=== PATIENT | female | born 1970 | race Caucasian/White ===

== ENCOUNTER → 2024-02-22 09:49 | Outpatient (BNVA) | payer BC, SELFPAY | PROVIDERS: PCP Physician Assistant Medical; Visit Provider Physician Assistant Surgical ==

== ENCOUNTER 2024-03-17 08:11 | Outpatient (AMB) | payer BC, SELFPAY ==
--- NOTE | 2024-03-17 11:57 | A.OFFVIS_ITS ---
VS Expanded 03/17/24 12:12 Height 5 ft 5 in Weight 273 lb BMI 45.4 Body Fat % 48.3 Body Fat Mass 131.8 Fat Free Mass 141 Visceral Fat Rating 16 Body Water % 36.8 Body Water Mass 100.4 Basal Metabolic Rate/Score 2,005 Intake Visit Reasons: [facility] [employer] BMI 45.4 Allergies acetaminophen [From Percocet] Allergy (Mild, Verified 03/17/24 11:58) Hives lisinopril Allergy (Mild, Verified 03/17/24 11:58) Cough oxycodone [From Percocet] Allergy (Mild, Verified 03/17/24 11:58) Hives Medication List - Last Reconciled 03/17/24 by Freeman Huffman MD amlodipine 10 mg PO DAILY atorvastatin 40 mg PO DAILY bupropion HCl XL 150 mg PO QAM losartan 100 mg PO DAILY sertraline 100 mg PO DAILY tirzepatide (Mounjaro) 12.5 mg subcut QWEEK HPI HPI [facility] BMI 45.4: Details: Start time: 11.55am, End time: 12.47pm ?I spent 47 minutes speaking with the patient on the phone plus an additional 5 minutes reviewing and updating records for a total of 52 minutes HPI Comments Details: Previous weight loss efforts: Mounjaro for 1yr: 3lbs, hypnosis, exercise Wakes up: 4am, Sleeps: 10pm Breakfast: 5.30am (apple sauce, bread, ramon) Lunch: 12pm (Arabic yogurt, cottage cheese, turkey with cheese Dinner: 5.30pm (chicken, lean cousine) Snacks: 8pm (fruits, or popcorn) Exercise: Has a treadmill Fluids: Coffee (1 cup/day with creamer), tea: none, soda: none, juice: none, ETOH: none PFSH Medical History (Updated 03/17/24 @ 12:04 by Freeman Huffman MD) Anxiety Depression Hyperlipidemia Hypertension Obstructive sleep apnea on CPAP Non-insulin dependent type 2 diabetes mellitus Morbid obesity Surgical History (Updated 02/22/24 @ 10:49 by Ramona Cartagena CMA) Hx of cholecystectomy Hx of appendectomy Hx of hysterectomy Social History (Updated 02/22/24 @ 10:49 by Ramona Cartagena CMA) Alcohol intake: current Alcohol intake frequency: holidays/special occasions only Alcohol type: wine and other Patient Tobacco Use Status: Never used Tobacco Telehealth Telehealth Telehealth Platform: Telephone Location of provider rendering services: practice address Location of patient: address on file Patient Identification confirmed using: Name, : Yes Telehealth method: voice only Patient verbally consented to treatment: Yes Patient verbally consented to billing insurance company: Yes Patient informed of any privacy concerns related to visit: Yes Minutes spent on Phone/Video with Pt.: 52 Assessment & Plan Assessment & Plan (1) Morbid obesity: Code(s): E66.01 - Morbid (severe) obesity due to excess calories Category: Medical Plan: 1.? Plan for lap sleeve gastrectomy. If diaphragmatic or ventral hernias are present at time of surgery, these will be repaired laparoscopically as well. 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 I emphasized the importance of close follow-up, adherence to instructions and good communication. 2. You will receive a link of our software danielle to generate an individualized nutritional and exercise plan specific for you. Please send me a screenshot of t he plans you will generate Meal to include lean meat (beef, fish, pork, turkey, chicken), or portuguese yogurt, or egg whites, or beans with a salad with olive oil and fruits (berries, pears, apples, kiwi). Avoid salt, breads, potatoes, rice, pasta, desserts. ?3. If you choose shakes, each shake would be drunk slowly, like coffee in a period of 2 hours. ?4. If you choose bars, cut each bar in 4 pieces and eat each piece in 30min ?to make each bar last 2 hours. ?5. I emphasized the importance of measuring accurately the food portion and measure it when serving the food in plate ?6. The meal portions include a specific number of forks of meat and salad. You always eat the meat portion but you can replace up to half of salad/vegetables portion with rice, potatoes or pasta, or a fruit ?if you like. The less you do it the better weight loss will be. ?7. One full-size fork is what it can be scooped on the fork without falling aside and not what can be bit with the fork. Use regular forks like those you find in a typical restaurant. ?8.? Please send me weight measurements as soon as possible and then once a week. Always include your diet and exercise plan. 9. The best choice would be to purchase a stationary bike, elliptical or treadmill at home that can track calories. Let me know if you do so I can give you an exercise plan. ?10.?It is important of avoiding and for at least 18 months postoperatively and has been discussed at the infosession. ?11. Goal is to lose at least 1.5-2lbs per week ?12. Goal to lose 10% of your weight before surgery, which is about 27lbs. Ultimate weight goal: 246lbs before surgery 13. Please follow the diet plan exactly without any change. If you don't like something about the plan or you feel hungry you need to communicate with me so I can help you revise the plan. You should not change the plan yourself. 14. Check your blood sugar daily. Let me know immediately if it is below 100 15. Check your blood pressure daily and let me know if your blood pressure is below 120/70 Orders: Orders Lipid Panel Today E11.9 - Type 2 diabetes mellitus without complications, E66.01 - Morbid (severe) obesity due to excess calories, E78.5 - Hyperlipidemia, unspecified, G47.33 - Obstructive sleep apnea (adult) (pediatric), I10 - Essential (primary) hypertension IRON PROFILE Today E11.9 - Type 2 diabetes mellitus without complications, E66.01 - Morbid (severe) obesity due to excess calories, E78.5 - Hyperlipidemia, unspecified, G47.33 - Obstructive sleep apnea (adult) (pediatric), I10 - Essential (primary) hypertension Comprehensive Met. Panel Today E11.9 - Type 2 diabetes mellitus without complications, E66.01 - Morbid (severe) obesity due to excess calories, E78.5 - Hyperlipidemia, unspecified, G47.33 - Obstructive sleep apnea (adult) (pediatric), I10 - Essential (primary) hypertension Vitamin B12 and Folate Today E11.9 - Type 2 diabetes mellitus without complications, E66.01 - Morbid (severe) obesity due to excess calories, E78.5 - Hyperlipidemia, unspecified, G47.33 - Obstructive sleep apnea (adult) (pediatric), I10 - Essential (primary) hypertension C Reactive Protein Today E11.9 - Type 2 diabetes mellitus without complications, E66.01 - Morbid (severe) obesity due to excess calories, E78.5 - Hyperlipidemia, unspecified, G47.33 - Obstructive sleep apnea (adult) (pediatric), I10 - Essential (primary) hypertension Vitamin A Today E11.9 - Type 2 diabetes mellitus without complications, E66.01 - Morbid (severe) obesity due to excess calories, E78.5 - Hyperlipidemia, unspecified, G47.33 - Obstructive sleep apnea (adult) (pediatric), I10 - Essential (primary) hypertension Vitamin D 25-OH Total Today E11.9 - Type 2 diabetes mellitus without complications, E66.01 - Morbid (severe) obesity due to excess calories, E78.5 - Hyperlipidemia, unspecified, G47.33 - Obstructive sleep apnea (adult) (pediatric), I10 - Essential (primary) hypertension XR chest 2V Today E11.9 - Type 2 diabetes mellitus without complications, E66.01 - Morbid (severe) obesity due to excess calories, E78.5 - Hyperlipidemia, unspecified, G47.33 - Obstructive sleep apnea (adult) (pediatric), I10 - Essential (primary) hypertension Insulin Today E11.9 - Type 2 diabetes mellitus without complications, E66.01 - Morbid (severe) obesity due to excess calories, E78.5 - Hyperlipidemia, unspecified, G47.33 - Obstructive sleep apnea (adult) (pediatric), I10 - Essential (primary) hypertension Hemoglobin A1c Today E11.9 - Type 2 diabetes mellitus without complications, E66.01 - Morbid (severe) obesity due to excess calories, E78.5 - Hyperlipidemia, unspecified, G47.33 - Obstructive sleep apnea (adult) (pediatric), I10 - Essential (primary) hypertension H Pylori Breath Test Today E11.9 - Type 2 diabetes mellitus without complications, E66.01 - Morbid (severe) obesity due to excess calories, E78.5 - Hyperlipidemia, unspecified, G47.33 - Obstructive sleep apnea (adult) (pediatric), I10 - Essential (primary) hypertension Complete Blood Count Auto Diff Today E11.9 - Type 2 diabetes mellitus without complications, E66.01 - Morbid (severe) obesity due to excess calories, E78.5 - Hyperlipidemia, unspecified, G47.33 - Obstructive sleep apnea (adult) (pediatric), I10 - Essential (primary) hypertension Zinc Today E11.9 - Type 2 diabetes mellitus without complications, E66.01 - Morbid (severe) obesity due to excess calories, E78.5 - Hyperlipidemia, unspecified, G47.33 - Obstructive sleep apnea (adult) (pediatric), I10 - Essential (primary) hypertension Vitamin B1 Today E11.9 - Type 2 diabetes mellitus without complications, E66.01 - Morbid (severe) obesity due to excess calories, E78.5 - Hyperlipidemia, unspecified, G47.33 - Obstructive sleep apnea (adult) (pediatric), I10 - Essential (primary) hypertension TSH reflex Free T4 Today E11.9 - Type 2 diabetes mellitus without complications, E66.01 - Morbid (severe) obesity due to excess calories, E78.5 - Hyperlipidemia, unspecified, G47.33 - Obstructive sleep apnea (adult) (pediatric), I10 - Essential (primary) hypertension Ferritin Today E11.9 - Type 2 diabetes mellitus without complications, E66.01 - Morbid (severe) obesity due to excess calories, E78.5 - Hyperlipidemia, unspecified, G47.33 - Obstructive sleep apnea (adult) (pediatric), I10 - E ssential (primary) hypertension US abdomen comp w elastography Today E11.9 - Type 2 diabetes mellitus without complications, E66.01 - Morbid (severe) obesity due to excess calories, E78.5 - Hyperlipidemia, unspecified, G47.33 - Obstructive sleep apnea (adult) (pediatric), I10 - Essential (primary) hypertension ECG 12 lead EKG Today E11.9 - Type 2 diabetes mellitus without complications, E66.01 - Morbid (severe) obesity due to excess calories, E78.5 - Hyperlipidemia, unspecified, G47.33 - Obstructive sleep apnea (adult) (pediatric), I10 - Es sential (primary) hypertension FL upper GI w air Today E11.9 - Type 2 diabetes mellitus without complications, E66.01 - Morbid (severe) obesity due to excess calories, E78.5 - Hyperlipidemia, unspecified, G47.33 - Obstructive sleep apnea (adult) (pediatric), I10 - Essential (primary) hypertension Referrals Behavioral Health Referral E11.9 - Type 2 diabetes mellitus without complications, E66.01 - Morbid (severe) obesity due to excess calories, E78.5 - Hyperlipidemia, unspecified, G47.33 - Obstructive sleep apnea (adult) (pediatric), I10 - Essential (primary) hypertension
[2024-03-17 12:12] VITALS: BMI 45.4
== END 2024-03-17 12:49 | disposition home or self-care (01) ==
LOC: HO.HBS 08:12
PROVIDERS: PCP Physician Assistant Medical; Visit Provider Surgery
DX: E66.01 Morbid (severe) obesity due to excess calories (principal); Z68.42 Body mass index [BMI] 45.0-49.9, adult
CPT/HCPCS: 99443

== ENCOUNTER → 2024-03-17 08:11 | Outpatient (BNVA) | payer BC, SELFPAY | PROVIDERS: PCP Physician Assistant Medical; Visit Provider Surgery ==

== ENCOUNTER 2024-03-28 16:11 | Outpatient (AMB) | payer BC, SELFPAY ==
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
== END 2024-03-28 16:34 | disposition home or self-care (01) ==
LOC: HO.HBST 16:11
PROVIDERS: PCP Physician Assistant Medical; Visit Provider Counselor Mental Health
DX: F32.A Depression, unspecified (principal); E66.01 Morbid (severe) obesity due to excess calories
CPT/HCPCS: 90791

== ENCOUNTER → 2024-03-28 16:11 | Outpatient (BNVA) | payer BC, SELFPAY | PROVIDERS: PCP Physician Assistant Medical; Visit Provider Counselor Mental Health ==

== ENCOUNTER 2024-03-31 07:37 | Outpatient (REF) | payer BC, SELFPAY ==
--- NOTE | ~2024-03-31 | US_ITS ---
EXAMINATION: US COMPLETE ABDOMEN WITH LIVER ELASTOGRAPHY CLINICAL INFORMATION: Morbid obesity. COMPARISON: None available. TECHNIQUE: Real-time imaging of the abdominal viscera. Noninvasive ultrasound liver fibrosis assessment is performed using Mikhail ElastPQ point quantification shear wave elastography (2D-SWE) with a C5-2 MHz transducer. Multiple elastography samples are obtained. FINDINGS: PANCREAS: The visualized pancreatic head and body are normal in appearance. The remainder of the pancreas is obscured from visualization by the overlying bowel gas. ABDOMINAL AORTA: The proximal, middle, and distal aortic segments are normal in caliber. INFERIOR VENA CAVA: Visualized portions are normal. LIVER: The liver is enlarged with increased echogenicity consistent with hepatic steatosis. No focal lesion or intrahepatic biliary duct dilatation. The right lobe measures 20.2 cm in length. The left lobe measures 13.3 cm in length. Portal flow is hepatopedal. Shear wave liver elastography median stiffness is 1.21 m/s (reference: normal median stiffness is 1.3 m/s or less). IQR/median stiffness to assess sampling precision is 0.12 (reference: good quality data set is IQR/median stiffness of 0.15 or less). GALLBLADDER: Normal. The gallbladder is physiologically distended without evidence of stones, sludge, polyps, wall thickening or pericholecystic fluid. COMMON BILE DUCT: Normal in caliber measuring 0.8 cm in diameter. RIGHT KIDNEY: Normal. No hydronephrosis. No renal calculi or focal parenchymal lesions. The kidney measures 13.6 cm in maximum dimension. LEFT KIDNEY: A benign 4.5 cm upper pole Bosniak class I renal cyst is noted which requires no additional imaging or follow up. There is a brightly echogenic 1.1 cm round cortical mass present in the mid kidney with ultrasound appearances consistent with an angiomyolipoma. No hydronephrosis. No renal calculi. The kidney measures 12.4 cm in maximum dimension. SPLEEN: Normal. The spleen measures 11.7 cm in maximum dimension. FREE FLUID: None. US/US abdomen comp w elastography IMPRESSION: 1. Enlarged fatty liver. 2. Liver Elastography: In the absence of other known clinical signs, measurements rule out compensated advanced chronic liver disease. If there are known clinical signs, further testing may be needed for confirmation. 3. Incidentally noted solid 1.1 cm left renal mass with appearances consistent with a benign angiomyolipoma. This could be confirmed with noncontrast CT scan. REFERENCE: Society of Radiologists in Ultrasound Liver Stiffness Thresholds (2020): LIVER STIFFNESS THRESHOLDS: *Liver Stiffness equal or less than 1.3 m/s: High probability of being normal. *Liver Stiffness less than 1.7 m/s: In the absence of other known clinical signs, rules out compensated advanced chronic liver disease. *Liver Stiffness 1.7-2.1 m/s: Suggestive of compensated advanced chronic liver disease but need further test for confirmation. *Liver Stiffness over 2.1 m/s: Rules in compensated advanced chronic liver disease. *Liver Stiffness over 2.4 m/s: Suggestive of clinically significant portal hypertension. QUALITY OF DATA SET: *IQR/Median value equal or less than 0.15 implies a quality data set. *IQR/Median value over 0.15 implies a poor quality data set. SIGNIFICANT CHANGE FROM PRIOR EXAM: Significant change if liver stiffness measurement is 10% or greater from prior exam. OTHER CONSIDERATIONS: The stage of liver fibrosis may be overestimated in the setting of acute hepatitis, liver inflammation, elevated liver function tests, hepatic vascular congestion, obstructive cholestasis, non-fasting state, and infiltrative diseases such as amyloidosis and lymphoma. In some patients with NAFLD, the liver stiffness thresholds for compensated advanced chronic liver disease may be lower. In causes other than viral hepatitis and NAFLD, liver stiffness thresholds are not well established.
--- NOTE | ~2024-03-31 | XR_ITS ---
EXAMINATION: XR CHEST CLINICAL INFORMATION: Morbid, severe obesity due to excess calories. COMPARISON: None available. TECHNIQUE: 2 views of the chest were obtained. FINDINGS: There is no gross pneumothorax. Lung volumes are low. Heart size is normal. No focal consolidation to suggest pneumonia. Mild blunting of the left costophrenic angle may represent trace pleural effusion or pleural thickening. XR/XR chest 2V IMPRESSION: Mild blunting of the left costophrenic angle may represent trace pleural effusion or pleural thickening. This study was presented today April 10, 2024 for interpretation. STAT results provided at this time as requested by referring provider.
[2024-03-31 07:54] LABS: MANUAL DIFF FLAG NO
--- NOTE | 2024-03-31 07:56 | ECG_ITS ---
Test Reason : preop, obesity Blood Pressure : / mmHG Vent. Rate : 075 BPM Atrial Rate : 075 BPM P-R Int : 148 ms QRS Dur : 098 ms QT Int : 412 ms P-R-T Axes : 038 -06 029 degrees QTc Int : 460 ms Normal sinus rhythm Minimal voltage criteria for LVH, may be normal variant ( R in aVL ) Nonspecific ST abnormality Abnormal ECG No previous ECGs available Referred By: Freeman Huffman Electronically Signed By:Jaycob Casiano
[2024-03-31 08:43] LABS: Basophils Percent Auto 0.6 % (0-2); Eosinophils Absolute Auto 0.2 X10*3/uL (0.0-0.4); Eosinophils Percent Auto 3.5 % (0-4); Hematocrit 40.7 % (37.0-47.0); Hemoglobin 13.4 g/dl (12.0-16.0); Imm Gran Abs Auto 0.03 X10*3/uL (0.00-0.03); Imm Gran Pct Auto 0.4 % (0.0-0.4); Lymphocytes Absolute Auto 1.6 X10*3/uL (1.2-4.9); Lymphocytes Percent Auto 22.8 % (20-40); Mean Corpuscular HGB Conc 32.9 g/dl (31.0-35.0); Mean Corpuscular Hemoglobin 31.9 pg (27.0-33.0); Mean Corpuscular Volume 96.9 fL (80.0-98.0); Mean Platelet Volume 9.3 fL (9.4-12.3); Monocytes Absolute Auto 0.4 X10*3/uL (0.1-1.2); Monocytes Percent Auto 5.3 % (2-11); Neutrophils Absolute Auto 4.7 x10*3/uL (2.0-8.3); Neutrophils Percent Auto 67.4 % (45-73); Platelet Count 351 X10*3/uL (160-400); White Blood Count 6.9 X10*3/uL (4.8-10.8)
[2024-03-31 09:20] LABS: Alanine Aminotransferase 53 U/L (0-31); Albumin Level 4.4 g/dL (3.5-5.0); Alkaline Phosphatase 94 U/L (39-117); Anion Gap 12 (12-20); Aspartate Amino Transferase 28 U/L (5-31); Bilirubin Total 0.8 mg/dL (0.0-1.0); Blood Urea Nitrogen 15 mg/dL (9-16); C Reactive Protein 0.79 mg/dL (< or = 0.50); Calcium 9.4 mg/dL (8.4-10.2); Carbon Dioxide 27 mmol/L (22-29); Chloride 107 mmol/L (96-108); Cholesterol 134 mg/dL (<200); Estimated Glomerular Filt Rate > 60; Glucose Random 115 mg/dL (60-115); HDL Cholesterol 36 mg/dL (>40); Iron 82 mcg/dL (30-160); LDL Cholesterol Calculated 78 mg/dL (<100); Percent Iron Saturation 27 % (15-50); Potassium 4.1 mmol/L (3.3-5.1); Sodium 142 mmol/L (135-145); Total Iron Binding Capacity 304 mcg/dL (228-428); Total Protein 7.4 g/dL (6.5-8.0); Triglycerides 101 mg/dL (<150); Unsaturated Iron Binding 222 ug/dL
[2024-03-31 09:25] LABS: Estimated Average Glucose 117 mg/dL; Hemoglobin A1c % 5.7 % (<6.0)
[2024-03-31 09:40] LABS: Ferritin 200 ng/mL (10-250); TSH reflex Free T4 1.93 uIU/mL (0.32-4.0); Vitamin D 25-OH Total 10.2 ng/mL (>30)
[2024-03-31 09:58] LABS: Insulin 27 uU/mL (2-29)
[2024-03-31 11:12] LABS: Vitamin B12 1484 pg/mL (200-900)
[2024-04-05 02:14] LABS: Zinc 75 mcg/dL (60-130)
[2024-04-05 16:34] LABS: Vitamin B1 <6 nmol/L (8-30)
[2024-04-05 23:38] LABS: Vitamin A 45 mcg/dL (38-98)
== END 2024-03-31 07:38 | disposition home or self-care (01) ==
LOC: HO.US 07:37
PROVIDERS: PCP Physician Assistant Medical; Visit Provider Surgery
DX: E66.01 Morbid (severe) obesity due to excess calories (principal); E11.9 Type 2 diabetes mellitus without complications; I10 Essential (primary) hypertension; E78.5 Hyperlipidemia, unspecified; G47.33 Obstructive sleep apnea (adult) (pediatric)
CPT/HCPCS: 36415; 71046; 76700; 76981; 80053; 80061; 82306; 82607; 82728; 82746; 83036; 83525; 83540; 84425; 84443; 84590; 84630; 85025; 86140; 93005

== ENCOUNTER → 2024-03-31 07:56 | Outpatient (BNV) | payer BC, SELFPAY | PROVIDERS: PCP Physician Assistant Medical; Visit Provider Internal Medicine Cardiovascular Disease | DX: R94.31 Abnormal electrocardiogram [ECG] [EKG] (principal) | CPT/HCPCS: 93010 ==

== ENCOUNTER 2024-04-10 15:53 | Outpatient (AMB) | payer BC, SELFPAY ==
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
== END 2024-04-10 16:51 | disposition home or self-care (01) ==
PROVIDERS: PCP Physician Assistant Medical; Visit Provider Counselor Mental Health
DX: F33.1 Major depressive disorder, recurrent, moderate (principal); E66.01 Morbid (severe) obesity due to excess calories; Z68.45 Body mass index [BMI] 70 or greater, adult
CPT/HCPCS: 90834

== ENCOUNTER → 2024-04-10 15:53 | Outpatient (BNVA) | payer BC, SELFPAY | PROVIDERS: PCP Physician Assistant Medical; Visit Provider Counselor Mental Health ==

== ENCOUNTER 2024-04-26 08:41 | Day surgery (SDC) | payer BC, SELFPAY ==
[2024-04-21 14:30] VITALS: BMI 45.4
--- NOTE | 2024-04-24 12:19 | HO.ANESPROP2 ---
Documented by User: Parul Rutherford NP 04/24/24 12:21 HPI - Anesthesia Eval Consult details Narrative: 53yo F for Upper Endoscopy Anesthesia Pre-Procedure Meds Is the patient on any of the following meds?: GLP1/DPP4 PMFSH Active Problems Active Problems: All Active Problems Abnormal EKG (Acute) Vitamin D deficiency (Acute) Anxiety (Acute) Depression (Acute) Hyperlipidemia (Acute) Hypertension (Acute) Obstructive sleep apnea on CPAP (Acute) Non-insulin dependent type 2 diabetes mellitus (Acute) Morbid obesity (Acute) Past Medical History Medical History Anxiety Depression Hyperlipidemia Hypertension Obstructive sleep apnea on CPAP Non-insulin dependent type 2 diabetes mellitus Morbid obesity Surgical History Surgical History Hx of cholecystectomy Hx of appendectomy Hx of hysterectomy Social History Social History Alcohol intake: current Alcohol intake frequency: holidays/special occasions only Alcohol type: wine and other Patient Tobacco Use Status: Never used Tobacco Are you DNR?: No Advance Directives: No Advance Directives Information Provided: Yes Advance Directives on File: No Nutrition Risks: No Nutritional Risk Patient : No Meds Allergies Allergy/AdvReac Type Severity Reaction Status Date / Time lisinopril Allergy Mild Cough Verified 03/17/24 11:58 oxycodone [From Percocet] Allergy Mild Hives Verified 03/17/24 11:58 Home Medications ?Medication ?Instructions ?Recorded ?Confirmed ?Last Taken ?Type amlodipine 10 mg tablet 10 mg PO DAILY 02/22/24 04/21/24 Unknown History atorvastatin 40 mg tablet 40 mg PO DAILY 02/22/24 04/21/24 Unknown History losartan 100 mg tablet 100 mg PO DAILY 02/22/24 04/21/24 Unknown History sertraline 100 mg tablet 100 mg PO DAILY 02/22/24 04/21/24 Unknown History bupropion HCl 150 mg 24 hr tablet, 150 mg PO QAM 03/17/24 04/21/24 Unknown History extended release tirzepatide 12.5 mg/0.5 mL 12.5 mg subcut QWEEK 03/17/24 04/21/24 Unknown History subcutaneous pen injector (Liv) Exam Height,Weight and Vital Signs: Height 5 ft 5 in Weight 123.831 kg Narrative Narrative: EKG 03/2024 Vent. Rate : 075 BPM Atrial Rate : 075 BPM P-R Int : 148 ms QRS Dur : 098 ms QT Int : 412 ms P-R-T Axes : 038 -06 029 degrees QTc Int : 460 ms Normal sinus rhythm Minimal voltage criteria for LVH, may be normal variant ( R in aVL ) Nonspecific ST abnormality Abnormal ECG No previous ECGs available Assessment and Plan Assessment Anesthesia Assessment: Chart Reviewed Documented by User: Stacy Jeffries MD 04/26/24 10:43 PMFSH Past Medical History Medical History Anxiety Depression Hyperlipidemia Hypertension Obstructive sleep apnea on CPAP Non-insulin dependent type 2 diabetes mellitus Morbid obesity Family History Family history of problems with anesthesia: No Surgical History Surgical History Hx of cholecystectomy Hx of appendectomy Hx of hysterectomy History of Problems with Anesthesia: No Social History Social History Alcohol intake: current Alcohol intake frequency: holidays/special occasions only Alcohol type: wine and other Patient Tobacco Use Status: Never used Tobacco Are you DNR?: No Advance Directives: No Advance Directives Information Provided: Yes Advance Directives on File: No Nutrition Risks: No Nutritional Risk Patient : No Meds Allergies Allergy/AdvReac Type Severity Reaction Status Date / Time lisinopril Allergy Mild Cough Verified 03/17/24 11:58 oxycodone [From Percocet] Allergy Mild Hives Verified 03/17/24 11:58 Home Medications ?Medication ?Instructions ?Recorded ?Confirmed ?Last Taken ?Type amlodipine 10 mg tablet 10 mg PO DAILY 02/22/24 04/21/24 Unknown History atorvastatin 40 mg tablet 40 mg PO DAILY 02/22/24 04/21/24 Unknown History losartan 100 mg tablet 100 mg PO DAILY 02/22/24 04/21/24 Unknown History sertraline 100 mg tablet 100 mg PO DAILY 02/22/24 04/21/24 Unknown History bupropion HCl 150 mg 24 hr tablet, 150 mg PO QAM 03/17/24 04/21/24 Unknown History extended release tirzepatide 12.5 mg/0.5 mL 12.5 mg subcut QWEEK 03/17/24 04/21/24 Unknown History subcutaneous pen injector (Mounjaro) Exam Height,Weight and Vital Signs: Height 5 ft 5 in Weight 123.831 kg Vital Signs Temp Pulse Resp BP Pulse Ox O2 Del Method 04/26/24 09:24 97.4 F 63 16 130/70 98 Room Air Pertinent Lab Results Pertinent Lab Results: Lab Results 04/26/24 Range/Units 08:52 POC Glucose 100 (60-115) mg/dL Airway Mallampati Class: III TM Dist: >3cm Neck ROM: Full Loose/Missing/Broken Teeth: No (Denies broken, loose, missing teeth) Heart: RRR Lungs: CTAB Assessment and Plan Assessment Anesthesia Assessment: Anesthesia Plan Discussed and Chart Reviewed Final Anesthetic Review Family History of Problems with Anesthesia: No History of Problems with Anesthesia: No NPO: Yes ASA Class: III Final Preanesthetic Review: No Changes in Pt Med Stat, Meds/Allgs Chart Reviewed, Consent Obtained/Reviewed and Anes Risks/Benef Reviewed Patient Risk: Intermediate Procedure Risk: Low Assessment/Block/Sedation in SS: Assess/Block/Sedation-SS Anesthetic Plan Anesthetic Plan: GA and TIVA Disposition: Standard PACU
[2024-04-26 09:11] LABS: Glucose, Whole Blood 100 mg/dL (60-115)
[2024-04-26 09:24] VITALS: BP 130/70; PULSE 63; RESP 16; TEMP 36.3; O2SAT 98
[2024-04-26] MEDS: Lactated Ringers 1,000 ML 100 ML IVCONT (09:32)
--- NOTE | 2024-04-26 10:32 | P.HPSUR_ITS ---
Pre-Procedural Eval Section A - 24 Hr Update-Section A only Date of Service: 04/26/24 The patient is an INPATIENT: No The patient has been examined within 24 hours of the surgical procedure. The History & Physical has been completed within 30 days and I have reviewed it.: Yes Section B - Complete if H&P > 30 days Chief Complaint: Morbid (severe) obesity due to excess calories Details of Present Illness: GERD Relevant Family History (Specify if Yes): No Relevant Social History: None Present Medications: None Medical History: No relevant PMH History of Previous Operations: No relevant previous surgery Allergies: Allergies Allergy/AdvReac Type Severity Reaction Status Date / Time lisinopril Allergy Mild Cough Verified 03/17/24 11:58 oxycodone [From Percocet] Allergy Mild Hives Verified 03/17/24 11:58 Review of Systems Sugical H&P ROS: Negative: Constitution, Cardiovascular, Respiratory, Neurological, Psychiatric, Hem-Onc, Allergic/Immunologic, Gastrointestinal, Genitourinary, Musculoskeletal, Integumentary, Endocrine and Eyes/Ears/Nose/Throat Exam Surgical H&P Exam: Normal: HEENT, Normal: Heart, Normal: Lungs, Normal: Extre mities, Normal: Abdomen, Normal: Skin and Normal: Neurological Plan Diagnosis/Plan: Unchanged (EGD to assess etiology of GERD. Risks of bleeding and perforation were discussed with the patient and he is in agreement with the plan.) I have reviewed the history and physical and performed a pertinent physical examination on my patient. No changes have occurred unless specified. Time Spent With Patient Time: Total time managing care of this patient today ____ minutes.
--- NOTE | 2024-04-26 10:38 | P.BOP_ITS ---
Brief Operative Note Date of Service: 04/26/24 Pre-op diagnosis: GERD Post-op diagnosis: same Procedure: PROCEDURE DATE: 04/26/2024 PREOPERATIVE DIAGNOSIS: GERD POSTOPERATIVE DIAGNOSIS: ?Same as above. 1) small hiatal hernia, 2) distal gastritis PROCEDURE: Yexlwwtn-[id number]-qodgbzoyghnt with biopsies Surgeon: Matthew Huffman M.D.. Ph.D. Director Of Early Childhood: None ? Anesthesia: IV sedation Estimated blood loss: ?Minimal FINDINGS AND PROCEDURE: ? OPERATIVE INDICATIONS: ?The patient is a 53 year old female known to me who is interested in bariatric surgery. The patient has GERD. Based on this information I recommended an upper endoscopy to evaluate the patient's symptoms. Risks and complications of the surgery were discussed with the patient in advance particularly the possibility of perforation or bleeding that may require surgical intervention. The patient understood the risks and was in agreement with the plan. ? PROCEDURE: After informed consent was obtained by the patient, the patient was ?transferred to the Operating Room and was placed in the supine position.? After successful induction of IV sedation, a mouth block was inserted and the patient was placed in the left lateral decubitus position. An upper endoscopy was performed next, the oropharynx and esophagus appeared within the normal limits. There was a small hiatal hernia. The z-line was smooth. Two biopsies were obtained from the distal esophagus 2-3 cm proximal to the GE junction and two additional biopsies from the GE junction. The stomach was entered and it appeared to be of normal size. There was mild gastritis at distal antrum. There was no stricture or ulcer. A biopsy was obtained from the gastric fundus and the antrum. No significant bleeding was noted from any of the biopsy sites. The scope was then advanced into the duodenum which appeared to be normal as well. At that point the duodenum ?and the stomach were decompressed and the scope was withdrawn from the patient's mouth. The patient extubated and was transferred in stable condition to the Recovery Room for further care. I was present and performed all steps of the procedure. There were no residents to assist with this case. Jasvir Huffman M.D., Ph.D. Surgeon: Freeman Huffman MD Anesthesia: MAC Was an Director Of Early Childhood used for this Procedure?: No Estimated blood loss (mL): 0 IV fluids (mL): 400 Urine output (mL): 0 (No Blackmon to record output) Pathology: other (1) antrum x1, 2) fundus x1, 3) GE junction x2, 4) distal esophagus x2) Condition: stable Disposition: PACU
[2024-04-26 11:18] VITALS: BP 137/63; PULSE 86; RESP 18; TEMP 36.6; O2SAT 98
[2024-04-26 11:33] VITALS: BP 129/65; PULSE 69; RESP 16; TEMP 36.4; O2SAT 98
== END 2024-04-26 12:00 | disposition home or self-care (01) ==
PROVIDERS: PCP Physician Assistant Medical; Visit Provider Surgery
PROC: 0DJ08ZZ Inspection of Upper Intestinal Tract, Via Natural or Artificial Opening Endoscopic (ICD-10-PCS; CPT 43235; principal; 2024-04-26 10:20)
DX: K21.9 Gastro-esophageal reflux disease without esophagitis (principal); K44.9 Diaphragmatic hernia without obstruction or gangrene; K29.60 Other gastritis without bleeding; E66.01 Morbid (severe) obesity due to excess calories; Z68.42 Body mass index [BMI] 45.0-49.9, adult; I10 Essential (primary) hypertension; E78.5 Hyperlipidemia, unspecified; E11.9 Type 2 diabetes mellitus without complications; G47.33 Obstructive sleep apnea (adult) (pediatric); F32.A Depression, unspecified; F41.9 Anxiety disorder, unspecified; Z79.84 Long term (current) use of oral hypoglycemic drugs; Z79.899 Other long term (current) drug therapy; Z99.89 Dependence on other enabling machines and devices; Z88.5 Allergy status to narcotic agent; Z88.8 Allergy status to other drugs, medicaments and biological substances; Z90.49 Acquired absence of other specified parts of digestive tract
CPT/HCPCS: 43239; 82947; 88305; 88313; 88342; J2704

== ENCOUNTER → 2024-04-26 08:41 | Outpatient (BNV) | payer BC, SELFPAY | PROVIDERS: PCP Physician Assistant Medical; Visit Provider Surgery | DX: K44.0 Diaphragmatic hernia with obstruction, without gangrene (principal) | CPT/HCPCS: 43239 ==

== ENCOUNTER 2024-05-01 14:00 | Outpatient (AMB) | payer BC, SELFPAY ==
--- NOTE | 2024-05-01 08:29 | MHC.OFFVISWM ---
VS Expanded 05/01/24 08:30 Height 5 ft 5 in Weight 260 lb BMI 43.3 Body Fat % 58.6 Body Fat Mass 152.3 Fat Free Mass 107.6 Visceral Fat Rating 24 Body Water % 28.4 Body Water Mass 73.8 Muscle Mass/Score 101.2 Basal Metabolic Rate/Score 1,425 Intake Visit Reasons: (TV) F/U SWL () Fan Blade Aligner Required: No Allergies lisinopril Allergy (Mild, Verified 03/17/24 11:58) Cough oxycodone [From Percocet] Allergy (Mild, Verified 03/17/24 11:58) Hives Medication List - Last Reconciled 05/01/24 by AKILA Mayen amlodipine 10 mg PO DAILY atorvastatin 40 mg PO DAILY bupropion HCl XL 150 mg PO QAM cholecalciferol (vitamin D3) 125 mcg PO DAILY losartan 100 mg PO DAILY sertraline 100 mg PO DAILY tirzepatide (Mounjaro) 12.5 mg subcut QWEEK HPI Comments Details: Patient is a pleasant 53-year-old female who returns to the office today in follow-up for preop counseling in our Surgical weight loss program. She was initially seen on 03/17/2024 with a weight of 273 lb and a BMI of 45.4. Weight today is 260 lb with a BMI of 43.3. This corresponds to a 13 lb weight loss or 4.7% total body weight loss. Using Right BMI danielle, States she likes the danielle. she recognizes that she needs to increase her exercise and water intake. She has been following the meal plan as directed through the danielle. She has been checking her BP and 120's/70s with her medications and she denies any lightheadedness Meal plan: premier protein rtd 1/2 and then other 1/2 mid morning built bar meal 9 forks protein and 9 forks veg built bar drinking 8 oz exercise plan: treadmill at home 2 x per week speed 2.8, no incline PFSH Medical History Anxiety Depression Hyperlipidemia Hypertension Obstructive sleep apnea on CPAP Non-insulin dependent type 2 diabetes mellitus Morbid obesity Surgical History Hx of cholecystectomy Hx of appendectomy Hx of hysterectomy Social History Alcohol intake: current Alcohol intake frequency: holidays/special occasions only Alcohol type: wine and other Patient Tobacco Use Status: Never used Tobacco Physical Exam Vital Signs: BMI result Body Mass Index 43.3 Telehealth Telehealth Telehealth Platform: Telephone Location of provider rendering services: practice address Location of patient: address on file Patient Identification confirmed using: Name, : Yes Telehealth method: voice only Patient verbally consented to treatment: Yes Patient verbally consented to billing insurance company: Yes Patient informed of any privacy concerns related to visit: Yes Minutes spent on Phone/Video with Pt.: 15 Assessment & Plan Assessment & Plan (1) Morbid obesity: Code(s): E66.01 - Morbid (severe) obesity due to excess calories Category: Medical Plan: Patient is following the meal plan as directed through the right BMI danielle. she was encouraged to increase her water intake and it was explained to her the impact of fluids on her kidneys, daily activities, preop and postop course. Encouraged to drink approximately 64 oz of fluids daily. Additionally, we discussed her exercise. Encouraged her to exercise on her treadmill at home daily. She states that she is uncomfortable going to the gym. She was educated that she does not need to go to the gym and that she certainly can use her treadmill at home. She is going to continue using it with a goal of increasing her speed to an ultimate goal of 3. She will additionally then begin incline as directed by Dr. Huffman. We will have her follow-up with him in several weeks. She was encouraged to continue to send in her weight measurements weekly and text with any questions or concerns.
[2024-05-01 08:30] VITALS: BMI 43.3
== END 2024-05-01 14:27 | disposition home or self-care (01) ==
LOC: HO.HBS 14:00
PROVIDERS: PCP Physician Assistant Medical; Visit Provider Physician Assistant Surgical
DX: E66.01 Morbid (severe) obesity due to excess calories (principal); Z68.41 Body mass index [BMI] 40.0-44.9, adult
CPT/HCPCS: 99442

== ENCOUNTER → 2024-05-01 14:00 | Outpatient (BNVA) | payer BC, SELFPAY | PROVIDERS: PCP Physician Assistant Medical; Visit Provider Physician Assistant Surgical | DX: E66.01 Morbid (severe) obesity due to excess calories (principal) ==

== ENCOUNTER → 2024-05-04 08:02 | Outpatient (REF) | payer BC, SELFPAY ==
--- NOTE | 2024-05-04 11:34 | CA_ITS ---
Acquisition Time: 2024-05-04 08:44:07 Total Exercise Time: 00:04:21 Test Indications: Abnormal ECG Medications: AMLODIPINE ATORVASTATIN BUPROPION LOSARTAN SERTRALINE ADRIA Protocol: VAUGHN Max HR: 142 BPM 85% of Pred: 166 BPM Max BP: 180/050 mmHG Max Work Load: 6.2 METS Exercise stress test exerc ise 4 min 21 sec of Vaughn protocol achieving 84% MPHR and 6.2 METs , with moderate SOB, without arrhythmias, with normototensive response to exercise, with suboptimal EKGs. Breathing returned to normal with rest. Test reviewed with Dr. Vicki Whiting for nuclear stress test due to barely acheving target rate, decreased in exercise capacity, moderate SOB, suboptimal exericise time Referred By: Freeman Huffman Overread By: Leda Aguirre
== END ==
LOC: HO.CARD 08:02
PROVIDERS: PCP Physician Assistant Medical; Visit Provider Surgery
DX: R94.31 Abnormal electrocardiogram [ECG] [EKG] (principal)
CPT/HCPCS: 93017; 93306

== ENCOUNTER → 2024-05-04 11:34 | Outpatient (BNV) | payer BC, SELFPAY | PROVIDERS: PCP Physician Assistant Medical; Visit Provider Nurse Practitioner | DX: R06.02 Shortness of breath (principal) | CPT/HCPCS: 93016; 93018 ==

== ENCOUNTER 2024-05-19 08:05 | Outpatient (AMB) | payer BC, SELFPAY ==
--- NOTE | 2024-05-19 10:01 | MHC.OFFVISWM ---
VS Expanded 05/19/24 10:18 Height 5 ft 5 in Weight 254 lb 6 oz BMI 42.3 Body Fat % 57.2 Body Fat Mass 145.6 Fat Free Mass 109.2 Visceral Fat Rating 23 Body Water % 29.4 Body Water Mass 74.8 Basal Metabolic Rate/Score 1,438 Intake Visit Reasons: TV Follow Up SWL Allergies lisinopril Allergy (Mild, Verified 03/17/24 11:58) Cough oxycodone [From Percocet] Allergy (Mild, Verified 03/17/24 11:58) Hives HPI HPI TV Follow Up SWL: Details: Start time: 9.51am, End time: 10.21am ?I spent 25 minutes speaking with the patient on the phone plus an additional 5 minutes reviewing and updating records for a total of 30 minutes HPI Comments Details: Overall weight loss: 25lbs, or 8.9%TBWL Nutritional plan: two 1/2 bottle premade Premier shakes, 2 Built protein bars and one meal (6 forks of protein and 6 forks of salad or vegetables)) Exercise: walking outside x3/wk PFSH Medical History Anxiety Depression Hyperlipidemia Hypertension Obstructive sleep apnea on CPAP Non-insulin dependent type 2 diabetes mellitus Morbid obesity Surgical History Hx of cholecystectomy Hx of appendectomy Hx of hysterectomy Social History Alcohol intake: current Alcohol intake frequency: holidays/special occasions only Alcohol type: wine and other Patient Tobacco Use Status: Never used Tobacco Telehealth Telehealth Telehealth Platform: Telephone Location of provider rendering services: practice address Location of patient: address on file Patient Identification confirmed using: Name, : Yes Telehealth method: voice only Patient verbally consented to treatment: Yes Patient verbally consented to billing insurance company: Yes Patient informed of any privacy concerns related to visit: Yes Minutes spent on Phone/Video with Pt.: 30 Assessment & Plan Assessment & Plan (1) Morbid obesity: Code(s): E66.01 - Morbid (severe) obesity due to excess calories Category: Medical Plan: 1. Plan for lap sleeve gastrectomy including upper GI endoscopy. All tests has been completed and reviewed and the patient is cleared for the surgery. ?If diaphragmatic or ventral hernias are present at time of surgery, these will be repaired laparoscopically as well. Risks and complications were discussed in detail including possible conversion to an open procedure, anastomotic leak, bleeding requiring transfusion, small bowel obstruction, , DVT and pulmonary embolism, cardiac, or pulmonary complications, as senior care complications such as anastomotic ulcer, insufficient weight loss and vitamin deficiencies. I emphasized the importance of close follow-up, adherence to instructions and good communication. So far she has proven to be an excellent communicator and very compliant with all our directions accomplishing a great weight loss. I believe that she is an excellent candidate and she is ready. 2. The patient participated in a structured preoperative lifestyle intervention program supervised by a physician the 2 months preceding the surgical procedure. The lifestyle intervention included a structured nutritional plan with a specific daily protein intake goal, an exercise plan with a 2000 calorie burn weekly goal, weekly behavior modification guidance and completion of eight 1-hour online nutritional classes and passing successfully the corresponding quizzes. Adherence to preoperative care plan was demonstrated by completing an extensive preoperative work-up. Program participation was demonstrated by completing 3 visits with our medical team and by sharing weekly weight measurements weekly for 2 consecutive months via an approved body composition scale. Compliance to the lifestyle intervention was demonstrated by achieving a 21lbs weight-loss or 8.9% total body weight loss (TBWL). No medications were used to achieve this weight loss. In our published experience an over 7% preoperative TBWL, achieved by meeting the diet and exercise goals of our program improves surgical outcomes, reduces the potential for surgical complications, and predicts a statistically significant higher weight loss up to 6 years postoperatively. 3 .Continue same nutritional plan 4. Purchase a stationary bike at home. In the meantime track the calories you burn when you walk outside 5. Continue to send me weight measurements weekly on Fridays Medications: New thiamine HCl (vitamin B1) 100 mg PO DAILY 90 tabs 0RF E51.9 - Thiamine deficiency, unspecified
[2024-05-19 10:18] VITALS: BMI 42.3
== END 2024-05-19 10:22 | disposition home or self-care (01) ==
LOC: HO.HBS 08:05
PROVIDERS: PCP Physician Assistant Medical; Visit Provider Surgery
DX: E66.01 Morbid (severe) obesity due to excess calories (principal); Z68.41 Body mass index [BMI] 40.0-44.9, adult
CPT/HCPCS: 99443

== ENCOUNTER → 2024-05-19 08:05 | Outpatient (BNVA) | payer BC, SELFPAY | PROVIDERS: PCP Physician Assistant Medical; Visit Provider Surgery ==

== ENCOUNTER 2024-05-22 08:56 | Outpatient (REF) | payer BC, SELFPAY ==
--- NOTE | ~2024-05-22 | FL_ITS ---
EXAMINATION: XR FLUOROSCOPY UPPER GI WITH AIR CLINICAL INFORMATION: Preop evaluation prior to bariatric surgery COMPARISON: None TECHNIQUE: Fluoroscopic air contrast upper GI examination was performed utilizing standard techniques with thin and thick barium and effervescent granules. Numerous spot images were obtained. FINDINGS: Dual and single contrast images of the esophagus demonstrate normal caliber, contour, and mucosal pattern. No evidence of stricture, mass, or ulcerations identified. Esophageal peristalsis was normal. A small type I hiatal hernia is present. Mild gastroesophageal reflux is seen in the distal esophagus. Dual contrast and single contrast images of the stomach demonstrated normal contour. Evaluation of the gastric mucosa is limited due to poor coating of the barium. Contrast freely passed into the gastric antrum and duodenal bulb without delay. Single and air-contrast images of the duodenal bulb demonstrate no abnormality. The duodenal sweep has a normal appearance, course, and mucosal fold appearance. The imaged proximal jejunum has a normal fold pattern and caliber. FLUOROSCOPY TIME: 3 minutes 4 seconds Number of Spot Images: 9 Number of Cine: 13 DOSE AREA PRODUCT: [id number] uGy-m2 (microgray-meter squared) FL/FL upper GI w air IMPRESSION: 1. Small type I hiatal hernia 2. Mild gastroesophageal reflux 3. Limited evaluation of the gastric mucosa due to poor coating of the barium. This procedure was performed by David Talbert PA-C, and supervised by Dr. Aguirre
== END 2024-05-22 08:57 | disposition home or self-care (01) ==
LOC: HO.XRAY 08:56
PROVIDERS: Visit Provider Surgery
DX: E66.01 Morbid (severe) obesity due to excess calories (principal); E11.9 Type 2 diabetes mellitus without complications; E78.5 Hyperlipidemia, unspecified
CPT/HCPCS: 74246

== ENCOUNTER → 2024-05-22 09:30 | Outpatient (BNV) | payer BC, SELFPAY | PROVIDERS: Visit Provider Physician Assistant Surgical | DX: E66.01 Morbid (severe) obesity due to excess calories (principal); Z01.818 Encounter for other preprocedural examination | CPT/HCPCS: 74246 ==

== ENCOUNTER → 2024-06-16 07:46 | Outpatient (REF) | payer BC, SELFPAY ==
--- NOTE | ~2024-06-16 | NM_ITS ---
Lexiscan Myocardial perfusion study Indication: Preoperative cardiovascular evaluation Technique: The patient was brought in for a Lexiscan perfusion study on 06/16/2024 and was injected 0.4 mg of Lexiscan intravenously. Within a minute of this injection 40 mCi of sestamibi was given intravenously. Images were obtained using the SPECT gamma camera interlaced with the gating device. Images were obtained in supine position. Resting perfusion study was performed on 06/19/2024. Patient was administered 40 mCi of sestamibi intravenously at rest. Images were then obtained in supine position. Images were processed with the software and compared side to side in short axis, horizontal long axis and vertical long axis views. Total DLP 168mGy-cm. Findings: Raw acquisition reviewed. The stress perfusion study showed diminished tracer uptake in the distal part of inferolateral wall. With CT attenuation correction, there is diminished uptake in the distal part of the inferior wall near the apex and the adjacent apex. The gated study shows normal LV systolic function with calculated LVEF of 60%. LV cavity is normal in size. The gated study shows normal wall thickening and contraction of segments. Resting study shows diminished tracer uptake in the distal part of lateral wall. With CT attenuation correction, there is diminished uptake in the distal part of inferior wall, adjacent apex. Gating at rest reveals normal wall motion with ejection fraction at 65%. The findings are consistent with fixed perfusion defect in the distal part of inferolateral wall, possibly artifactual as there is normal contractility on gating. No clear reversible defects. NM/NM christiane perf SPECT rest & str Impression: 1. Myocardial perfusion imaging study shows no evidence of ischemia. Fixed defect in the distal inferolateral wall- possibly artifactual based on normal wall thickening; less likely small infarct. 2. Gated LVEF is 60% during stress and 65% during rest. 3. Transient ischemic dilatation not present. EKG component of the test reported separately.
--- NOTE | 2024-06-16 07:50 | CA_ITS ---
Acquisition Time: 2024-06-16 07:59:07 Total Exercise Time: 00:02:00 Test Indications: PREOP Medications: SEE H Protocol: LEXISCAN Max HR: 126 BPM 75% of Pred: 166 BPM Max BP: 162/078 mmHG Max Work Load: 1.6 METS Pharmacological stress test with Lexiscan injection while walking slowly on treadmill, without anginal symptoms, without arrhythmais, with normtoesnive response to injection, with nondiagnoisitic EKGs. Nuclear images pending. Test reviewed with Dr. Cohen Referred By: Freeman Huffman Overread By: Leda Aguirre
== END ==
LOC: HO.CARD 07:46
PROVIDERS: Visit Provider Surgery
DX: R94.31 Abnormal electrocardiogram [ECG] [EKG] (principal)
CPT/HCPCS: 78452; 93017; A9500; J0280; J2785

== ENCOUNTER → 2024-06-16 07:50 | Outpatient (BNV) | payer BC, SELFPAY | PROVIDERS: Visit Provider Nurse Practitioner | DX: Z01.810 Encounter for preprocedural cardiovascular examination (principal) | CPT/HCPCS: 78452; 93016; 93018 ==

== ENCOUNTER 2024-06-19 13:41 | Outpatient (AMB) | payer BC, SELFPAY ==
--- NOTE | 2024-06-19 12:58 | A.OFFVIS_ITS ---
VS Expanded 06/19/24 13:07 Height 5 ft 5 in Weight 250 lb 2 oz BMI 41.6 Intake Visit Reasons: TV Pre Op LSG 06/29/24 [employer] Required: No Allergies lisinopril Allergy (Mild, Verified 03/17/24 11:58) Cough oxycodone [From Percocet] Allergy (Mild, Verified 03/17/24 11:58) Hives Medication List - Last Reconciled 06/19/24 by AKILA Mayen amlodipine 10 mg PO DAILY atorvastatin 40 mg PO DAILY bupropion HCl XL 150 mg PO QAM cholecalciferol (vitamin D3) 125 mcg PO DAILY losartan 100 mg PO DAILY sertraline 100 mg PO DAILY thiamine HCl (vitamin B1) 100 mg PO DAILY HPI Comments Details: Patient is a pleasant 53-year-old female presenting for a preop appointment for scheduled sleeve gastrectomy to performed on 06/29/2024. She initially presented to the surgical weight loss program on 03/17/2024 with a weight of 273 lb and a BMI of 45.4. Weight today is 250.2 lb with a BMI of 41.6. She has lost 22.8 lb or 8.3% total body weight loss. She has not been checking her BP wakes at 5am, bed at 9 pm meal plan: premier protein RTD Exercise plan: treadmill at home [facility] Medical History Anxiety Depression Hyperlipidemia Hypertension Obstructive sleep apnea on CPAP Non-insulin dependent type 2 diabetes mellitus Morbid obesity Surgical History Hx of cholecystectomy Hx of appendectomy Hx of hysterectomy Social History Alcohol intake: current Alcohol intake frequency: holidays/special occasions only Alcohol type: wine and other Patient Tobacco Use Status: Never used Tobacco Telehealth Telehealth Telehealth Platform: Telephone Location of provider rendering services: practice address Location of patient: address on file Patient Identification confirmed using: Name, : Yes Telehealth method: voice only Patient verbally consented to treatment: Yes Patient verbally consented to billing insurance company: Yes Patient informed of any privacy concerns related to visit: Yes Minutes spent on Phone/Video with Pt.: 25 Assessment & Plan Assessment & Plan (1) Morbid obesity: Code(s): E66.01 - Morbid (severe) obesity due to excess calories Category: Medical Plan: The patient participated in a structured preoperative lifestyle intervention program supervised by a physician the 3.5 months preceding the surgical p rocedure. The lifestyle intervention included a structured nutritional plan with a specific daily protein intake goal, an exercise plan with a 2000 calorie burn weekly goal, weekly behavior modification guidance and completion of eight 1- hour online nutritional classes and passing successfully the corresponding quizzes. Adherence to preoperative care plan was demonstrated by completing an extensive preoperative work-up. Program participation was demonstrated by completing 6 visits with our medical team and by sharing weekly weight measurements weekly for 3.5 consecutive months via an approved body composition scale. Compliance to the lifestyle intervention was demonstrated by achieving a 22.8 lbs weight-loss or 8.3% total body weight loss (TBWL). No medications were used to achieve this weight loss. In our published experience an over 7% preoperative TBWL, achieved by meeting the diet and exercise goals of our program improves surgical outcomes, reduces the potential for surgical compl ications, and predicts a statistically significant higher weight loss up to 6 years postoperatively. 1. Plan for lap sleeve gastrectomy including upper GI endoscopy . If joe phragmatic or ventral hernias are present at time of surgery, these will be repaired laparoscopically as well. Risks and complications were discussed in detail including possible conversion to an open procedure, anastomotic leak, bleeding requiring transfusion, small bowel obstruction, , DVT and pulmonary embolism, cardiac, or pulmonary complications, as fdc complications such as anastomotic ulcer, insufficient weight loss and vitamin deficiencies. I emphasized the importance of close follow-up, adherence to instructions and good communication. So far she has proven to be an excellent communicator and very compliant with all our directions accomplishing a great weight loss. I believe that she is an excellent candidate and she is ready. 2. Preop prescriptions were provided and explained the purpose of each one. Need to be purchased preop. Start Pantoprazole now as you get it from the pharmacy, 1 pill per day. Sucralfate and Zofran are for after surgery. 3. Bowel prep: please do 7 packets ?of Miralax mixing each one with an 8oz glass of water on 06/27/24 and the same amount on 06/28/24 4. Needs to purchase 1oz medicine cups . 5. Needs to purchase Children's liquid Tylenol for postop pain control. 6. Stop all the vitamins on 06/22/24. Avoid aspirin, motrin, Advil, Aleve, Ibuprofen, Naproxyn. Tylenol is OK. 7. Purchase the Celebrate 4:1 protein shakes from the hospital's gift shop. 8. Will do basic preop blood work-up on 06/21/24 fasting for 12 hours and is scheduled to see the Anesthesiologist prior to the day of surgery. 9. You must do the labs before surgery 10. Importance of adherence to postop follow-up and recommendations was underscored and she understands that. 11. Stop food and bars as of 06/20/24 and continue with 5 premier protein ready to drink shakes (8 oz of the shake) at 6am-8am, 10am-12pm, 1pm-3pm, 4pm-6pm and one more shake with 4 oz of the shake mixed with 4 oz of water or unsweetened almond milk at 7pm-9pm 12. No soups, broths or V8 12a. Use your CPAP daily and bring it to the hospital with your mask 13. Please take at the day of surgery the following medications:?amlodipine and losartan, as per BP guidelines. Blood pressure guidelines: Check your BP in the morning, if below 120/70 do not take anything. 121/71 to 130/80 take only 1/2 of the amlodipine. 131/81 to 140/85 take amlodipine and 1/2 the losartan. Over 141/86 take both amplodipine and losartan. 14. Be sure to continue to send your weight measurements to Dr Huffman weekly, and the most important weight measurement to send him is the day of surgery. 15. Stop any control pills and don't use them for one month after surgery 16. Absolutely no smoking or vaping, or marijuana until the surgery and for at least the first 4 weeks. Only nicotine patches are allowed. 17. The patient's?medical?history has been reviewed and they are considered low risk for post op DVT and therefore DVT prophylaxis is not considered necessary. Travel after surgery was reviewed. The patient has not disclosed any travel plans during the first 30 days after surgery and they have been advised that within the first 30 days after surgery any bus, plane, train or car travel over 2 hours in duration is contraindicated due to the possibility of developing blood clots from immobility. Any travel, needs to include periods of ambulation of 10 minutes in duration every 2 hours.? Patient was instructed to discuss any plans for travel during this period with their bariatric surgeon.? Orders: Orders Prothrombin Time INR Today E66.01 - Morbid (severe) obesity due to excess calories, E78.5 - Hyperlipidemia, unspecified, I10 - Essential (primary) hype rtension, Z01.818 - Encounter for other preprocedural examination Vitamin B1 Today E66.01 - Morbid (severe) obesity due to excess calories, E78.5 - Hyperlipidemia, unspecified, I10 - Essential (primary) hypertension, Z01.818 - Encounter for other preprocedural examination Type and Screen Today E66.01 - Morbid (severe) obesity due to excess calories, E78.5 - Hyperlipidemia, unspecified, I10 - Essential (primary) hypertension, Z01.818 - Encounter for other preprocedural examination Vitamin B12 Today E66.01 - Morbid (severe) obesity due to excess calories, E78.5 - Hyperlipidemia, unspecified, I10 - Essential (primary) hypertension, Z01.818 - Encounter for other preprocedural examination C Reactive Protein Today E66.01 - Morbid (severe) obesity due to excess calories, E78.5 - Hyperlipidemia, unspecified, I10 - Essential (primary) hypertension, Z01.818 - Encounter for other preprocedural examination Partial Thromboplastin Time Today E66.01 - Morbid (severe) obesity due to excess calories, E78.5 - Hyperlipidemia, unspecified, I10 - Essential (primary) hypertension, Z01.818 - Encounter for other preprocedural examination Vitamin D 25-OH Total Today E66.01 - Morbid (severe) obesity due to excess calories, E78.5 - Hyperlipidemia, unspecified, I10 - Essential (primary) hypertension, Z01.818 - Encounter for other preprocedural examination Ferritin Today E66.01 - Morbid (severe) obesity due to excess calories, E78.5 - Hyperlipidemia, unspecified, I10 - Essential (primary) hypertension, Z01.818 - Encounter for other preprocedural examination Zinc Today E66.01 - Morbid (severe) obesity due to excess calories, E78.5 - Hyperlipidemia, unspecified, I10 - Essential (primary) hypertension, Z01.818 - Encounter for other preprocedural examination IRON PROFILE Today E66.01 - Morbid (severe) obesity due to excess calories, E78.5 - Hyperlipidemia, unspecified, I10 - Essential (primary) hypertension, Z01.818 - Encounter for other preprocedural examination Comprehensive Met. Panel Today E66.01 - Morbid (severe) obesity due to excess calories, E78.5 - Hyperlipidemia, unspecified, I10 - Essential (primary) hypertension, Z01.818 - Encounter for other preprocedural examination TSH reflex Free T4 Today E66.01 - Morbid (severe) obesity due to excess calories, E78.5 - Hyperlipidemia, unspecified, I10 - Essential (primary) hypertension, Z01.818 - Encounter for other preprocedural examination Vitamin A Today E66.01 - Morbid (severe) obesity due to excess calories, E78.5 - Hyperlipidemia, unspecified, I10 - Essential (primary) hypertension, Z01.818 - Encounter for other preprocedural examination Hemoglobin A1c Today E66.01 - Morbid (severe) obesity due to excess calories, E78.5 - Hyperlipidemia, unspecified, I10 - Essential (primary) hypertension, Z01.818 - Encounter for other preprocedural examination Lipid Panel Today E66.01 - Morbid (severe) obesity due to excess calories, E78.5 - Hyperlipidemia, unspecified, I10 - Essential (primary) hypertension, Z01.818 - Encounter for other preprocedural examination Complete Blood Count Auto Diff Today E66.01 - Morbid (severe) obesity due to excess calories, E78.5 - Hyperlipidemia, unspecified, I10 - Essential (primary) hypertension, Z01.818 - Encounter for other preprocedural examination Medications: New sucralfate 10 mL PO BID 420 mL 4RF polyethylene glycol 3350 (Miralax) dissolve 1 packet in 8 oz of water, do 7 packets on 06/27/24 and repeat on 06/28/24 17 grams PO DAILY 14 ea 0RF pantoprazole 40 mg PO DAILY 90 tabs 0RF ondansetron HCl 4 mg PO Q6H PRN 14 tabs 0RF nausea and vomiting
[2024-06-19 13:07] VITALS: BMI 41.6
== END 2024-06-19 14:07 | disposition home or self-care (01) ==
LOC: HO.HBS 13:41
PROVIDERS: Visit Provider Physician Assistant Surgical
DX: E66.01 Morbid (severe) obesity due to excess calories (principal)
CPT/HCPCS: 99213

== ENCOUNTER → 2024-06-19 13:41 | Outpatient (BNVA) | payer BC, SELFPAY | PROVIDERS: Visit Provider Physician Assistant Surgical ==

== ENCOUNTER → 2024-06-21 08:58 | Outpatient (BNVA) | payer BC, SELFPAY | PROVIDERS: PCP Family Medicine; Visit Provider Surgery ==

== ENCOUNTER 2024-06-29 08:23 | Inpatient (IN) | payer BC, SELFPAY ==
[2024-06-21 09:57] LABS: MANUAL DIFF FLAG NO
[2024-06-21 10:47] LABS: Basophils Absolute Auto 0.1 X10*3/uL (0.0-0.2); Basophils Percent Auto 0.7 % (0-2); Eosinophils Absolute Auto 0.4 X10*3/uL (0.0-0.4); Eosinophils Percent Auto 5.2 % (0-4); Hematocrit 38.9 % (37.0-47.0); Hemoglobin 12.9 g/dl (12.0-16.0); Imm Gran Abs Auto 0.01 X10*3/uL (0.00-0.03); Imm Gran Pct Auto 0.1 % (0.0-0.4); Lymphocytes Absolute Auto 1.5 X10*3/uL (1.2-4.9); Lymphocytes Percent Auto 22.4 % (20-40); Mean Corpuscular HGB Conc 33.2 g/dl (31.0-35.0); Mean Corpuscular Hemoglobin 31.9 pg (27.0-33.0); Mean Platelet Volume 9.3 fL (9.4-12.3); Monocytes Absolute Auto 0.4 X10*3/uL (0.1-1.2); Monocytes Percent Auto 5.2 % (2-11); Neutrophils Absolute Auto 4.5 x10*3/uL (2.0-8.3); Neutrophils Percent Auto 66.4 % (45-73); Platelet Count 338 X10*3/uL (160-400); Red Blood Count 4.05 X10*6/uL (4.20-5.50); Red Cell Distribution Width 14.2 % (11.0-16.0); White Blood Count 6.9 X10*3/uL (4.8-10.8)
[2024-06-21 10:52] LABS: Prothrombin Time 12.5 SEC (11.1-13.3)
[2024-06-21 10:55] LABS: Partial Thromboplastin Time 32.4 SEC (26.0-36.8)
[2024-06-21 11:02] LABS: Estimated Average Glucose 94 mg/dL; Hemoglobin A1c % 4.9 % (<6.0)
[2024-06-21 11:27] LABS: Alanine Aminotransferase 51 U/L (0-31); Albumin Level 4.2 g/dL (3.5-5.0); Alkaline Phosphatase 86 U/L (39-117); Anion Gap 10 (12-20); Aspartate Amino Transferase 25 U/L (5-31); Bilirubin Total 0.8 mg/dL (0.0-1.0); Blood Urea Nitrogen 15 mg/dL (9-16); C Reactive Protein 0.71 mg/dL (< or = 0.50); Calcium 9.2 mg/dL (8.4-10.2); Carbon Dioxide 27 mmol/L (22-29); Chloride 109 mmol/L (96-108); Cholesterol 108 mg/dL (<200); Estimated Glomerular Filt Rate > 60; Glucose Random 117 mg/dL (60-115); HDL Cholesterol 31 mg/dL (>40); Iron 62 mcg/dL (30-160); LDL Cholesterol Calculated 58 mg/dL (<100); Percent Iron Saturation 24 % (15-50); Potassium 3.9 mmol/L (3.3-5.1); Sodium 142 mmol/L (135-145); Total Iron Binding Capacity 261 mcg/dL (228-428); Total Protein 7.1 g/dL (6.5-8.0); Triglycerides 95 mg/dL (<150); Unsaturated Iron Binding 199 ug/dL
[2024-06-21 11:42] LABS: Vitamin B12 1129 pg/mL (200-900)
[2024-06-21 11:46] LABS: Ferritin 159 ng/mL (10-250); TSH reflex Free T4 0.97 uIU/mL (0.32-4.0); Vitamin D 25-OH Total 45.2 ng/mL (>30)
[2024-06-21 14:04] VITALS: BMI 41.1
[2024-06-24 11:53] LABS: Zinc 69 mcg/dL (60-130)
[2024-06-27 16:23] LABS: Vitamin B1 21 nmol/L (8-30)
[2024-06-28 18:28] LABS: Vitamin A 42 mcg/dL (38-98)
[2024-06-29] VITALS (14 sets, daily range): BP systolic 137–177; BP diastolic 54–92; PULSE 66–84; RESP 12–20; TEMP 36.1–36.8; O2SAT 91–100
--- NOTE | 2024-06-29 08:27 | PHA.MEDREC ---
Pharmacy Consult ? Medication Reconciliation Pharmacy has completed the medication reconciliation. Reviewed med rec done by nursing
[2024-06-29] MEDS: Lactated Ringers 1,000 ML 999 ML IV (09:08)
[2024-06-29] MEDS: Lactated Ringers 1,000 ML 100 ML IVCONT ×2 (09:08→16:04)
[2024-06-29] MEDS: Aprepitant 32 MG/4.4 ML VIAL IVPUSH (09:09)
[2024-06-29 09:56] LABS: Glucose, Whole Blood 95 mg/dL (60-115)
--- NOTE | 2024-06-29 10:34 | MHC.SHP ---
Pre-Procedural Eval Section A - 24 Hr Update-Section A only Date of Service: 06/29/24 The patient is an INPATIENT: Yes The patient has been examined within 24 hours of the surgical procedure. The History & Physical has been completed within 30 days and I have reviewed it.: Yes Section B - Complete if H&P > 30 days Chief Complaint: morbid obesity Relevant Family History (Specify if Yes): No Relevant Social History: None Present Medications: None Medical History: No relevant PMH History of Previous Operations: No relevant previous surgery Allergies: Allergies Allergy/AdvReac Type Severity Reaction Status Date / Time oxycodone [From Percocet] Allergy Mild Hives Verified 06/29/24 08:28 lisinopril AdvReac Mild Cough Verified 06/29/24 08:28 Review of Systems Sugical H&P ROS: Negative: Constitution, Cardiovascular, Respiratory, Neurological, Psychiatric, Hem-Onc, Allergic/Immunologic, Gastrointestinal, Genitourinary, Musculoskeletal, Integumentary, Endocrine and Eyes/Ears/Nose/Throat Exam Surgical H&P Exam: Normal: HEENT, Normal: Heart, Normal: Lungs, Normal: Extremities, Normal: Abdomen, Normal: Skin and Normal: Neurological Plan Diagnosis/Plan: Unchanged I have reviewed the history and physical and performed a pertinent physical examination on my patient. No changes have occurred unless specified. Time Spent With Patient Time: Total time managing care of this patient today ____ minutes.
--- NOTE | 2024-06-29 10:56 | P.BOP_ITS ---
Brief Operative Note Date of Service: 06/29/24 Pre-op diagnosis: Morbid obesity with comorbidities (see below) Post-op diagnosis: same (& abdominal adhesions) Procedure: INITIAL PATIENT BMI ON PRESENTATION AT OUR OFFICE: 45.4 kg/m2 LAST BMI BEFORE SURGERY: 41.7 kg/m2 COMORBIDITIES: sleep apnea on CPAP, non-insulin dependent diabetes, hypertension, hyperlipidemia, depression, anxiety, GERD, LVH ?The patient presented to the Weight Management Program with significant obesity that was negatively impacting the patient's comorbidities as listed above.? The program is a phased program with a special focus on preoperative medical weight management to promote substantial weight loss and prepare the patients for the second phase of the program: bariatric surgery. The patient participated in an intensive weekly lifestyle ?intervention and exercise program during which the patient ?has lost between the initial office visit and the last preoperative visit 37.4 lbs, or 13.7% of initial actual body weight. It was deemed appropriate for the patient to now have bariatric surgery. In light of the current Covid-19 pandemic and the well documented strong association of obesity and increased risk of worse outcomes if infected with Covid-19 (REFERENCES: https://pubmed.ncbi.nlm.nih.gov/34577249/ ,? https://pubmed.ncbi.nlm.nih.gov/71011779/ ), any delay in undergoing bariatric surgery may lead to the patient's worsening health condition and increased?risk of more severe Covid-19 disease if infected. In addition a recent?study from [facility] published in [facility] on 11/03/2021 (file:/ //[email or web address]:/[id number].pdf) found that, among patients with obesity, substantial weight loss achieved with surgery was associated with improved outcomes of COVID-19 infection. The findings suggest that obesity can be a modifiable risk factor for the severity of COVID-19 infection. In addition, the patient met the BMI-criteria for bariatric surgery based on the BMI on initial presentation. The patient should not be penalized for achieving such weight loss because ?it is not sustainable long-term without surgical intervention and it was achieved in preparation for bariatric surgery ?under my direction and based on my published research ([email or web address]).[email or web address] and? https://www.soard.org/article/[email or web address](21)42335-X/pdf ) ?that a 10% preoperative weight loss improves long-term weight loss after surgery and reduces perioperative complications.? Insurance carriers such as [facility] have endorsed my recommendations ?and have included in their policies criteria to include a 10% preoperative weight loss requirement. PROCEDURE: Esophago-gastroscopy, laparoscopic lysis of adhesions, laparoscopic sleeve gastrectomy and laparoscopic gastropexy INDICATIONS: This is a 53 year-old female who was electively scheduled for laparoscopic, possibly open sleeve gastrectomy. The risks and complications of the procedure were discussed with the patient in advance, particularly the possibility of ; pulmonary embolism; staple line leak; bleeding; GERD; cardiac, pulmonary, or renal complications; as well as long-term problems such as insufficient weight loss, vitamin deficiency, strictures, or ulcers. The patient understood all the risks, and was in agreement to proceed with surgery. DESCRIPTION OF PROCEDURE: After informed consent was obtained from the patient, the patient was given preoperative antibiotics, and was transferred to the operating room. After successful induction of general anesthesia, pneumatic compression devices were placed on both lower extremities. An upper endoscopy was performed next. The oropharynx and esophagus appeared to be within normal limits. There was no diaphragmatic hernia present. The stomach was entered. Then after all fluid and air were suctioned and the stomach was fully decompressed, the scope was withdrawn and secured in the mid esophagus. The patient was then prepped and draped in the usual sterile manner, and abdominal access was established at the right upper quadrant with the Chely technique. A 12 mm blunt port was inserted, and the abdomen was insufflated with CO2 to a pressure of 15 mmHg. Under direct visualization, additional ports were placed, specifically two 5 mm Versi-step ports to the left upper quadrant, and a 5 mm Versi-Step port to the right upper quadrant. 1% lidocaine plain was used to infiltrate all port sites as well as all fascia defects. Following that, the patient was placed in a steep reverse Trendelenburg position. An additional 5 mm port was placed to the right flank for the Mediflex retractor that was used to retract the left lobe of the liver. The gastro-esophageal fat pad was opened with the ultrasonic device (Thunderbeat, Olympus) and the anterior esophagus and hiatus were exposed. The angle of His was opened with the ultrasonic device the fundus of the stomach from any diaphragmatic and splenic attachments. I then opened the gastrocolic ligament between the transverse colon and the greater curvature of the stomach with the ultrasonic device to enter the lesser sac and facilitate the ligation of the short gastric vessels. I started at a mid-point along the greater curvature and using the Thunderbeat, all short gastric vessels were divided all the way to the angle of His until the left dmitry was completely dissected at its entirety. I then divided the gastro-colic ligament distally to a distance of about 3-4 cm proximal to the pylorus. There were extensive congenital adhesions between the pancreas and posterior gastric wall. Those were lysed completely with the ultrasonic device. Adhesiolysis took approximately 45 min to complete. The stomach was then divided transversely with two Endo INEZ-45 purple and four INEZ-60 articulating purple loads using the [employer] stapler and loads. Every effort was made that the gastric sleeve had a tubular shape and an even caliber throughout. Once the sleeve resection was completed, the staple line of the gastric sleeve was reinforced with Hemoclips. The resected stomach was retrieved without difficulty from the Chely port. A gastropexy was then performed in order to prevent postoperative GERD and partial gastric volvulus. Several interrupted 2.0 Surgidac sutures were placed between the sleeve's staple line and the previously divided greater omentum and gastro-colic ligament using the Endo-Stitch device. ?An upper endoscopy was performed. There was no narrowing at the GE junction. The scope was easily advanced all the way to the pylorus which was clearly visualized. There was no narrowing anywhere and the sleeve's caliber was even throughout. The sleeve's staple line was inspected and there was no evidence of ischemia, bleeding or dehiscence. At that point the gastroscope was withdrawn from the patient?s mouth while we were decompressing the bowel and the stomach from any remaining air. I looked into the lesser sac to see how the sleeve was situating and it was situating well. There was no bleeding from the staple line, spleen, or short gastric vessels. The Mediflex retractor was removed, and the undersurface of the liver was inspected and there was no bleeding. The patient was placed in supine position. I closed the fascial defect of the 12 mm port site with a figure of eight #1 P olysorb suture. Then 30cc Ropivacaine plain with 10 mg of Dexamethasone were used to infiltrate the fascial closure as well as all skin incisions. At this point, the abdomen was deflated, all ports were removed under direct vision, and no bleeding was noted from any of the port sites. The skin incisions were irrigated with saline and were closed with 4-0 absorbable monofilament sutures. Steri-Strips and OpSites were used to cover all incisions. The patient was extubated and was transferred in stable condition to the recovery room for further care. I was present and performed all maldonado parts of the procedure. Mr Hubbard was the first sampler. There were no residents to assist with this case. Jasvir Huffman MD, PhD, FACS Surgeon: Freeman Huffman MD Anesthesia: GETA, local and other (TAP block) Was an Cyber Policy And Strategy Planner used for this Procedure?: No Cyber Policy And Strategy Planner: Soy Hubbard Estimated blood loss (mL): 10 IV fluids (mL): 2,500 Urine output (mL): 0 (No Blackmon to record output) Pathology: other (Stomach) Condition: stable Disposition: PACU
--- NOTE | 2024-06-29 10:59 | P.PNGS_ITS ---
Subjective Subjective Date of Service: 06/30/24 Interval history: Feels well. Mild incisional pain. She is tolerating phase 1 bariatric diet Physical Exam 2 Vital Signs: Vital Signs: Last Vital Signs Temp 97.0 F 06/29/24 09:40 Pulse 66 06/29/24 09:40 Resp 16 06/29/24 09:40 BP 137/69 06/29/24 09:40 Pulse Ox 96 06/29/24 09:40 O2 Del Method Room Air 06/29/24 09:40 BMI result Body Mass Index 41.1 GI: Inspection: Yes normal to inspection, Yes incision (clean, dry and intact) and Yes obesity Palpation (GI): Soft to palpation Extrem: Right lower extremity: normal to inspection (no calf tenderness) L eft lower extremity: normal to inspection (no calf tenderness) Objective Data Active Medications Lactated Ringer's (Lr) 1,000 mls @ 100 mls/hr IVCONT .Q10H NOAH Last Admin: 06/29/24 09:08 Dose: 100 mls/hr Documented By: DELLA Labs 06/30/24 06:44 06/30/24 06:44 Labs: Laboratory Results - last 24 hr 06/21/24 06/29/24 09:55 09:39 POC Glucose 95 Vitamin A 42 Procedures Date of Service Date of Service: 06/30/24 Progress Note: A&P Assessment and plan (1) Morbid obesity: Status: Acute Assessment and Plan: s/p laparoscopic sleeve gastrectomy, lysis of adhesions and gastropexy Doing well Will check am labs and if OK the patient will be discharged home (2) Non-insulin dependent type 2 diabetes mellitus: Status: Acute (3) Obstructive sleep apnea on CPAP: Status: Acute (4) Hypertension: Status: Acute (5) Hyperlipidemia: Status: Acute (6) Depression: Status: Acute (7) Anxiety: Status: Acute (8) GERD (gastroesophageal reflux disease): Status: Acute (9) LVH (left ventricular hypertrophy): Status: Acute (10) S/P laparoscopic sleeve gastrectomy: Status: Acute (11) Congenital intra-abdominal adhesions: Status: Acute Time Spent With Patient Time: Total time managing care of this patient today ____ minutes. Quality Stroke Does the patient have a stroke diagnosis?: No VTE Prior VTE?: No VTE Risk Level:: Surgical - moderate VTE Device Contraindication: Treatment Not Indicated VTE Drug Contraindication: N/A - Med Ordered
--- NOTE | 2024-06-29 11:12 | P.CONAN_ITS ---
HPI - Anesthesia Eval Consult details Narrative: 53 yo F presenting for sleeve gastrectomy with EGD PMFSH Active Problems Active Problems: All Active Problems LVH (left ventricular hypertrophy) (Acute) GERD (gastroesophageal reflux disease) (Acute) Pre-op evaluation (Acute) Vitamin B1 deficiency (Acute) Abnormal EKG (Acute) Vitamin D deficiency (Acute) Anxiety (Acute) Depression (Acute) Hyperlipidemia (Acute) Hypertension (Acute) Obstructive sleep apnea on CPAP (Acute) Non-insulin dependent type 2 diabetes mellitus (Acute) Morbid obesity (Acute) Past Medical History Medical History (Updated 06/29/24 @ 11:00 by Freeman Huffman MD) Hiatal hernia Anxiety Depression Hyperlipidemia Hypertension Obstructive sleep apnea on CPAP Non-insulin dependent type 2 diabetes mellitus Morbid obesity Family History Family history of problems with anesthesia: No Surgical History Surgical History History of esophagogastroduodenoscopy (EGD) H/O colonoscopy Hx of myomectomy Hx of cholecystectomy Hx of appendectomy Hx of hysterectomy History of Problems with Anesthesia: No Social History Social History Housing Other:: in two family house Are you a primary caretaker grounds to a significant other at home: No Do you presently have visiting nurse or other home services: No Alcohol intake: current Alcohol intake frequency: does not drink Alcohol type: wine and other Patient Tobacco Use Status: Never used Tobacco Use of substances other than those prescribed or required for medical reasons: No Have you been hit, kicked, punched, or otherwise hurt by someone within the past year? If so, by whom?: No Are you DNR?: No Advance Directives: No (brother is primary contact) Advance Directives Information Provided: Yes (as above noted) Advance Directives on File: No Recently lost weight without trying: No Eating poorly because of decreased appetite: No Nutrition Risks: No Nutritional Risk Poor oral hygiene: No Meds Allergies Allergy/AdvReac Type Severity Reaction Status Date / Time oxycodone [From Percocet] Allergy Mild Hives Verified 06/29/24 08:28 lisinopril AdvReac Mild Cough Verified 06/29/24 08:28 Active Medications: Current Medications Lactated Ringer's (Lr) 1,000 mls @ 100 mls/hr IVCONT .Q10H NOAH Last Admin: 06/29/24 09:08 Dose: 100 mls/hr Home Medications ?Medication ?Instructions ?Recorded ?Confirmed ?Last Taken ?Type amlodipine 10 mg tablet 10 mg PO QAM 02/22/24 06/29/24 06/29/24 History atorvastatin 40 mg tablet 40 mg PO QAM 02/22/24 06/29/24 06/28/24 History losartan 100 mg tablet 100 mg PO DAILY 02/22/24 06/29/24 06/27/24 History sertraline 100 mg tablet 100 mg PO QAM 02/22/24 06/29/24 06/28/24 History bupropion HCl 150 mg 24 hr tablet, 150 mg PO QAM 03/17/24 06/29/24 06/28/24 History extended release cholecalciferol (vitamin D3) 125 125 mcg PO QAM 06/21/24 06/29/24 06/21/24 History mcg (5,000 unit) capsule pantoprazole 40 mg tablet,delayed 40 mg PO QAM 06/21/24 06/29/24 06/28/24 History release thiamine HCl (vitamin B1) 100 mg 100 mg PO QAM 06/21/24 06/29/24 06/21/24 History tablet Exam Exam Date and Time: June 29, 2024 1000 Height,Weight and Vital Signs: Height 5 ft 5 in Weight 112.037 kg Last Vital Signs Temp 97.0 F 06/29/24 09:40 Pulse 66 06/29/24 09:40 Resp 16 06/29/24 09:40 BP 137/69 06/29/24 09:40 Pulse Ox 96 06/29/24 09:40 O2 Del Method Room Air 06/29/24 09:40 Pertinent Lab Results Pertinent Lab Results: Laboratory Tests 06/21/24 06/21/24 06/29/24 09:39 09:55 09:39 WBC 6.9 RBC 4.05 L Hgb 12.9 Hct 38.9 MCV 96.0 MCH 31.9 MCHC 33.2 RDW 14.2 Plt Count 338 MPV 9.3 L Immature Gran % (Auto) 0.1 Neut % (Auto) 66.4 Lymph % (Auto) 22.4 [place] % (Auto) 5.2 Eos % (Auto) 5.2 H Baso % (Auto) 0.7 Lymph # (Auto) 1.5 [place] # (Auto) 0.4 Eos # (Auto) 0.4 Baso # (Auto) 0.1 Abs Immat Gran (auto) 0.01 Absolute Neuts (auto) 4.5 Absolute Nucleated RBC 0.000 Nucleated RBC % (auto) 0.0 PT 12.5 INR 1.0 APTT 32.4 Sodium 142 Potassium 3.9 Chloride 109 H Carbon Dioxide 27 Anion Gap 10 L BUN 15 Creatinine 0.67 Estim Creat Clear Calc TNP Estimated GFR > 60 POC Glucose 95 Random Glucose 117 H Estimat Average Glucose 94 Hemoglobin A1c % 4.9 Calcium 9.2 Iron 62 TIBC 261 % Saturation 24 Unsat Iron Binding 199 Ferritin 159 Total Bilirubin 0.8 AST 25 ALT 51 H Alkaline Phosphatase 86 C-Reactive Protein 0.71 H Total Protein 7.1 Albumin 4.2 Triglycerides 95 Cholesterol 108 LDL Cholesterol, Calc 58 HDL Cholesterol 31 L Vitamin A 42 Vitamin B1 21 Vitamin B12 1129 H 25-OH Vitamin D Total 45.2 TSH 0.97 Zinc 69 Blood Type B Positive Antibody Screen NEGATIVE Airway Mallampati Class: II TM Dist: >3cm Neck ROM: Full Loose/Missing/Broken Teeth: No (patient denies any loose or broken teeth) Heart: S1S2 Lungs: CTAB Assessment and Plan Assessment Anesthesia Assessment: Anesthesia Plan Discussed and Chart Reviewed Final Anesthetic Review Family History of Problems with Anesthesia: No History of Problems with Anesthesia: No NPO: Yes ASA Class: III Final Preanesthetic Review: No Changes in Pt Med Stat, Meds/Allgs Chart Reviewed, Consent Obtained/Reviewed and Anes Risks/Benef Reviewed Patient Risk: Intermediate Procedure Risk: Intermediate Anesthetic Plan Anesthetic Plan: GA and Agree w/ Assess. and Plan Disposition: Standard PACU
--- NOTE | 2024-06-29 13:40 | PM.DS ---
DS: Providers Provider Date of Service: 06/30/24 Date of admission: 06/29/24 08:23 Primary care physician: Unknown Physician DS: Diagnosis Discharge Diagnosis (1) Morbid obesity: Status: Acute (2) Non-insulin dependent type 2 diabetes mellitus: Status: Acute (3) Obstructive sleep apnea on CPAP: Status: Acute (4) Hypertension: Status: Acute (5) Hyperlipidemia: Status: Acute (6) Depression: Status: Acute (7) Anxiety: Status: Acute (8) GERD (gastroesophageal reflux disease): Status: Acute (9) LVH (left ventricular hypertrophy): Status: Acute DS: Summary Hospital Course Hospital Course: ADMITTING DIAGNOSIS: morbid obesity, htn, hld, melia, anxiety, depression ? DISCHARGE DIAGNOSIS: same, s/p laparoscopic sleeve gastrectomy ? PAST SURGICAL HISTORY: cholecystectomy, appendectomy, hysterectomy, myomectomy ? PROCEDURE: upper endoscopy, laparoscopic sleeve gastrectomy ? DISCHARGE SUMMARY: ? History of Present Illness: ? The patient is a?53 year-old woman with a BMI of?45.4 kg/m2 and associated co-morbidities as described above. The patient had extensive work-up,lost?22.8 lbs preoperatively and was electively scheduled for laparoscopic, possible open sleeve gastrectomy and gastropexy. Risks and complications of the surgery were discussed with the patient in advance, particularly the possibility of , pulmonary embolism, anastomotic leak, bleeding, bowel injury, GERD, cardiac, renal or pulmonary complications. The patient understood all the risks and was in agreement with the surgical plan. ? Hospital Course: ? The patient underwent an uneventful laparoscopic sleeve gastrectomy with gastropexy on the day of admission. Postoperatively, the patient was transferred to the surgical floor. The patient received IV Acetaminophen and IV dilaudid for pain control. Patient was started on bariatric phase 1 diet POD #0. On postoperative day one, the patient was feeling well without nausea, vomiting, fevers, or tachycardia. The patient had some mild incisional pain and the abdomen was soft. ? On the morning of postoperative day one, the patient was continued on 1 ounce of water or ice every half hour. During the day, the patient did fairly well, having some incisional pain, but able to ambulate adequately and to tolerate liquids well. ? Since the patient is doing well, we decided that the patient was ready to be discharged. The patient was given instructions to follow-up with me next week and to call my office for any fever over 101, persistent abdominal pain, nausea, vomiting, GERD, symptoms of DVT such as calf tenderness, or leg swelling, or pulmonary embolism such as chest pain or shortness of breath. The patient was also instructed to drink 40-60 ounces of liquids per day using the 1-ounce cups. The patient had been given prescriptions for Tylenol for pain, Zofran prn for nausea, and pantoprazole and carafate previously. The patient was encouraged to ambulate and use the incentive spirometer. The patient was allowed to shower, but no baths, and encouraged to stay active at home. All of these instructions were given to the patient personally. All questions were answered and the patient understood all instructions, the instructions were also given to the patient in print. Time Attestation Total time managing care of this patient today: 25 mintues. Discharge Coordination Time (in mins): 25 Quality: Safe Use of Opioids Does Pt have an Active Cancer Diagnosis on the Problem List?: No Quality: Stroke Does the patient have a stroke diagnosis?: No Physical Exam Vital Signs: Vital Signs: Last Vital Signs Temp 97.0 F 06/29/24 09:40 Pulse 66 06/29/24 09:40 Resp 16 06/29/24 09:40 BP 137/69 06/29/24 09:40 Pulse Ox 96 06/29/24 09:40 O2 Del Method Room Air 06/29/24 09:40 BMI result Body Mass Index 41.1 DS: Data Data Completed and Pending Pending studies at discharge: Pending at discharge 06/29/24 13:09 Surgical [PTH] Routine Labs on day of discharge: Laboratory Results - last 24 hr 06/21/24 06/29/24 09:55 09:39 POC Glucose 95 Vitamin A 42 Discharge Plan Discharge Anticipated Discharge Date/Time: 06/30/24 10:00 Patient Disposition: Home, Self-Care Discharge Diagnosis: s/p laparoscopic sleeve gastrectomy Referrals: Physician,Unknown J [Physician] - 1 Week Discharge Medications: Continued pantoprazole 40 mg tablet,delayed release (DR/EC) 40 mg PO QAM sertraline 100 mg tablet 100 mg PO QAM atorvastatin 40 mg tablet 40 mg PO QAM bupropion HCl 150 mg tablet extended release 24 hr 150 mg PO QAM Held amlodipine 10 mg tablet 10 mg PO QAM Hold Instructions: Resume on 07/01/24. Check your blood pressure every morning as soon as you wake up and send it to Dr. Huffman. Do no take the blood pressure medication if the blood pressure is below 120/70. Wait every day to hear back from Dr. Huffman before you take the medication. Patient Comments: 11/09 dose = 5mg per Dr Mahoney losartan 100 mg tablet 100 mg PO DAILY Hold Instructions: Resume on 07/01/24. Check your blood pressure every morning as soon as you wake up and send it to Dr. Huffman. Do no take the blood pressure medication if the blood pressure is below 120/70. Wait every day to hear back from Dr. Huffman before you take the medication. Discontinued thiamine HCl (vitamin B1) 100 mg tablet 100 mg PO QAM cholecalciferol (vitamin D3) 125 mcg (5,000 unit) capsule 125 mcg PO QAM Discharge Orders: Discharge Order (Routine); Ordered 06/30/24 Ordered By: Freeman Huffman Activity on Discharge: No heavy lifting Stand Alone Forms: Patient Portal Discharge page Print Language: Lithuanian Care Plan Goals: weight loss Health Concerns: morbid obesity Plan of Treatment: No tub baths, sex or returning to work until discussed at first post op appointment. No exercise, alcohol, tobacco or illegal drug use. Continue to use incentive spirometer hourly while awake. Walk in home for 5- 10 minutes every 2 hours during the first week. Follow all instructions in the bariatric handbook and call with any questions.Discharge Instructions 1. Please call your doctor or come back to the emergency room should any new symptoms arise. 2. You will receive a courtesy call from [facility] 24-48 hours after discharge. 3. Activity: abstain from alcohol, practice limited stair climbing, no bending, no driving, no exercise, no illicit substances, no lifting, no sex, no tub bath, no work. 4. Diet: continue as discussed with Dr. Huffman. 5. Dressing Change/Wound Care: Your incision is covered by clear bandages and guaze underneath. If the area is tender, you may apply an ice pack for short intervals (no more than 20 minutes on, followed by at least 20 minutes off). Do not apply heat. Do not use creams, lotions, or topical antibiotics unless instructed to do so by your surgeon. These can cause infection or allergic reaction. 6. Call your doctor if: - Your temperature exceeds 101.5 F - You experience excessive pain or swelling - You have an unexpected reaction to medication - You have excessive bleeding - You experience continued vomiting/nausea - Your incision begins to separate - Your incision shows signs of infection such as increased redness, swelling, excessive pain, heat, or drainage (light blood or clear fluid is normal) 7. General instructions: No lifting greater than 5 lbs for 1 week and not more than 20lbs the next 3?weeks. No driving until seen at the office in 5-7 days after surgery. If you do not move your bowels in the next 2 days, please tell?Dr. Huffman. Please walk around your home every hour or two to prevent blood clots from forming in your legs. You do not need to wake from sleeping to walk. Please sleep in a bed or couch to prevent kinking at the hips and knees. Please take your incentive spirometer (your lung research chemist) home with you and use it for the next few days to prevent pneumonia. You may shower, no hot tubs, baths or swimming pools.?Please follow the post op diet instructions you are?given by Dr Huffman? and text me daily at 5-6pm for an update.?If you have any issues or concerns or questions please communicate this to him via text.? The Celebrate shakes have all of the bariatric vitamins you need if you consume these shakes. If you are drinking other protein shakes, you will need to purchase the Celebrate multivitamins and calcium that are available in the hospital gift shop on the first floor of the [facility].??Do not take anything without first discussing with Dr Huffman. Please make sure you are consuming at least 40 ounces of fluids per day starting the?day AFTER your discharge from the hospital. Always drink 1-2 ml per minute using the 5ml?syringe. If you drink faster you may experience?bloating,?gas pain, burping, nausea or heartburn. In that case please slow down your pace and use the syringe to?understand better the?proper?pace and volume of drinking. Do not hesitate to contact the office with any questions at . The patient's medical history has been reviewed and they are considered low risk for post op DVT and therefore DVT prophylaxis is not considered necessary. Travel after surgery was reviewed. The patient has not disclosed any travel plans during the first 30 days after surgery and they have been advised that within the first 30 days after surgery any bus, plane, train or car travel over 2 hours in duration is contraindicated due to the possibility of developing blood clots from immobility. Any travel, needs to include periods of ambulation of 10 minutes in duration every 2 hours.? The patient was instructed to discuss any plans for travel during this period with their bariatric surgeon. Assessment: stable s/p laparoscopic sleeve gastrectomy Patient Instructions: Laparoscopic Sleeve Gastrectomy (DC) Discharge Date/Time: 06/30/24 10:48
[2024-06-29] MEDS: Haloperidol Lactate 5 MG/ML VIAL 1 MG IVPUSH (13:43)
[2024-06-29] MEDS: HYDROmorphone HCl 0.5 MG/0.5 ML SYRINGE IVPUSH ×2 (13:51→14:11)
[2024-06-29 14:38] LABS: Hematocrit 38.7 % (37.0-47.0)
[2024-06-29] MEDS: ceFAZolin Sodium/Dextrose,Iso 2 GM/50 ML PIGGYBACK IV (16:42)
[2024-06-29] MEDS: Acetaminophen 1,000 MG/100 ML PIGGYBACK 16.7 MG IV ×2 (17:23→22:13)
[2024-06-29 18:45] LABS: Anion Gap 16 (12-20); Blood Urea Nitrogen 10 mg/dL (9-16); Calcium 9.3 mg/dL (8.4-10.2); Carbon Dioxide 21 mmol/L (22-29); Chloride 106 mmol/L (96-108); Creatinine Clr Calc Pharmacy 108.4; Estimated Glomerular Filt Rate > 60; Glucose Random 161 mg/dL (60-115); Potassium 4.2 mmol/L (3.3-5.1); Sodium 139 mmol/L (135-145)
[2024-06-29] MEDS: Famotidine/PF 20 MG/2 ML VIAL IVPUSH (21:00)
[2024-06-30] MEDS: Lactated Ringers 1,000 ML 100 ML IVCONT (01:56)
[2024-06-30 03:15] VITALS: BP 140/70; PULSE 67; RESP 18; TEMP 36.1; O2SAT 96
[2024-06-30] MEDS: Acetaminophen 1,000 MG/100 ML PIGGYBACK 16.7 MG IV (04:17)
[2024-06-30 06:48] LABS: MANUAL DIFF FLAG NO
[2024-06-30 06:50] LABS: Basophils Percent Auto 0.2 % (0-2); Hematocrit 37.8 % (37.0-47.0); Hemoglobin 13.1 g/dl (12.0-16.0); Imm Gran Abs Auto 0.06 X10*3/uL (0.00-0.03); Imm Gran Pct Auto 0.5 % (0.0-0.4); Lymphocytes Absolute Auto 1.4 X10*3/uL (1.2-4.9); Lymphocytes Percent Auto 10.7 % (20-40); Mean Corpuscular HGB Conc 34.7 g/dl (31.0-35.0); Mean Corpuscular Hemoglobin 32.5 pg (27.0-33.0); Mean Corpuscular Volume 93.8 fL (80.0-98.0); Mean Platelet Volume 9.4 fL (9.4-12.3); Monocytes Absolute Auto 0.8 X10*3/uL (0.1-1.2); Monocytes Percent Auto 5.8 % (2-11); Neutrophils Absolute Auto 10.6 x10*3/uL (2.0-8.3); Neutrophils Percent Auto 82.8 % (45-73); Platelet Count 348 X10*3/uL (160-400); Red Blood Count 4.03 X10*6/uL (4.20-5.50); Red Cell Distribution Width 13.7 % (11.0-16.0); White Blood Count 12.8 X10*3/uL (4.8-10.8)
[2024-06-30 07:04] VITALS: BP 143/80; PULSE 65; RESP 18; TEMP 36.7; O2SAT 98
[2024-06-30 07:05] LABS: Anion Gap 12 (12-20); Blood Urea Nitrogen 10 mg/dL (9-16); Calcium 9.6 mg/dL (8.4-10.2); Carbon Dioxide 24 mmol/L (22-29); Chloride 107 mmol/L (96-108); Creatinine Clr Calc Pharmacy 127.3; Estimated Glomerular Filt Rate > 60; Glucose Random 99 mg/dL (60-115); Potassium 4.3 mmol/L (3.3-5.1); Sodium 139 mmol/L (135-145)
[2024-06-30] MEDS: Famotidine/PF 20 MG/2 ML VIAL IVPUSH (07:05)
[2024-06-30] MEDS: 0.9 % Sodium Chloride Flush 3 ML SYRINGE IVFLUSH (07:06)
[2024-06-30] MEDS: buPROPion HCl XL 150 MG TAB.ER.24H PO (07:09)
[2024-06-30] MEDS: Losartan Potassium 50 MG TABLET 100 MG PO (07:09)
[2024-06-30] MEDS: amLODIPine Besylate 10 MG TABLET PO (07:09)
[2024-06-30 07:14] VITALS: O2SAT 98
--- NOTE | 2024-06-30 08:27 | HO.POSTANES ---
Post Anesthesia Evaluation Post Anesthesia Evaluation Date of Service: 06/30/24 Vital Signs: Vital Signs Temp Pulse Resp BP Pulse Ox O2 Del Method 06/30/24 07:14 98 Room Air 06/30/24 07:04 98.1 F 65 18 143/80 H 98 Room Air 06/30/24 03:15 97 F 67 18 140/70 H 96 Room Air Anesthesia: General LMA Mental Status: Awake Pain Control: Satisfactory Nausea/Vomiting: None Hydration: Adequate Anesthesia-Related Issues: No Anes. Related Issues
--- NOTE | 2024-06-30 09:46 | MHC.CM.PN ---
Patient lives in a duplex, w/ a close friend next door. Functionally independent. Has CPAP, buys supplies online. PCP Kristina WIBLURN Reports she has an HCP w/ brother Kevyn listed as HCA. Copy requested. DP: Medically cleared for dc home self care. Friend to transport. RN aware.
== END 2024-06-30 10:48 | disposition home or self-care (01) | DRG 403 ==
LOC: HO.SSSA 13:45 → HO.S3 15:02
PROVIDERS: Physician Assistant Surgical; Admitting Provider Surgery; PCP Physician Assistant Medical; Visit Provider Surgery
PROC: 0DB64Z3 Excision of Stomach, Percutaneous Endoscopic Approach, Vertical (ICD-10-PCS; CPT 43845; principal; 2024-06-29 10:30)
DX: E66.01 Morbid (severe) obesity due to excess calories (principal); I11.9 Hypertensive heart disease without heart failure; Q43.3 Congenital malformations of intestinal fixation; E78.5 Hyperlipidemia, unspecified; G47.33 Obstructive sleep apnea (adult) (pediatric); F32.A Depression, unspecified; F41.9 Anxiety disorder, unspecified; K21.9 Gastro-esophageal reflux disease without esophagitis; Z68.41 Body mass index [BMI] 40.0-44.9, adult; Z79.899 Other long term (current) drug therapy
CPT/HCPCS: 36415; 80048; 80053; 80061; 82306; 82607; 82728; 82947; 83036; 83540; 84425; 84443; 84590; 84630; 85014; 85018; 85025; 85610; 85730; 86140; 86850; 86900; 86901; 88304; 88305; 88307; 88342; A4649; C9145; J0131; J0690; J1100; J1170; J1630; J2250; J2405; J2704; J2795; J3010; J7120

== ENCOUNTER → 2024-06-29 08:23 | Outpatient (BNV) | payer BC, SELFPAY | PROVIDERS: Admitting Provider Surgery; Visit Provider Surgery | DX: E66.01 Morbid (severe) obesity due to excess calories (principal); Z68.41 Body mass index [BMI] 40.0-44.9, adult; Z90.3 Acquired absence of stomach [part of]; Z98.84 Bariatric surgery status | CPT/HCPCS: 43659; 43775; 99024 ==

== ENCOUNTER 2024-07-06 10:03 | Outpatient (AMB) | payer BC, SELFPAY ==
--- NOTE | 2024-07-06 10:28 | MHC.OFFVISWM ---
VS Expanded 07/06/24 10:36 BP 122/80 Blood Pressure Location Rt brachial Blood Pressure Position Sitting Pulse 74 Pulse Source Pulse Oximeter Temp 96.5 F L Temperature Source Temporal Artery Scan Pulse Oximetry 95 Oxygen Delivery Method Room Air Height 5 ft 5 in Weight 231 lb 3.2 oz BMI 38.5 Body Fat % 44.6 Body Fat Mass 103.0 Fat Free Mass 128.0 Visceral Fat Rating 13.0 Body Water % 39.4 Body Water Mass 91.0 Muscle Mass/Score 121.6 Basal Metabolic Rate/Score 1,788 Intake Visit Reasons: (OV) PO LSG 06/29/24 Allergies oxycodone [From Percocet] Allergy (Mild, Verified 07/06/24 10:40) Hives lisinopril Adverse Reaction (Mild, Verified 07/06/24 10:40) Cough HPI Comments Details: 53-year-old female returns to the office today in follow-up. She is status post laparoscopic sleeve gastrectomy performed on 06/29/2024. She reports tolerating 3 celebrate 4 in 1 shakes with 1 scoop each and approximately 50 oz of fluid daily. She has moved her bowels. Denies any significant pain. [facility] Medical History (Updated 06/29/24 @ 18:38 by Freeman Huffman MD) Hiatal hernia Anxiety Depression Hyperlipidemia Hypertension Obstructive sleep apnea on CPAP Non-insulin dependent type 2 diabetes mellitus Morbid obesity Surgical History (Updated 07/06/24 @ 10:40 by Ramona Cartagena CMA) Hx of laparoscopic partial gastrectomy History of esophagogastroduodenoscopy (EGD) H/O colonoscopy Hx of myomectomy Hx of cholecystectomy Hx of appendectomy Hx of hysterectomy Social History Household Members: None Housing: House Housing Other:: in two family house Are you a primary managed care analyst to a significant other at home: No Do you presently have visiting nurse or other home services: No Alcohol intake: current Alcohol intake frequency: does not drink Alcohol type: wine and other Patient Tobacco Use Status: Never used Tobacco service: No Physical Exam Vital Signs: Last Vital Signs Temp 96.5 F L 07/06/24 10:36 Pulse 74 07/06/24 10:36 BP 122/80 07/06/24 10:36 Pulse Ox 95 07/06/24 10:36 Oxygen Delivery Method Room Air 07/06/24 10:36 BMI result Body Mass Index 38.5 GI Inspection: Yes incision (Clean, dry, intact.) Assessment & Plan Assessment & Plan (1) S/P laparoscopic sleeve gastrectomy: Code(s): Z98.84 - Bariatric surgery status Category: Surgical Plan: POD 7 s/p LSG on 06/29/[address] Huffman Weight loss prior to surgery was 22.8 pounds or 8.3 % TBWL. Original weight on 03/17/2024 was 273 pounds and op weight was 250.2 pounds. Be sure to text Dr Huffman exactly 1 week after surgery your weight from your home scale so he can adjust your meal plan. Continue meal plan until f/u w Doris in 2 weeks May shower, no submersion in bath for another week Continue abdominal binder with activity and exercise for the next 2 weeks. Exercise prior to surgery was treadmill and may resume No abdominal exercises for 6 weeks post operatively Will be emailed link to post op video for review Reminded of the pace of drinking, 2 mL per minute, 1 oz/15 min. Of note, she continues taking full dose Norvasc although no longer taking losartan. Following blood pressure parameters as outlined by Dr. Huffman.
[2024-07-06 10:36] VITALS: BP 122/80; PULSE 74; TEMP 35.8; O2SAT 95; BMI 38.5
== END 2024-07-06 12:08 | disposition home or self-care (01) ==
PROVIDERS: PCP Family Medicine; Visit Provider Physician Assistant Surgical
DX: Z98.84 Bariatric surgery status (principal)
CPT/HCPCS: 99024

== ENCOUNTER → 2024-07-06 10:03 | Outpatient (BNVA) | payer BC, SELFPAY | PROVIDERS: PCP Family Medicine; Visit Provider Physician Assistant Surgical ==

== ENCOUNTER 2024-07-24 11:24 | Outpatient (AMB) | payer BC, SELFPAY ==
--- NOTE | 2024-07-24 11:06 | A.OFFVIS_ITS ---
VS Expanded 07/24/24 11:20 Height 5 ft 5 in Weight 224 lb 2 oz BMI 37.3 Intake Visit Reasons: (TV) PO LSG 06/29/24 Allergies oxycodone [From Percocet] Allergy (Mild, Verified 07/06/24 10:40) Hives lisinopril Adverse Reaction (Mild, Verified 07/06/24 10:40) Cough Medication List - Last Reconciled 07/24/24 by AKILA Griffiths amlodipine 10 mg PO QAM atorvastatin 40 mg PO QAM bupropion HCl XL 150 mg PO QAM losartan 100 mg PO DAILY pantoprazole 40 mg PO QAM sertraline 100 mg PO QAM HPI Comments Details: This?is a?53?yo female who is s/p LSG 06/29/2024. Presents for 4 week post op visit. Weight at last visit on 07/06/2024 was 231.2 pounds with a BMI of 38.5, weight today is 224.2 pounds, representing a 7 pound weight loss with a BMI today of 37.3.? No complaints of nausea, emesis, abdominal pain or reflux, or constipation. Had an episode of pain in R shoulder lasting for a few days, took a muscle relaxant which helped, had done some increased activity prior. No fevers, no pain while eating. Checking BP, dosing based on parameters, has not needed. Present meal plan includes: Celebrate 1 scoop 8-10am, 11am-1pm 4oz Premier in 4oz UAM 2-4pm Built bar 5-8pm not taking MVI Exercise routine includes: walking outside [facility] Medical History (Updated 07/24/24 @ 11:27 by AKILA Griffiths) Pre-op evaluation Hiatal hernia Anxiety Depression Hyperlipidemia Hypertension Obstructive sleep apnea on CPAP Non-insulin dependent type 2 diabetes mellitus Morbid obesity Surgical History (Updated 07/08/24 @ 00:01 by Danis Bhat) Hx of laparoscopic partial gastrectomy History of esophagogastroduodenoscopy (EGD) H/O colonoscopy Hx of myomectomy Hx of cholecystectomy Hx of appendectomy Hx of hysterectomy Social History Household Members: None Housing: House Housing Other:: in two family house Are you a primary child care assistant to a significant other at home: No Do you presently have visiting nurse or other home services: No Alcohol intake: current Alcohol intake frequency: does not drink Alcohol type: wine and other Patient Tobacco Use Status: Never used Tobacco service: No Telehealth Telehealth Telehealth Platform: Telephone Location of provider rendering services: practice address Location of patient: address on file Patient Identification confirmed using: Name, : Yes Telehealth method: voice only Patient verbally consented to treatment: Yes Patient verbally consented to billing insurance company: Yes Patient informed of any privacy concerns related to visit: Yes Minutes spent on Phone/Video with Pt.: 15 Assessment & Plan Assessment & Plan (1) S/P laparoscopic sleeve gastrectomy: Code(s): Z98.84 - Bariatric surgery status Category: Surgical (2) Obesity: Code(s): E66.9 - Obesity, unspecified Category: Medical Plan Continue to text Dr. Wright weekly with measurements. Can try Tylenol for shoulder pain, muscle relaxants ok, avoid NSAIDs. Pt will let us know if pain worsens. Discussed lifting restriction. RTC 1 month. I spent a total of 30 minutes reviewing/updating records, examining the patient and counseling the patient on weight management as detailed above.
[2024-07-24 11:20] VITALS: BMI 37.3
== END 2024-07-24 11:36 | disposition home or self-care (01) ==
LOC: HO.HBS 11:24
PROVIDERS: PCP Family Medicine; Visit Provider Physician Assistant Surgical
DX: E66.9 Obesity, unspecified (principal); Z68.37 Body mass index [BMI] 37.0-37.9, adult; Z90.3 Acquired absence of stomach [part of]; Z98.84 Bariatric surgery status
CPT/HCPCS: 99024

== ENCOUNTER → 2024-07-24 11:24 | Outpatient (BNVA) | payer BC, SELFPAY | PROVIDERS: PCP Family Medicine; Visit Provider Physician Assistant Surgical ==

== ENCOUNTER 2024-08-30 13:16 | Outpatient (AMB) | payer BC, SELFPAY ==
--- NOTE | 2024-08-30 13:02 | MHC.OFFVISWM ---
VS Expanded 08/30/24 13:05 Height 5 ft 5 in Weight 212 lb BMI 35.3 Intake Visit Reasons: TELEPHONE PO LSG 06/29/24 Allergies oxycodone [From Percocet] Allergy (Mild, Verified 07/06/24 10:40) Hives lisinopril Adverse Reaction (Mild, Verified 07/06/24 10:40) Cough Medication List - Last Reconciled 08/30/24 by AKILA Griffiths amlodipine 10 mg PO QAM atorvastatin 40 mg PO QAM bupropion HCl XL 150 mg PO QAM losartan 100 mg PO DAILY pantoprazole 40 mg PO QAM sertraline 100 mg PO QAM HPI Comments Details: This?is a?54?yo female who is s/p LSG 06/29/2024. Presents for 2 month post op visit. Weight at last visit on 07/24/2024 was 224.2 pounds with a BMI of 37.3, weight today is 212 pounds, representing a 12.2 pound weight loss with a BMI today of 35.3.? No complaints of nausea, emesis, abdominal pain or reflux, or constipation. Pt's mother 10 days ago. She reports emotional eating. Saw PCP yesterday, BP was high at that visit- 146/86 at office. At home was well controlled. Restarted BP meds for the next week and will monitor daily. Present meal plan includes: 4oz Premier in 4oz UAM x3 Built bar 3 forkfuls of chicken, 3 forkfuls zachary/cauli started MVI Exercise routine includes: walking outside [facility] Medical History (Updated 07/24/24 @ 11:27 by AKILA Griffiths) Pre-op evaluation Hiatal hernia Anxiety Depression Hyperlipidemia Hypertension Obstructive sleep apnea on CPAP Non-insulin dependent type 2 diabetes mellitus Morbid obesity Surgical History (Updated 07/08/24 @ 00:01 by Danis Bhat) Hx of laparoscopic partial gastrectomy History of esophagogastroduodenoscopy (EGD) H/O colonoscopy Hx of myomectomy Hx of cholecystectomy Hx of appendectomy Hx of hysterectomy Social History Household Members: None Housing: House Housing Other:: in two family house Are you a primary manager home healthcare to a significant other at home: No Do you presently have visiting nurse or other home services: No Alcohol intake: current Alcohol intake frequency: does not drink Alcohol type: wine and other Patient Tobacco Use Status: Never used Tobacco service: No Telehealth Telehealth Telehealth Platform: Telephone Location of provider rendering services: other Location of patient: address on file Patient Identification confirmed using: Name, : Yes Telehealth method: voice only Patient verbally consented to treatment: Yes Patient verbally consented to billing insurance company: Yes Patient informed of any privacy concerns related to visit: Yes Minutes spent on Phone/Video with Pt.: 16 Assessment & Plan Assessment & Plan (1) Obesity: Code(s): E66.9 - Obesity, unspecified Category: Medical (2) S/P laparoscopic sleeve gastrectomy: Code(s): Z98.84 - Bariatric surgery status Category: Surgical Plan Pt to continue to text Dr Wright weekly and follow meal plan. No activity restrictions. Complete 90 day course of PPI. Continue to monitor BP at home and dose meds accordingly. RTC 1 month for telephone visit. I spent a total of 30 minutes reviewing/updating records, examining the patient and counseling the patient on weight management as detailed above.
[2024-08-30 13:05] VITALS: BMI 35.3
== END 2024-08-30 13:26 | disposition home or self-care (01) ==
LOC: HO.HBS 13:16
PROVIDERS: PCP Family Medicine; Visit Provider Physician Assistant Surgical
DX: E66.9 Obesity, unspecified (principal); Z68.35 Body mass index [BMI] 35.0-35.9, adult; Z98.84 Bariatric surgery status
CPT/HCPCS: 99024

== ENCOUNTER → 2024-08-30 13:16 | Outpatient (BNVA) | payer BC, SELFPAY | PROVIDERS: PCP Family Medicine; Visit Provider Physician Assistant Surgical ==

== ENCOUNTER 2024-10-02 12:05 | Outpatient (AMB) | payer BC, SELFPAY ==
[2024-10-02 11:58] VITALS: BMI 34.1
--- NOTE | 2024-10-02 11:58 | A.OFFVIS_ITS ---
VS Expanded 10/02/24 11:58 Height 5 ft 5 in Weight 205 lb BMI 34.1 Intake Visit Reasons: TELEPHONE PO LSG 06/29/24 Allergies oxycodone [From Percocet] Allergy (Mild, Verified 07/06/24 10:40) Hives lisinopril Adverse Reaction (Mild, Verified 07/06/24 10:40) Cough Medication List - Last Reconciled 10/02/24 by AKILA Griffiths amlodipine 10 mg PO QAM atorvastatin 40 mg PO QAM bupropion HCl XL 150 mg PO QAM losartan 100 mg PO DAILY pantoprazole 40 mg PO QAM sertraline 150 mg PO QAM HPI Comments Details: This?is a?54?yo female who is s/p LSG 06/29/2024. Presents for 3 month post op visit. Weight loss of 7lbs.? No complaints of nausea, emesis, abdominal pain or reflux, or constipation. Had another family member pass away this past Wednesday, after her mother passed last month. Her sertraline dose increased. BP has been high; was started on low dose of losartan by PCP. Not taking amlodipine. Present meal plan includes: 4oz Premier in 4oz UAM x3 Built bar 3 forkfuls of chicken, 3 forkfuls zachary/cauli started MVI Exercise routine includes: walking outside [facility] Medical History (Updated 07/24/24 @ 11:27 by AKILA Griffiths) Pre-op evaluation Hiatal hernia Anxiety Depression Hyperlipidemia Hypertension Obstructive sleep apnea on CPAP Non-insulin dependent type 2 diabetes mellitus Morbid obesity Surgical History (Updated 07/08/24 @ 00:01 by Danis Bhat) Hx of laparoscopic partial gastrectomy History of esophagogastroduodenoscopy (EGD) H/O colonoscopy Hx of myomectomy Hx of cholecystectomy Hx of appendectomy Hx of hysterectomy Social History Household Members: None Housing: House Housing Other:: in two family house Are you a primary child care attendant to a significant other at home: No Do you presently have visiting nurse or other home services: No Alcohol intake: current Alcohol intake frequency: does not drink Alcohol type: wine and other Patient Tobacco Use Status: Never used Tobacco service: No Telehealth Telehealth Telehealth Platform: Telephone Location of provider rendering services: practice address Location of patient: other Patient Identification confirmed using: Name, : Yes Telehealth method: voice only Patient verbally consented to treatment: Yes Patient verbally consented to billing insurance company: Yes Patient informed of any privacy concerns related to visit: Yes Minutes spent on Phone/Video with Pt.: 12 Assessment & Plan Assessment & Plan (1) Obesity: Code(s): E66.9 - Obesity, unspecified Category: Medical (2) S/P laparoscopic sleeve gastrectomy: Code(s): Z98.84 - Bariatric surgery status Category: Medical Plan Pt interested in meeting with Josette- howard schedule appt. Continue same meal plan per Dr Wright, do as best as she can with exercise to hit 2000 jaja/week goal, the recent deaths in her family have made it hard for her to get all her exercise in. Due to complete PPI this week, will monitor reflux symptoms. Continue to monitor BP at home. RTC 6 weeks. I spent a total of 30 minutes reviewing/updating records, examining the patient and counseling the patient on weight management as detailed above.
== END 2024-10-02 12:09 | disposition home or self-care (01) ==
LOC: HO.HBS 12:06
PROVIDERS: PCP Family Medicine; Visit Provider Physician Assistant Surgical
DX: E66.9 Obesity, unspecified (principal); E66.811 Obesity, class 1; Z68.34 Body mass index [BMI] 34.0-34.9, adult; Z98.84 Bariatric surgery status
CPT/HCPCS: 98967

== ENCOUNTER → 2024-10-18 11:25 | Outpatient (AMB) | payer BC, SELFPAY ==
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
== END ==
LOC: HO.HBST 11:25
PROVIDERS: PCP Family Medicine; Visit Provider Counselor Mental Health
DX: F43.20 Adjustment disorder, unspecified (principal); F43.21 Adjustment disorder with depressed mood
CPT/HCPCS: 90791

== ENCOUNTER → 2024-10-18 11:25 | Outpatient (BNVA) | payer BC, SELFPAY | PROVIDERS: PCP Family Medicine; Visit Provider Counselor Mental Health ==

== ENCOUNTER 2024-10-31 08:00 | Outpatient (AMB) | payer BC, SELFPAY ==
--- NOTE | 2024-10-31 08:05 | MHC.WMTHER ---
Intake Intake Visit Reasons: TELEPHONE PO LSG 06/29/24 Allergies oxycodone [From Percocet] Allergy (Mild, Verified 07/06/24 10:40) Hives lisinopril Adverse Reaction (Mild, Verified 07/06/24 10:40) Cough PFSH Medical History (Updated 10/18/24 @ 13:03 by Josette Rosales [facility]) Pre-op evaluation Hiatal hernia Anxiety Depression Hyperlipidemia Hypertension Obstructive sleep apnea on CPAP Non-insulin dependent type 2 diabetes mellitus Morbid obesity Surgical History (Updated 07/08/24 @ 00:01 by Dnais Bhat) Hx of laparoscopic partial gastrectomy History of esophagogastroduodenoscopy (EGD) H/O colonoscopy Hx of myomectomy Hx of cholecystectomy Hx of appendectomy Hx of hysterectomy Social History Household Members: None Housing: House Housing Other:: in two family house Are you a primary assisted living care manager to a significant other at home: No Do you presently have visiting nurse or other home services: No Alcohol intake: current Alcohol intake frequency: does not drink Alcohol type: wine and other Patient Tobacco Use Status: Never used Tobacco service: No Behavioral Health Assessment Weight Management Therapy Therapy Notes Details Subjective: The patient presents feeling very sad and tearful. She reports having a rough night, and after leaving a family member's home yesterday, she broke down. She shared that she ate her feelings by consuming chocolate and now feels guilty about it. Objective: The patient presents for a follow-up visit via Telehealth. During the session, I validated and normalized her feelings, emphasizing that it?s okay to experience sadness and grief. We worked on addressing grief symptoms, and I provided tools for emotional regulation and stress management. We explored her responses to emotional triggers and created a more effective coping plan, focusing on healthier alternatives to using food for emotional comfort. Cognitive Behavioral Therapy (CBT) techniques were used to identify and challenge negative thought patterns related to food and guilt. Additionally, we discussed mindfulness strategies to help her stay grounded during emotional moments and improve emotional resilience. Assessment/Response: Mental status: Tearful, sad, sensitive. Alert and oriented to person, place, and time. Mild to moderate functioning issues due to mood. Risk reported/identified: None PT was receptive to the interventions, engaged in the session, and demonstrated a willingness to work on healthier coping strategies. Assessment & Plan Assessment & Plan (1) Adjustment disorder, unspecified: Code(s): F43.20 - Adjustment disorder, unspecified (2) Grief: Code(s): F43.21 - Adjustment disorder with depressed mood Plan Continue working on grief processing, emotional regulation, and developing alternative coping skills. Practice mindfulness and CBT techniques between sessions. F/up in 1 week. Next danielle: 11/06 @12pm -PV Telehealth Telehealth Telehealth Platform: [employer] Location of provider rendering services: other Location of patient: address on file Patient Identification confirmed using: Name, : Yes Telehealth method: voice only Patient verbally consented to treatment: Yes Patient verbally consented to billing insurance company: Yes Patient informed of any privacy concerns related to visit: Yes Minutes spent on Phone/Video with Pt.: 60 Coding Level of Care Code Established Pt Tele Psytx >53 mins (68101) Patient Type Established Diagnoses Adjustment disorder, unspecified F43.20 Grief F43.21 Time Spent (min) 60
== END 2024-10-31 09:00 | disposition home or self-care (01) ==
LOC: HO.HBST 08:21
PROVIDERS: PCP Family Medicine; Visit Provider Counselor Mental Health
DX: F43.20 Adjustment disorder, unspecified (principal); F43.21 Adjustment disorder with depressed mood
CPT/HCPCS: 90837

== ENCOUNTER 2024-11-06 12:13 | Outpatient (AMB) | payer BC, SELFPAY ==
--- NOTE | 2024-11-06 12:12 | A.OFFWM_ITS ---
Intake Intake Visit Reasons: TELEPHONE PO LSG 06/29/24 Allergies oxycodone [From Percocet] Allergy (Mild, Verified 07/06/24 10:40) Hives lisinopril Adverse Reaction (Mild, Verified 07/06/24 10:40) Cough PFSH Medical History (Updated 10/18/24 @ 13:03 by Josette Rosales [facility]) Pre-op evaluation Hiatal hernia Anxiety Depression Hyperlipidemia Hypertension Obstructive sleep apnea on CPAP Non-insulin dependent type 2 diabetes mellitus Morbid obesity Surgical History (Updated 07/08/24 @ 00:01 by Danis Bhat) Hx of laparoscopic partial gastrectomy History of esophagogastroduodenoscopy (EGD) H/O colonoscopy Hx of myomectomy Hx of cholecystectomy Hx of appendectomy Hx of hysterectomy Social History Household Members: None Housing: House Housing Other:: in two family house Are you a primary child care team lead to a significant other at home: No Do you presently have visiting nurse or other home services: No Alcohol intake: current Alcohol intake frequency: does not drink Alcohol type: wine and other Patient Tobacco Use Status: Never used Tobacco service: No Behavioral Health Assessment Weight Management Therapy Therapy Notes Details Subjective: PT reports feeling much better overall, with noticeable progress in managing grief and adjusting to life changes. She states that she feels more empowered to continue her journey toward healing and self-improvement. Additionally, her PCP increased her Bupropion dosage to 300mg once daily. Objective: PT presented for a follow-up visit via Telehealth. During the session, we reviewed her overall functioning and progress. We discussed techniques for managing potential relapses and revisited coping methods she has learned. Her feelings were validated, and we normalized her experiences as part of the adjustment process. Assessment/Response: * Mental status: WNL * Risk reported/identified: None PT was open, active, and engaged during the session, reporting that she feels stable Presenting Concerns Referral Source [facility]-Provider. Dr Wright and Doris Deluca Reason for referral BH support due to grief Precipitating Event Loos of her mother 2 months ago a a close family member after thanksgiving. Assessment & Plan Assessment & Plan (1) Adjustment disorder, unspecified: Code(s): F43.20 - Adjustment disorder, unspecified (2) Grief: Code(s): F43.21 - Adjustment disorder with depressed mood Plan PT reports feeling very well today and believes she is ready to continue her journey without further support from this provider. She is encouraged to reach out if she needs additional visits in the future. Next appointment: None scheduled. Telehealth Telehealth Telehealth Platform: [facility] Location of provider rendering services: other Location of patient: address on file Patient Identification confirmed using: Name, : Yes Telehealth method: voice only Patient verbally consented to treatment: Yes Patient verbally consented to billing insurance company: Yes Patient informed of any privacy concerns related to visit: Yes Minutes spent on Phone/Video with Pt.: 50 Coding Level of Care Code Established Pt Tele Psytx 45 mins (31185) Patient Type Established Diagnoses Adjustment disorder, unspecified F43.20 Grief F43.21 Time Spent (min) 50
== END 2024-11-06 14:10 | disposition home or self-care (01) ==
LOC: HO.HBST 12:13
PROVIDERS: PCP Family Medicine; Visit Provider Counselor Mental Health
DX: F43.20 Adjustment disorder, unspecified (principal); F43.21 Adjustment disorder with depressed mood
CPT/HCPCS: 90834

== ENCOUNTER 2024-11-13 15:33 | Outpatient (AMB) | payer BC, SELFPAY ==
--- NOTE | 2024-11-13 15:29 | A.OFFVIS_ITS ---
VS Expanded 11/13/24 15:33 Height 5 ft 5 in Weight 206 lb 14 oz BMI 34.4 Intake Visit Reasons: TELEPHONE PO LSG 06/29/24 Allergies oxycodone [From Percocet] Allergy (Mild, Verified 07/06/24 10:40) Hives lisinopril Adverse Reaction (Mild, Verified 07/06/24 10:40) Cough Medication List - Last Reconciled 11/13/24 by AKILA Griffiths atorvastatin 40 mg PO QAM bupropion HCl XL 450 mg PO QAM losartan 50 mg PO DAILY sertraline 150 mg PO QAM HPI Comments Details: This?is a?54 yo female who is s/p LSG 06/29/2024. Presents for 4.5 month post op visit. Weight at last visit on 10/02/2024 was 205 pounds with a BMI of 34.1, weight today is 206.8 pounds, representing a 1.8 pound weight gain.? No complaints of nausea, emesis, abdominal pain or reflux, or constipation. Has been meeting with Josette, found it very helpful. [place] much better after the holidays. Reports she ate off plan over the holidays but back on track. Off amlodipine, on losartan 50 mg per PCP (dose decreased). Present meal plan includes: 4oz Premier in 4oz UAM x3 Built bar 3 forkfuls of chicken, 3 forkfuls zachary/cauli started MVI Exercise routine includes: walking on treadmill- 2x this week [facility] Medical History (Updated 10/18/24 @ 13:03 by Josette Rosales [facility]) Pre-op evaluation Hiatal hernia Anxiety Depression Hyperlipidemia Hypertension Obstructive sleep apnea on CPAP Non-insulin dependent type 2 diabetes mellitus Morbid obesity Surgical History (Updated 07/08/24 @ 00:01 by Danis Bhat) Hx of laparoscopic partial gastrectomy History of esophagogastroduodenoscopy (EGD) H/O colonoscopy Hx of myomectomy Hx of cholecystectomy Hx of appendectomy Hx of hysterectomy Social History Household Members: None Housing: House Housing Other:: in two family house Are you a primary home care liaison to a significant other at home: No Do you presently have visiting nurse or other home services: No Alcohol intake: current Alcohol intake frequency: does not drink Alcohol type: wine and other Patient Tobacco Use Status: Never used Tobacco service: No Telehealth Telehealth Telehealth Platform: Telephone Location of provider rendering services: other Location of patient: address on file Patient Identification confirmed using: Name, : Yes Telehealth method: voice only Patient verbally consented to treatment: Yes Patient verbally consented to billing insurance company: Yes Patient informed of any privacy concerns related to visit: Yes Minutes spent on Phone/Video with Pt.: 14 Assessment & Plan Assessment & Plan (1) Obesity: Code(s): E66.9 - Obesity, unspecified Category: Medical (2) S/P laparoscopic sleeve gastrectomy: Code(s): Z98.84 - Bariatric surgery status Category: Surgical Plan Pt feels that she made good progress with Josette and does not need to follow up. Continue above meal plan, back on track, increase exercise. Will order labs at next visit. RTC 6 weeks for 6mo visit. I spent a total of 30 minutes reviewing/updating records, examining the patient and counseling the patient on weight management as detailed above.
[2024-11-13 15:33] VITALS: BMI 34.4
== END 2024-11-13 16:09 | disposition home or self-care (01) ==
LOC: HO.HBS 15:33
PROVIDERS: PCP Family Medicine; Visit Provider Physician Assistant Surgical
DX: E66.9 Obesity, unspecified (principal); Z98.84 Bariatric surgery status
CPT/HCPCS: 98967

== ENCOUNTER → 2024-11-13 15:33 | Outpatient (BNVA) | payer BC, SELFPAY | PROVIDERS: PCP Family Medicine; Visit Provider Physician Assistant Surgical ==

== ENCOUNTER 2025-01-01 11:46 | Outpatient (AMB) | payer BC, SELFPAY ==
--- NOTE | 2025-01-01 11:26 | MHC.OFFVISWM ---
VS Expanded 01/01/25 11:41 Height 5 ft 5 in Weight 205 lb BMI 34.1 Intake Visit Reasons: TELEPHONE PL LSG 06/29/24 Allergies oxycodone [From Percocet] Allergy (Mild, Verified 07/06/24 10:40) Hives lisinopril Adverse Reaction (Mild, Verified 07/06/24 10:40) Cough Medication List - Last Reconciled 01/01/25 by AKILA Griffiths atorvastatin 40 mg PO QAM bupropion HCl XL 450 mg PO QAM losartan 50 mg PO DAILY sertraline 150 mg PO QAM HPI Comments Details: This?is a?54 yo female who is s/p LSG 06/29/2024. Presents for 6 month post op visit. Weight at last visit on 11/13/2024 was 206.8 pounds with a BMI of 34.4, weight today is 205 pounds, representing a 1.8 pound weight loss.? No complaints of nausea, emesis, abdominal pain or reflux, or constipation. Has been meeting with Josette, found it very helpful. [place] much better after the holidays. Reports she ate off plan over the holidays but back on track. Off amlodipine, on losartan 50 mg. I did cheat a few times this weekend and it was not worth it - it was a mistake in what she had ordered and had pain with orzo. She also had some carbonated seltzer which caused discomfort. Present meal plan includes: 4oz Premier in 4oz UAM x3 Built bar 3 forkfuls of chicken, 3 forkfuls zachary/cauli started MVI Exercise routine includes: walking on treadmill- 2x this week started working with a personal injury attorney Pt reports some issues of excess skin of abdomen where she is noticing the skin slaps together with any movement. Has not tried a girdle or binder but willing to try. [facility] Medical History (Updated 10/18/24 @ 13:03 by Josette Rosales [facility]) Pre-op evaluation Hiatal hernia Anxiety Depression Hyperlipidemia Hypertension Obstructive sleep apnea on CPAP Non-insulin dependent type 2 diabetes mellitus Morbid obesity Surgical History (Updated 07/08/24 @ 00:01 by Danis Bhat) Hx of laparoscopic partial gastrectomy History of esophagogastroduodenoscopy (EGD) H/O colonoscopy Hx of myomectomy Hx of cholecystectomy Hx of appendectomy Hx of hysterectomy Social History Household Members: None Housing: House Housing Other:: in two family house Are you a primary campground caretaker to a significant other at home: No Do you presently have visiting nurse or other home services: No Alcohol intake: current Alcohol intake frequency: does not drink Alcohol type: wine and other Patient Tobacco Use Status: Never used Tobacco service: No Telehealth Telehealth Telehealth Platform: Telephone Location of provider rendering services: other Location of patient: address on file Patient Identification confirmed using: Name, : Yes Telehealth method: voice only Patient verbally consented to treatment: Yes Patient verbally consented to billing insurance company: Yes Patient informed of any privacy concerns related to visit: Yes Minutes spent on Phone/Video with Pt.: 17 Assessment & Plan Assessment & Plan (1) Obesity: Code(s): E66.9 - Obesity, unspecified Category: Medical (2) S/P laparoscopic sleeve gastrectomy: Code(s): Z98.84 - Bariatric surgery status Category: Medical Plan Pt will continue meal plan per Dr. Maru Montano healthy foods list. She has increased exercise now working with a link trainer teacher. Labs ordered, she is also due for labs by PCP so will let me know if PCP requests anything additional and I will add to our labs. RTC 3 months. I spent a total of 30 minutes reviewing/updating records, examining the patient and counseling the patient on weight management as detailed above. Orders: Orders Insulin Today Z.84 - Bariatric surgery status Hemoglobin A1c Today Z98.84 - Bariatric surgery status IRON PROFILE Today Z.84 - Bariatric surgery status Vitamin B1 Today Z.84 - Bariatric surgery status TSH reflex Free T4 Today Z98.84 - Bariatric surgery status Vitamin D 25-OH Total Today Z98.84 - Bariatric surgery status Complete Blood Count Auto Diff Today Z98.84 - Bariatric surgery status Lipid Panel Today Z.84 - Bariatric surgery status Comprehensive Met. Panel Today Z.84 - Bariatric surgery status Vitamin B12 and Folate Today Z.84 - Bariatric surgery status Zinc Today Z98.84 - Bariatric surgery status C Reactive Protein Today Z98.84 - Bariatric surgery status Vitamin A Today Z.84 - Bariatric surgery status Ferritin Today Z98.84 - Bariatric surgery status
[2025-01-01 11:41] VITALS: BMI 34.1
== END 2025-01-01 11:59 | disposition home or self-care (01) ==
LOC: HO.HBS 11:46
PROVIDERS: PCP Family Medicine; Visit Provider Physician Assistant Surgical
DX: E66.811 Obesity, class 1 (principal); Z68.34 Body mass index [BMI] 34.0-34.9, adult; Z90.3 Acquired absence of stomach [part of]; Z98.84 Bariatric surgery status
CPT/HCPCS: 98967

== ENCOUNTER → 2025-01-01 11:46 | Outpatient (BNVA) | payer BC, SELFPAY | PROVIDERS: PCP Family Medicine; Visit Provider Physician Assistant Surgical ==

== ENCOUNTER 2025-02-23 06:41 | Outpatient (REF) | payer BC, SELFPAY ==
[2025-02-23 06:57] LABS: MANUAL DIFF FLAG NO
[2025-02-23 07:18] LABS: Basophils Percent Auto 0.6 % (0-2); Eosinophils Absolute Auto 0.2 X10*3/uL (0.0-0.4); Eosinophils Percent Auto 3.6 % (0-4); Hematocrit 38.4 % (37.0-47.0); Hemoglobin 12.6 g/dl (12.0-16.0); Imm Gran Abs Auto 0.02 X10*3/uL (0.00-0.03); Imm Gran Pct Auto 0.3 % (0.0-0.4); Lymphocytes Absolute Auto 1.2 X10*3/uL (1.2-4.9); Lymphocytes Percent Auto 18.2 % (20-40); Mean Corpuscular HGB Conc 32.8 g/dl (31.0-35.0); Mean Corpuscular Hemoglobin 32.1 pg (27.0-33.0); Monocytes Absolute Auto 0.3 X10*3/uL (0.1-1.2); Neutrophils Absolute Auto 4.9 x10*3/uL (2.0-8.3); Neutrophils Percent Auto 72.3 % (45-73); Platelet Count 279 X10*3/uL (160-400); Red Blood Count 3.92 X10*6/uL (4.20-5.50); Red Cell Distribution Width 13.5 % (11.0-16.0); White Blood Count 6.8 X10*3/uL (4.8-10.8)
[2025-02-23 07:24] LABS: Estimated Average Glucose 100 mg/dL; Hemoglobin A1c % 5.1 % (<6.0); Total Hemoglobin (HGBA1C) 3380.4761 umol/L
[2025-02-23 07:53] LABS: Alanine Aminotransferase 47 U/L (0-31); Albumin Level 3.9 g/dL (3.5-5.0); Anion Gap 10 (12-20); Aspartate Amino Transferase 30 U/L (5-31); Bilirubin Total 0.5 mg/dL (0.0-1.0); Blood Urea Nitrogen 16 mg/dL (9-16); C Reactive Protein 0.18 mg/dL (< or = 0.50); Calcium 9.2 mg/dL (8.4-10.2); Carbon Dioxide 30 mmol/L (22-29); Chloride 108 mmol/L (96-108); Cholesterol 119 mg/dL (<200); Estimated Glomerular Filt Rate > 60; Glucose Random 102 mg/dL (60-115); HDL Cholesterol 48 mg/dL (>40); Iron 44 mcg/dL (30-160); LDL Cholesterol Calculated 59 mg/dL (<100); Percent Iron Saturation 16 % (15-50); Potassium 3.6 mmol/L (3.3-5.1); Sodium 144 mmol/L (135-145); Total Iron Binding Capacity 273 mcg/dL (228-428); Total Protein 6.5 g/dL (6.5-8.0); Triglycerides 60 mg/dL (<150); Unsaturated Iron Binding 229 ug/dL
[2025-02-23 08:05] LABS: Alkaline Phosphatase 102 U/L (39-117)
[2025-02-23 08:20] LABS: Ferritin 94 ng/mL (10-250); Insulin 6 uU/mL (2-29); TSH reflex Free T4 1.85 uIU/mL (0.32-4.0)
[2025-02-23 08:29] LABS: Folate 3.4 ng/mL (> or = 4.0); Vitamin B12 704 pg/mL (200-900)
[2025-02-27 00:59] LABS: Zinc 70 mcg/dL (60-130)
[2025-02-28 00:48] LABS: Vitamin A 33 mcg/dL (38-98)
[2025-03-05 16:38] LABS: Vitamin B1 14 nmol/L (8-30)
== END 2025-02-23 06:42 | disposition home or self-care (01) ==
LOC: HO.LAB 06:41
PROVIDERS: PCP Physician Assistant Medical; Visit Provider Physician Assistant Surgical
DX: Z98.84 Bariatric surgery status (principal); Z13.1 Encounter for screening for diabetes mellitus; Z13.6 Encounter for screening for cardiovascular disorders
CPT/HCPCS: 36415; 80053; 80061; 82306; 82607; 82728; 82746; 83036; 83525; 83540; 84425; 84443; 84590; 84630; 85025; 86140

== ENCOUNTER 2025-03-06 12:14 | Outpatient (AMB) | payer BC, SELFPAY ==
--- NOTE | 2025-03-06 12:05 | MHC.OFFVISWM ---
VS Expanded 03/06/25 12:07 Height 5 ft 5 in Weight 205 lb BMI 34.1 Intake Visit Reasons: TV PO LSG 06/29/24 Allergies oxycodone [From Percocet] Allergy (Mild, Verified 07/06/24 10:40) Hives lisinopril Adverse Reaction (Mild, Verified 07/06/24 10:40) Cough Medication List - Last Reconciled 03/06/25 by AKILA Griffiths atorvastatin 40 mg PO QAM bupropion HCl XL 450 mg PO QAM cholecalciferol (vitamin D3) 50 mcg PO DAILY losartan 50 mg PO DAILY sertraline 150 mg PO QAM vitamin A palmitate 10,000 units PO DAILY HPI Comments Details: This?is a?54 yo F who is s/p LSG 06/29/2024. Presents for 8mo post op visit. Weight at last visit on 01/01/2025 was 205 pounds with a BMI of 34.1, weight today is same.? No complaints of nausea, emesis, abdominal pain or reflux, or constipation. Was on vacation, ate off plan. Off amlodipine, on losartan 50 mg. Present meal plan includes: 1/2 scoop in 8oz UAM 1 scoop in 8oz UAM Built bar x3 6 forkfuls of chicken, 6 forkfuls veg started MVI Exercise routine includes: walking on treadmill working with a personal banking advisor Pt reports some issues of excess skin of abdomen where she is noticing the skin slaps together with any movement. Has not tried a girdle or binder but willing to try. [facility] Medical History (Updated 10/18/24 @ 13:03 by Josette Rosales [facility]) Pre-op evaluation Hiatal hernia Anxiety Depression Hyperlipidemia Hypertension Obstructive sleep apnea on CPAP Non-insulin dependent type 2 diabetes mellitus Morbid obesity Surgical History (Updated 07/08/24 @ 00:01 by Danis Bhat) Hx of laparoscopic partial gastrectomy History of esophagogastroduodenoscopy (EGD) H/O colonoscopy Hx of myomectomy Hx of cholecystectomy Hx of appendectomy Hx of hysterectomy Social History Household Members: None Housing: House Housing Other:: in two family house Are you a primary caregivers homecare to a significant other at home: No Do you presently have visiting nurse or other home services: No Alcohol intake: current Alcohol intake frequency: does not drink Alcohol type: wine and other Patient Tobacco Use Status: Never used Tobacco service: No Telehealth Telehealth Telehealth Platform: Telephone Location of provider rendering services: practice address Location of patient: address on file Patient Identification confirmed using: Name, : Yes Telehealth method: voice only Patient verbally consented to treatment: Yes Patient verbally consented to billing insurance company: Yes Patient informed of any privacy concerns related to visit: Yes Minutes spent on Phone/Video with Pt.: 16 Assessment & Plan Assessment & Plan (1) Obesity: Code(s): E66.9 - Obesity, unspecified Category: Medical (2) S/P laparoscopic sleeve gastrectomy: Code(s): Z98.84 - Bariatric surgery status Category: Surgical Plan Pt to continue same meal plan per Dr Mahoney She plans to get back on track after vacation. Continue exercise regimen. Labs reviewed, vit A and D supplemented. RTC 3 months. Medications: New cholecalciferol (vitamin D3) 50 mcg PO DAILY 90 caps 3RF vitamin A palmitate 10,000 units PO DAILY 90 caps 3RF
[2025-03-06 12:07] VITALS: BMI 34.1
== END 2025-03-06 12:27 | disposition home or self-care (01) ==
LOC: HO.HBS 12:14
PROVIDERS: PCP Physician Assistant Medical; Visit Provider Physician Assistant Surgical
DX: E66.9 Obesity, unspecified (principal); Z68.34 Body mass index [BMI] 34.0-34.9, adult; Z90.3 Acquired absence of stomach [part of]; Z98.84 Bariatric surgery status
CPT/HCPCS: 98967

== ENCOUNTER → 2025-03-06 12:14 | Outpatient (BNVA) | payer BC, SELFPAY | PROVIDERS: PCP Physician Assistant Medical; Visit Provider Physician Assistant Surgical | DX: E66.9 Obesity, unspecified (principal); Z68.34 Body mass index [BMI] 34.0-34.9, adult; Z98.84 Bariatric surgery status | CPT/HCPCS: 98967 ==

== ENCOUNTER 2025-04-10 12:30 | Outpatient (AMB) | payer BC, SELFPAY ==
--- NOTE | 2025-04-10 12:33 | MHC.OFFVISWM ---
VS Expanded 04/10/25 12:41 Height 5 ft 5 in Weight 202 lb BMI 33.6 Intake Visit Reasons: TELEPHONE PO LSG 06/29/24 Allergies oxycodone [From Percocet] Allergy (Mild, Verified 07/06/24 10:40) Hives lisinopril Adverse Reaction (Mild, Verified 07/06/24 10:40) Cough Medication List - Last Reconciled 04/10/25 by AKILA Griffiths atorvastatin 40 mg PO QAM bupropion HCl XL 450 mg PO QAM cholecalciferol (vitamin D3) 50 mcg PO DAILY losartan 50 mg PO DAILY sertraline 150 mg PO QAM vitamin A palmitate 10,000 units PO DAILY HPI Comments Details: This?is a?54?yo F who is s/p LSG 06/29/2024. Presents for 9mo post op visit. Weight at last visit on 03/06/2025 was 205 pounds with a BMI of 34.1, weight today is 202 pounds, representing a 3 pound weight loss with a BMI today of 33.6.? No complaints of nausea, emesis, abdominal pain or reflux, or constipation. I feel so manic still struggling after the passing of her mother. Has led to some emotional/mindless eating. On the weekends she has a harder time due to lacking structure of a workday. Did sign up to work in May. Present meal plan includes: 1/2 scoop in 8oz UAM 1 scoop in 8oz UAM Built bar x3 6 forkfuls of chicken, 6 forkfuls veg started MVI Exercise routine includes: walking on treadmill working with a personal security specialist- 3x/week Pt reports some issues of excess skin of abdomen where she is noticing the skin slaps together with any movement. [facility] Medical History (Updated 10/18/24 @ 13:03 by Josette Rosales [facility]) Pre-op evaluation Hiatal hernia Anxiety Depression Hyperlipidemia Hypertension Obstructive sleep apnea on CPAP Non-insulin dependent type 2 diabetes mellitus Morbid obesity Surgical History (Updated 07/08/24 @ 00:01 by Danis Bhat) Hx of laparoscopic partial gastrectomy History of esophagogastroduodenoscopy (EGD) H/O colonoscopy Hx of myomectomy Hx of cholecystectomy Hx of appendectomy Hx of hysterectomy Social History Household Members: None Housing: House Housing Other:: in two family house Are you a primary health care manager to a significant other at home: No Do you presently have visiting nurse or other home services: No Alcohol intake: current Alcohol intake frequency: does not drink Alcohol type: wine and other Patient Tobacco Use Status: Never used Tobacco service: No Telehealth Telehealth Telehealth Platform: Telephone Location of provider rendering services: practice address Location of patient: address on file Patient Identification confirmed using: Name, : Yes Telehealth method: voice only Patient verbally consented to treatment: Yes Patient verbally consented to billing insurance company: Yes Patient informed of any privacy concerns related to visit: Yes Minutes spent on Phone/Video with Pt.: 16 Assessment & Plan Assessment & Plan (1) Obesity: Code(s): E66.9 - Obesity, unspecified Category: Medical (2) S/P laparoscopic sleeve gastrectomy: Code(s): Z98.84 - Bariatric surgery status Category: Medical Plan Discussed finding a support person in her life that she can consistently spend time with or include in her schedule. She is trying to fill her days with activities over the summer to give herself structure (work in AM, work out with friends in PM). I offered info on [facility] in addition to Josette's support, if she would like to see someone regularly for grief counseling. Texted link to pt. Scheduled to have a visit with Josette in 2w. RTC in 6w at previously scheduled appt.
[2025-04-10 12:41] VITALS: BMI 33.6
== END 2025-04-10 13:05 | disposition home or self-care (01) ==
LOC: HO.HBS 12:46
PROVIDERS: PCP Physician Assistant Medical; Visit Provider Physician Assistant Surgical
DX: E66.9 Obesity, unspecified (principal); Z68.33 Body mass index [BMI] 33.0-33.9, adult; Z90.3 Acquired absence of stomach [part of]; Z98.84 Bariatric surgery status
CPT/HCPCS: 98967

== ENCOUNTER → 2025-04-10 12:30 | Outpatient (BNVA) | payer BC, SELFPAY | PROVIDERS: PCP Physician Assistant Medical; Visit Provider Physician Assistant Surgical | DX: E66.01 Morbid (severe) obesity due to excess calories (principal); L98.9 Disorder of the skin and subcutaneous tissue, unspecified; Z68.33 Body mass index [BMI] 33.0-33.9, adult; Z90.49 Acquired absence of other specified parts of digestive tract; Z90.3 Acquired absence of stomach [part of] | CPT/HCPCS: 98967 ==

== ENCOUNTER 2025-04-27 14:10 | Outpatient (AMB) | payer BC, SELFPAY ==
--- NOTE | 2025-04-27 14:00 | MHC.WMTHER ---
Intake Intake Visit Reasons: TV PO LSG 06/29/24 Allergies oxycodone (From Percocet) Allergy (Mild, Verified 07/06/24 10:40) Hives lisinopril Adverse Reaction (Mild, Verified 07/06/24 10:40) Cough [facility] Medical History (Updated 10/18/24 @ 13:03 by Josette Rosales [facility]) Pre-op evaluation Hiatal hernia Anxiety Depression Hyperlipidemia Hypertension Obstructive sleep apnea on CPAP Non-insulin dependent type 2 diabetes mellitus Morbid obesity Surgical History (Updated 07/08/24 @ 00:01 by Danis Bhat) Hx of laparoscopic partial gastrectomy History of esophagogastroduodenoscopy (EGD) H/O colonoscopy Hx of myomectomy Hx of cholecystectomy Hx of appendectomy Hx of hysterectomy Social History Household Members: None Housing: House Housing Other:: in two family house Are you a primary rn primary care to a significant other at home: No Do you presently have visiting nurse or other home services: No Alcohol intake: current Alcohol intake frequency: does not drink Alcohol type: wine and other Patient Tobacco Use Status: Never used Tobacco service: No Behavioral Health Assessment Weight Management Therapy Therapy Notes Details Subjective: The patient reports ongoing struggles over the past month. 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 She is able to fall asleep initially but consistently wakes at 3 a.m. and is unable to return to sleep, resulting in significant fatigue and an energy crash by 4 p.m. On days when she is overtired or falls asleep later than usual, she continues to experience disrupted sleep patterns. She expresses frustration with her current sleep and energy levels. Objective: The patient participated in a behavioral health session via telephone. She was last seen in October 2024 for support related to grief. In today?s session, we reviewed recent life events, current functioning, and ongoing challenges. The session included reflection on emotional triggers, patterns of response, and her current coping status. Grief counseling was provided, and coping strategies for managing emotional distress and sleep difficulties were discussed. Assessment/Response: Mental status: Alert, oriented, mood described as frustrated and fatigued, affect congruent with mood. No evidence of psychosis or cognitive impairment. Risk reported/identified: none Patient was engaged and receptive to interventions. Food/Weight/Diet Expectations of change Recent weight: 202 lbs. Assessment & Plan Assessment & Plan (1) Adjustment disorder, unspecified: Code(s): F43.20 - Adjustment disorder, unspecified (2) Grief: Code(s): F43.21 - Adjustment disorder with depressed mood Plan Continue with biweekly therapy sessions Next appointment scheduled for 05/09/2025 via Telehealth -Monitor sleep patterns and emotional regulation -Reinforce use of coping strategies for grief and sleep hygiene -Patient encouraged to track sleep and mood patterns for discussion at next session -Will reassess need for additional interventions or referrals as indicated Telehealth Telehealth Telehealth Platform: [employer] Location of provider rendering services: other (Home office. [place], [place]) Location of patient: address on file Patient Identification confirmed using: Name, : Yes Telehealth method: voice only Patient verbally consented to treatment: Yes Patient verbally consented to billing insurance company: Yes Patient informed of any privacy concerns related to visit: Yes Minutes spent on Phone/Video with Pt.: 60 Coding Level of Care Code Established Pt Tele Psytx >53 mins (28059) Patient Type Established Diagnoses Adjustment disorder, unspecified F43.20 Grief F43.21 Time Spent (min) 60
== END 2025-04-27 15:07 | disposition home or self-care (01) ==
LOC: HO.HBST 14:10
PROVIDERS: PCP Physician Assistant Medical; Visit Provider Counselor Mental Health
DX: F43.20 Adjustment disorder, unspecified (principal); F43.21 Adjustment disorder with depressed mood
CPT/HCPCS: 90837

== ENCOUNTER 2025-05-09 15:00 | Outpatient (AMB) | payer BC, SELFPAY ==
--- NOTE | 2025-05-09 15:05 | A.OFFWM_ITS ---
Intake Intake Visit Reasons: TV PO LSG 06/29/24 Allergies oxycodone (From Percocet) Allergy (Mild, Verified 07/06/24 10:40) Hives lisinopril Adverse Reaction (Mild, Verified 07/06/24 10:40) Cough PFSH Medical History (Updated 10/18/24 @ 13:03 by Josette Rosales [facility]) Pre-op evaluation Hiatal hernia Anxiety Depression Hyperlipidemia Hypertension Obstructive sleep apnea on CPAP Non-insulin dependent type 2 diabetes mellitus Morbid obesity Surgical History (Updated 07/08/24 @ 00:01 by Danis Bhat) Hx of laparoscopic partial gastrectomy History of esophagogastroduodenoscopy (EGD) H/O colonoscopy Hx of myomectomy Hx of cholecystectomy Hx of appendectomy Hx of hysterectomy Social History Household Members: None Housing: House Housing Other:: in two family house Are you a primary director critical care to a significant other at home: No Do you presently have visiting nurse or other home services: No Alcohol intake: current Alcohol intake frequency: does not drink Alcohol type: wine and other Patient Tobacco Use Status: Never used Tobacco service: No Behavioral Health Assessment Weight Management Therapy Therapy Notes Details Subjective: Patient reports returning to self-sabotaging behaviors following a recent family event. She describes frequent crying episodes and a sense of stagnation in her weight-loss journey. She is experiencing poor sleep and daytime fatigue. The recent vacation break has disrupted her routine, making it harder to maintain he althy habits. On a positive note, she has been connecting with two individuals who are also dealing with grief, which she finds helpful, though she feels guilty about needing support. She is attending group exercise classes three times per week. Patient notes a pattern of skipping meals during the day, followed by increased snacking at night. Objective: Patient attended a follow-up visit via telehealth. Session focused on processing current functioning and ongoing challenges. Explored the cycle of avoidance and identified specific situations where this pattern occurs, with patient insight and agreement. Provided psychoeducation on the importance of regular meals to prevent nighttime snacking, highlighting the body?s need for consistent energy intake. Collaboratively developed an immediate plan to improve sleep hygiene, eating patterns, and the use of coping skills. Patient?s feelings were validated and normalized throughout the session. Assessment/Response: * Mental status: alert and oriented x3, mood is low and affect congruent, thought process logical, insight and judgment intact, no evidence of psychosis or cognitive impairment. * Risk reported/identified:No suicidal or homicidal ideation, no self-harm or harm to others reported or observed. No acute safety concerns identified. Assessment & Plan Assessment & Plan (1) Adjustment disorder, unspecified: Code(s): F43.20 - Adjustment disorder, unspecified (2) Grief: Code(s): F43.21 - Adjustment disorder with depressed mood Plan Continue to monitor mood, sleep, and eating patterns. Encourage patient to implement the agreed-upon plan for sleep hygiene, regular meals, and coping strategies. Reinforce the value of social support and normalize seeking help. Follow-up scheduled in 2 weeks: next appointment 05/21 at 3pm via phone call. Telehealth Telehealth Telehealth Platform: [employer] Location of provider rendering services: other (Home office. [place], [place]) Location of patient: address on file Patient Identification confirmed using: Name, : Yes Telehealth method: voice only Patient verbally consented to treatment: Yes Patient verbally consented to billing insurance company: Yes Patient informed of any privacy concerns related to visit: Yes Minutes spent on Phone/Video with Pt.: 60 Coding Level of Care Code Established Pt Tele Psytx >53 mins (20288) Patient Type Established Diagnoses Adjustment disorder, unspecified F43.20 Grief F43.21 Time Spent (min) 60
== END 2025-05-09 15:53 | disposition home or self-care (01) ==
LOC: HO.HBST 15:09
PROVIDERS: PCP Physician Assistant Medical; Visit Provider Counselor Mental Health
DX: F43.20 Adjustment disorder, unspecified (principal); F43.21 Adjustment disorder with depressed mood
CPT/HCPCS: 90837

== ENCOUNTER 2025-05-21 15:11 | Outpatient (AMB) | payer BC, SELFPAY ==
--- NOTE | 2025-05-21 15:05 | A.OFFWM_ITS ---
Intake Intake Visit Reasons: TV PO LSG 06/29/24 Allergies oxycodone (From Percocet) Allergy (Mild, Verified 07/06/24 10:40) Hives lisinopril Adverse Reaction (Mild, Verified 07/06/24 10:40) Cough [facility] Medical History (Updated 10/18/24 @ 13:03 by Josette Rosales [facility]) Pre-op evaluation Hiatal hernia Anxiety Depression Hyperlipidemia Hypertension Obstructive sleep apnea on CPAP Non-insulin dependent type 2 diabetes mellitus Morbid obesity Surgical History (Updated 07/08/24 @ 00:01 by Danis Bhat) Hx of laparoscopic partial gastrectomy History of esophagogastroduodenoscopy (EGD) H/O colonoscopy Hx of myomectomy Hx of cholecystectomy Hx of appendectomy Hx of hysterectomy Social History Household Members: None Housing: House Housing Other:: in two family house Are you a primary lpn care manager to a significant other at home: No Do you presently have visiting nurse or other home services: No Alcohol intake: current Alcohol intake frequency: does not drink Alcohol type: wine and other Patient Tobacco Use Status: Never used Tobacco service: No Behavioral Health Assessment Weight Management Therapy Therapy Notes Details Subjective: This week has been particularly difficult for the patient as it rosado her mother?s 78th birthday, intensifying her ongoing struggle with grief. She reports a recent triggering event involving the surgeon, which has contributed to feelings of restriction and emotional distress. The patient expresses a desire to work on developing a healthier relationship with food. Objective: Patient attended a follow-up visit via phone call. -Utilized cognitive behavioral therapy ( CBT) techniques to help the patient identify and challenge negative thoughts related to grief, food, and recent triggering events. -Guided the patient through mindfulness exercises focused on present-moment awareness and acceptance of difficult emotions, particularly around grief and feelings of restriction. -Explored the impact of grief on eating behaviors and discussed strategies for grief management, including journaling and self-compassion practices. -Reviewed and practiced symptom manageme nt skills, such as grounding techniques and paced breathing, to address acute emotional distress. -Collaboratively developed actionable st eps to begin shifting toward a healthier relationship with food, including mindful eating practices and setting small, achievable goals. -Validated the patient?s experiences and normalized her emotional responses during this challenging time. Assessment/Response: * Mental status: Alert and oriented x3, mood is low and affect congruent, thought process logical and coherent, insight and judgment intact, no evidence of psychosis or cognitive impairment. * Risk reported/identified: No suicidal or homicidal ideation, no self-harm or harm to others reported or observed. No acute safety concerns identified. Food/Weight/Diet Expectations of supervisor records change 70 Lbs loss since had bariatric surgery in June/2024. Initial weight: 279:bs Weight on day of surgery: 235Lbs Current weight 05/10/25: 205 Lbs History/Relationship with food Example of daily intake: 4:30am: 1 protein bar 8am: protein shake (half) 1:30pm: Protein bar 4pm: Protein bar 6:30pm: Dinner grilled chicken + veggies 8pm: protein shake (half) Assessment & Plan Assessment & Plan (1) Adjustment disorder, unspecified: Code(s): F43.20 - Adjustment disorder, unspecified (2) Grief: Code(s): F43.21 - Adjustment disorder with depressed mood Plan Continue to monitor mood, grief symptoms, and eating behaviors. Encourage ongoing use of CBT and mindfulness strategies between sessions. Support patient in implementing small, realistic changes toward a healthier relationship with food. Follow-up scheduled in 2 weeks; next appointment: 06/15/2025 via phone call. Telehealth Telehealth Telehealth Platform: [employer] Location of provider rendering services: other (Home office. [place], [place]) Location of patient: address on file Patient Identification confirmed using: Name, : Yes Telehealth method: voice only Patient verbally consented to treatment: Yes Patient verbally consented to billing insurance company: Yes Patient informed of any privacy concerns related to visit: Yes Minutes spent on Phone/Video with Pt.: 60 Coding Level of Care Code Established Pt Tele Psytx >53 mins (31755) Patient Type Established Diagnoses Adjustment disorder, unspecified F43.20 Grief F43.21 Time Spent (min) 60
== END 2025-05-21 16:04 | disposition home or self-care (01) ==
LOC: HO.HBST 15:11
PROVIDERS: PCP Physician Assistant Medical; Visit Provider Counselor Mental Health
DX: F43.20 Adjustment disorder, unspecified (principal); F43.21 Adjustment disorder with depressed mood
CPT/HCPCS: 90837

== ENCOUNTER 2025-05-24 13:01 | Outpatient (AMB) | payer BC, SELFPAY ==
--- NOTE | 2025-05-24 12:37 | A.OFFVIS_ITS ---
VS Expanded 05/24/25 12:41 Height 5 ft 5 in Weight 204 lb 4 oz BMI 34.0 Intake Visit Reasons: TELEPHONE PO LSG 06/29/24 Allergies oxycodone (From Percocet) Allergy (Mild, Verified 07/06/24 10:40) Hives lisinopril Adverse Reaction (Mild, Verified 07/06/24 10:40) Cough Medication List - Last Reconciled 05/24/25 by AKILA Griffiths atorvastatin 40 mg PO QAM bupropion HCl XL 450 mg PO QAM cholecalciferol (vitamin D3) 50 mcg PO DAILY losartan 50 mg PO DAILY sertraline 150 mg PO QAM vitamin A palmitate 10,000 units PO DAILY HPI Comments Details: This?is a?54?yo F who is s/p LSG 06/29/2024. Presents for 11 month post op visit. Weight at last visit on 04/10/2025 was 202 pounds with a BMI of 33.6. Weight today is 204.4 pounds, representing a 3 pound weight gain with a BMI today of 34.1.? No complaints of nausea, emesis, abdominal pain or reflux, or constipation. Has been seeing Josette every 2 weeks. She prefers to no longer check in with Dr Wright every week. Has a preop visit with Isreal Marlow for liposuction and panniculectomy next month. 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 [facility] Medical History (Updated 10/18/24 @ 13:03 by Josette Rosales [facility]) Pre-op evaluation Hiatal hernia Anxiety Depression Hyperlipidemia Hypertension Obstructive sleep apnea on CPAP Non-insulin dependent type 2 diabetes mellitus Morbid obesity Surgical History (Updated 07/08/24 @ 00:01 by Danis Bhat) Hx of laparoscopic partial gastrectomy History of esophagogastroduodenoscopy (EGD) H/O colonoscopy Hx of myomectomy Hx of cholecystectomy Hx of appendectomy Hx of hysterectomy Social History Household Members: None Housing: House Housing Other:: in two family house Are you a primary care management assistant to a significant other at home: No Do you presently have visiting nurse or other home services: No Alcohol intake: current Alcohol intake frequency: does not drink Alcohol type: wine and other Patient Tobacco Use Status: Never used Tobacco service: No Telehealth Telehealth Telehealth Platform: Telephone Location of provider rendering services: practice address Location of patient: address on file Patient Identification confirmed using: Name, : Yes Telehealth method: voice only Patient verbally consented to treatment: Yes Patient verbally consented to billing insurance company: Yes Patient informed of any privacy concerns related to visit: Yes Minutes spent on Phone/Video with Pt.: 16 Assessment & Plan Assessment & Plan (1) Obesity: Code(s): E66.9 - Obesity, unspecified Category: Medical (2) S/P laparoscopic sleeve gastrectomy: Code(s): Z98.84 - Bariatric surgery status Category: Medical Plan Pt will continue to meet with Josette regularly. She will text me from now on weekly. Will be due for labs again in August. RTC 3mo.
[2025-05-24 12:41] VITALS: BMI 34.0
== END 2025-05-24 13:02 | disposition home or self-care (01) ==
LOC: HO.HBS 13:01
PROVIDERS: PCP Physician Assistant Medical; Visit Provider Physician Assistant Surgical
DX: E66.9 Obesity, unspecified (principal); Z68.34 Body mass index [BMI] 34.0-34.9, adult; Z90.3 Acquired absence of stomach [part of]; Z98.84 Bariatric surgery status
CPT/HCPCS: 98967

== ENCOUNTER → 2025-05-24 13:01 | Outpatient (BNVA) | payer BC, SELFPAY | PROVIDERS: PCP Physician Assistant Medical; Visit Provider Physician Assistant Surgical | DX: E66.9 Obesity, unspecified (principal); Z98.84 Bariatric surgery status; Z68.34 Body mass index [BMI] 34.0-34.9, adult | CPT/HCPCS: 98967 ==

== ENCOUNTER 2025-08-22 12:00 | Outpatient (AMB) | payer BC, SELFPAY ==
--- NOTE | 2025-08-22 12:02 | MHC.OFFVISWM ---
VS Expanded 08/22/25 12:04 Height 5 ft 5 in Weight 212 lb 8 oz BMI 35.4 Intake Visit Reasons: TELEPHONE PO LSG 06/29/24 Allergies oxycodone (From Percocet) Allergy (Mild, Verified 07/06/24 10:40) Hives lisinopril Adverse Reaction (Mild, Verified 07/06/24 10:40) Cough Medication List - Last Reconciled 08/22/25 by AKILA Griffiths atorvastatin 40 mg PO QAM bupropion HCl XL 450 mg PO QAM cholecalciferol (vitamin D3) 50 mcg PO DAILY losartan 50 mg PO DAILY sertraline 150 mg PO QAM vitamin A palmitate 10,000 units PO DAILY HPI Comments Details: This is a 54 yo F who is s/p LSG 06/29/2024. Presents for 14 month post op visit. Weight at last visit on 04/10/2025 was 204.4 pounds with a BMI of 34.1. Weight today is 212.8 pounds, representing a 8.2 pound weight gain with a BMI today of 35.5. No complaints of nausea, emesis, abdominal pain, or constipation. Occasional reflux when drinking too fast. She prefers to no longer check in with Dr Wright every week. She prefers not to follow with anymore. Went to [facility] [place] for liposuction and panniculectomy in June. Having another procedure next month for excess skin of flanks. She feels much better about herself. 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 [facility] Medical History (Updated 10/18/24 @ 13:03 by Josette Rosales LM) Pre-op evaluation Hiatal hernia Anxiety Depression Hyperlipidemia Hypertension Obstructive sleep apnea on CPAP Non-insulin dependent type 2 diabetes mellitus Morbid obesity Surgical History (Updated 07/08/24 @ 00:01 by Danis Bhat) Hx of laparoscopic partial gastrectomy History of esophagogastroduodenoscopy (EGD) H/O colonoscopy Hx of myomectomy Hx of cholecystectomy Hx of appendectomy Hx of hysterectomy Social History Household Members: None Housing: House Housing Other:: in two family house Are you a primary rn intensive care unit to a significant other at home: No Do you presently have visiting nurse or other home services: No Alcohol intake: current Alcohol intake frequency: does not drink Alcohol type: wine and other Patient Tobacco Use Status: Never used Tobacco service: No Telehealth Telehealth Telehealth Platform: Telephone Location of provider rendering services: practice address Location of patient: address on file Patient Identification confirmed using: Name, : Yes Telehealth method: voice only Patient verbally consented to treatment: Yes Patient verbally consented to billing insurance company: Yes Patient informed of any privacy concerns related to visit: Yes Minutes spent on Phone/Video with Pt.: 15 Assessment & Plan Assessment & Plan (1) Obesity: Code(s): E66.9 - Obesity, unspecified Category: Medical (2) S/P laparoscopic sleeve gastrectomy: Code(s): Z98.84 - Bariatric surgery status Category: Surgical Plan I suggested going back to the [facility] for better structure with meal plans. She is agreeable to this. She will use a plan from [facility]ielle to help with additional weight loss. Discussed reflux triggers. Labs ordered. RTC 3 months TV. Orders: Orders Insulin Today Z98.84 - Bariatric surgery status Complete Blood Count Auto Diff Today Z98.84 - Bariatric surgery status Comprehensive Met. Panel Today Z.84 - Bariatric surgery status TSH reflex Free T4 Today Z98.84 - Bariatric surgery status Ferritin Today Z98.84 - Bariatric surgery status Vitamin B12 and Folate Today Z98.84 - Bariatric surgery status Hemoglobin A1c Today Z98.84 - Bariatric surgery status Vitamin D 25-OH Total Today Z98.84 - Bariatric surgery status C Reactive Protein Today Z98.84 - Bariatric surgery status Vitamin B1 Today Z98.84 - Bariatric surgery status Lipid Panel Today Z98.84 - Bariatric surgery status IRON PROFILE Today Z98.84 - Bariatric surgery status Zinc Today Z98.84 - Bariatric surgery status Vitamin A Today Z98.84 - Bariatric surgery status
[2025-08-22 12:04] VITALS: BMI 35.4
--- OUTSIDE RECORDS SUMMARY | 2025-08-22 15:42 | XMS_ITS | Data Portability ---
Author Organization [facility], Main Office Address [address] [facility] [address] [place] [id number] Care Team Providers Care Oyster Shipper Name Role Phone AMANDA CONDON Electronics Engineering Manager RAMONA FIGUEROA Wet Sander ERIBERTO PAYNE Postal Transportation Clerk [facility] Dermato logist MARGO GONZALES Primary Care Provider [phone] Assessment No assessment recorded. Plan of Treatment Reminders Order Date Submit Date Provider Last Modified By Organization Details Last Modified Time Details Appointments Follow Up DM 30 2024 10:30A Jennifer Gonzales PA-C Not available Not available Not available Lab lipid panel, serum 2024 025 [facility] (Centralized Electronic Ordering - All Locations), Patient Can Go To The Location Of Their Choice, [id number] 02/26/2025 11:48:23 CMP, serum or plasma 2024 025 [facility] (Centralized Electronic Ordering - All Locations), Patient Can Go To The Location Of Their Choice, [id number] 02/26/2025 11:48:23 hemoglobi n A1C, fingersti ck 2024 025 In-Office Order, Internal Use Only DO Not Attach Compendium DO Not Attach Compendium, Do Not Delete/merge, [id number] 11/15/2024 15:17:36 TSH, ultra-sen sitive, serum 2024 025 [facility]O [facility] (Centralized Electronic Ordering - All Locations), Patient Can Go To The Location Of Their Choice, [id number] 11/15/2024 15:04:37 microalbu min/creat inine, mass ratio, urine 2024 [facility]O [facility] (Centralized Electronic Ordering - All Locations), Patient Can Go To The Location Of Their Choice, [id number] 11/15/2024 15:04:36 hemoglobi n A1C, fingersti ck 2023 024 In-Office Order, Internal Use Only DO Not Attach Compendium DO Not Attach Compendium, Do Not Delete/merge, [id number] 08/29/2024 14:48:46 Referral diabetic ophthalmo logy referral 2024 025 jg Condon OD, [address] [place], [address], 04/27/2025 13:47:50 Procedures None recorded. Surgeries None recorded. Imaging electroca rdiogram 2023 024 PIPO In-Office Order, Internal Use Only DO Not Attach Compendium DO Not Attach Compendium, Do Not Delete/merge, [id number] 10/13/2024 11:45:20 Medication Orders bupropion HCl XL 150 mg 24 hr tablet, extended release 2023 025 [facility], [address] [place] [address], [id number], 11/15/2024 15:00:24 sertralin e 100 mg tablet [address] [facility]164[facility], [address] [place], [place], [id number], 08/29/2024 14:55:39 cyclobenz aprine 10 mg tablet [address] [facility] #44596, [address] [place], [place], [id number], 08/29/2024 15:06:47 losartan 50 mg tablet 10/22/ 2024 10/22/2 024 [facility]1779, [address] [facility], [place], [place], [id number], 08/29/2024 14:51:51 Patient TargetsNo targets recorded. Patient Instructions Encounter Date Encounter Id Patient Instructions Last Modified By Organization Details Last Modified Time 08/29/2024 [id number] high blood pressure: care instructions Not available 08/29/2024 14:51:44 learning about high blood pressure Not available 08/29/2024 14:51:44 type 2 diabetes: care instructions Not available 08/29/2024 14:48:46 11/15/2024 [id number] high blood pressure: care instructions Not available 11/15/2024 15:17:36 learning about high blood pressure Not available 11/15/2024 15:17:36 type 2 diabetes: care instructions Not available 11/15/2024 15:17:36 04/27/2025 [id number] learning about type 2 diabetes Not available 04/27/2025 10:26:24 high cholesterol : care instructions Not available 04/27/2025 10:26:24 statins: care instructions Not available 04/27/2025 10:26:24 heart-healthy diet: care instructions Not available 04/27/2025 10:26:24 sleep apnea: car e instructions Not available 04/27/2025 10:26:24 parathyroidectom y : before your surgery Not available 04/27/2025 10:26:24 hyperparathyroid i sm: care instructions Not available 04/27/2025 10:26:24 psoriasis: care instructions Not available 04/27/2025 10:26:24 high blood pressure: care instructions Not available 04/27/2025 10:26:24 learning about high blood pressure Not available 04/27/2025 10:26:24 Reason for Referral Diabetic Ophthalmology Refer ral for Type 2 diabetes mellitus Referring Physician: Margo Gonzales, Internal Medicine, Encounter Date: 04/27/2025 Results Created Date Observation Date Name Description Value Unit Range Abnormal Flag Note LastModifiedBy Organization Detail LastModifiedTime 08/29/20 24 08/29/2024 hemog lobin A1C, renan rstic k A1C 5.2 % 4-6 normal Not Available In-Office Order Internal Use Only DO Not Attach Compendium DO Not Attach Compendium, Do Not Delete/merge, [id number] 08/29/2024 13:59:12 11/15/19 25 11/15/2024 hemog lobin A1C, fingmilla rstic k A1C 5.4 % 4-6 normal Not Available In-Office Order Internal Use Only DO Not Attach Compendium DO Not Attach Compendium, Do Not Delete/merge, [id number] 11/15/2024 14:33:30 10/13/20 24 10/13/2024 elect rocar diogr am No observ ation record ed. In-Office Order Internal Use Only DO Not Attach Compendium DO Not Attach Compendium, Do Not Delete/merge, [id number] 11/15/2024 15:02:47 10/13/20 24 elect rocar diogr am No observ ation record ed. [email or web address] In-Office Order Internal Use Only DO Not Attach Compendium DO Not Attach Compendium, Do Not Delete/merge, [id number] 10/13/2024 11:45:24 08/01/20 25 2025 MAMMO , scree harleen, bilat eral No observ ation record ed. [email or web address] [facility] [address], [place], [address], 08/03/2025 11:01:04 08/01/20 25 07/31/2025 MAMMO , scree harleen, digit al, bilat eral PROCED URE: MM Digita l Mammo Screen ing INDICA TION: Screen ing for breast cancer . COMPAR NETO: Back to 021. TECHNI QUE: Full-f ield digita l bilate ral CC and MLO 3D tomosy nthesi s. Comput er-aid ed detect ion (CAD) was utiliz ed in the interp retati on of this study. DENSIT Y: There are scatte red areas of fibrog landul ar densit y. FINDIN GS: No suspic ious masses , microc alcifi cation s, areas of bob ectura l distor tion, or skin thicke harleen to sugges t malign vanna. IMPRES CAESAR: No mammog raphic eviden ce of malign vanna. RECOMM ENDATI ON: Annual mammog raphic screen ing. BIRADS : 1 (Negat lizzie) Lay letter mailed to bahman daily WSN: [id number] Orderi ng Physic roseanna: Neri Gonzales ia Dictat ed By: Misa Sands MD Dictat ed Date/T kari: 4:34 pm Review ed By: Misa Sands MD Signed By: Misa Sands MD Signed Date/T kari: 4:34 pm Transc ribed By: VIOLETA Transc riptio n Date/T kari: 4:23 pm Birads : Bahman t Class: Outpat ient [email or web address] [facility] (Outpt Imaging) [address] [place] [address], [id number], 08/02/2025 09:58:21 Result Notes Documentation Provider Name and Address Organization Details Recorded Time Mammo, Screening, Digital, Bilateral : PROCEDURE: MM Digital Mammo Screening INDICATION: Screening for breast cancer. COMPARISON: Back to 11/23/2020. TECHNIQUE: Full-field digital bilateral CC and MLO 3D tomosynthesis. Computer-aided detection (CAD) was utilized in the interpretation of this study. DENSITY: There are scattered areas of fibroglandular density. FINDINGS: No suspicious masses, microcalcifications, areas of architectural distortion, or skin thickening to suggest malignancy. IMPRESSION: No mammographic evidence of malignancy. RECOMMENDATION: Annual mammographic screening. BIRADS: 1 (Negative) Lay letter mailed to patient WSN: [id number] Ordering Physician: Margo Gonzales Dictated By: Denis Whiteside MD Dictated Date/Time: 08/01/25 4:34 pm Reviewed By: Denis Whiteside MD Signed By: Denis Whiteside MD Signed Date/Time: 08/01/25 4:34 pm Transcribed By: VIOLETA Executive Director Contract Shop Date/Time: 08/01/25 4:23 pm Birads: Patient Class: Outpatient Ramona Dunham [facility] 08/02/2025 09:58:21 Problems Name Problem SNOMED Code Status Onset Date Resolution Date Notes Provider Name and Address Organization Details Recorded Time Hyperten sive disorder 39641545 Completed 08/18/2019 Oli mckeon [facility] 9 13:08:22 Backache 216262520 Completed 09/25/2016 Jodi Villagomez [place] [facility] 6 11:32:30 Body mass index 40+ - severely obese 069322039 Completed 08/18/2019 Helga mckeon [facility] 4 11:07:37 Hypercho lesterol emia 50439991 Active Not Available [facility] 2 18:23:52 Acute upper respirat ory infectio n 73633145 Completed 200705/29/2014 RECORDED 07/04/20 08 9:49AM BY BRIANNA MOFFETT, ESTEFANIAATI ON/ADDEN DUM Not Available [facility] 4 14:21:08 Administ ration of bacteria l and viral vaccine Completed 200705/29/2014 RECORDED 07/04/20 08 9:55AM BY BRIANNA MOFFETT, OFFICE VISIT Not Available [facility] 4 14:21:09 Acute upper respirat ory infectio n 64005302 Completed 200706/18/2014 RECORDED 07/04/20 08 9:49AM BY BRIANNA MOFFETT, ANNOTATI ON/ADDEN DUM Not Available [facility] 4 06:40:19 Administ ration of bacteria l and viral vaccine Completed 200706/18/2014 RECORDED 07/04/20 08 9:55AM BY BRIANNA MOFFETT, OFFICE VISIT Not Available [facility] 4 06:40:19 Pre-surg modesto evaluati on Completed 200805/29/2014 IMPRESSI ON: DEC 11 LAPROSCO PIC PARTIAL HYSTEREC RAY BY DR SHELLY Jeong, FEELS TERRIBLE ON LUPRON WITH INSOMNIA , OVEREATI NG AND WEIGHT GAIN, ACHEY, EDEMA. BP IS IN DECENT CONTROL, CONTINUE MED, IS ALREADY ON HCTZ 25MG, WILL CONTINUE . WILL GET LABS WITH OTHER PREOP PER PT, EKG NL HERE TODAY. NO FAMILY HX OF REACTION TO ANESTHES IA, PT WITH NAUSEA WITH LAST SURGERY, WILL TELL ANESTHES IA PT IS MEDICALL Y CLEARED OR SURGERY. ; RECORDED 01/04/20 09 1:49PM BY RENY BECERRA MA, ESTEFANIAATI ON/ADDEN DUM Not Available [facility] 4 14:21:09 Pre-surg modesto evaluati on Completed 200806/18/2014 IMPRESSI ON: DEC 11 LAPROSCO PIC PARTIAL HYSTEREC RAY BY DR SHELLY Jeong, FEELS TERRIBLE ON LUPRON WITH INSOMNIA , OVEREATI NG AND WEIGHT GAIN, ACHEY, EDEMA. BP IS IN DECENT CONTROL, CONTINUE MED, IS ALREADY ON HCTZ 25MG, WILL CONTINUE . WILL GET LABS WITH OTHER PREOP PER PT, EKG NL HERE TODAY. NO FAMILY HX OF REACTION TO ANESTHES IA, PT WITH NAUSEA WITH LAST SURGERY, WILL TELL ANESTHES IA PT IS MEDICALL Y CLEARED OR SURGERY. ; RECORDED 01/04/20 09 1:49PM BY RENY BECERRA MA, ESTEFANIAATI ON/ADDEN DUM Not Available [facility] 4 06:40:19 Insomnia 053489694 Completed 200805/29/2014 IMPRESSI ON: FROM UPRON, PT IS VERY OVERTIRE D, TX WITH LORAZEPA M; RECORDED 08/09/20 09 2:42PM BY ERMA SANCHEZ ON/ADDEN DUM Not Available [facility] 4 14:21:09 Lumbar sprain 835371126 Completed 200805/29/2014 IMPRESSI ON: USES FLEXERIL PRN, GOES TO CHIROPRA CTOR WHEN NEEDED, TALKED OF GOOD CLASSROOM INSTRUCTOR S, REFILLED FLEXERIL , USES RARELY; RECORDED 08/09/20 09 2:42PM BY MA GLENNA JEREMY, ANNOTATI ON/ADDEN DUM Not Available [facility] 4 14:21:09 Otitis media 54174304 Completed 200805/29/2014 IMPRESSI ON: RIGHT EAR EFFUSION , MILD, GAVE SAMPLE OF NASONEX TO USE FULL BOTTLE; RECORDED 08/09/20 2:42PM BY ERMA SANCHEZ ON/ADDEN DUM DAVID Darling, [facility] 7 10:22:32 Insomnia 337185800 Completed 200806/18/2014 IMPRESSI ON: FROM UPRON, PT IS VERY OVERTIRE D, TX WITH LORAZEPA M; RECORDED 08/09/20 2:42PM BY DAVID LUNA, ESTEFANIAATI ON/ADDEN DUM Not Available [facility] 4 06:40:19 Lumbar sprain 831824090 Completed 200806/18/2014 IMPRESSI ON: USES FLEXERIL PRN, GOES TO CHIROPRA CTOR WHEN NEEDED, TALKED OF GOOD CLASSROOM INSTRUCTOR S, REFILLED FLEXERIL , USES RARELY; RECORDED 08/09/20 09 2:42PM BY ESTEFANIA SANCHEZATI ON/ADDEN DUM Not Available [facility] 4 06:40:19 Essentia l hyperten caesar 32557156 Completed 201105/29/2014 IMPRESSI ON: BP WELL CONTROLL ED, WORK ON WEIGHT LOSS AND EXERCISE ; RECORDED 04/14/20 12 1:20PM BY RENY BECERRA MA, ANNOTATI ON/ADDEN DUM DAVID Espinal, [facility] 0 14:15:40 Essentia l hyperten caesar 39876747 Completed 201106/18/2014 IMPRESSI ON: BP WELL CONTROLL ED, WORK ON WEIGHT LOSS AND EXERCISE ; RECORDED 04/14/20 12 1:20PM BY RENY BECERRA MA, ANNOTATI ON/ADDEN DUM DAVID Espinal, [facility] 0 14:15:40 Screenin g for malignan t neoplasm of breast Completed 201105/29/2014 RECORDED 10/31/20 12 10:53AM BY JAMARI PERALTA MA, ANNOTATI ON/ADDEN DUM Jodi Villagomez MA null, [facility] 7 14:47:40 Screenin g for malignan t neoplasm of cervix Completed 201105/29/2014 RECORDED 10/31/20 12 10:53AM BY JAMARI PERALTA MA, ANNOTATI ON/ADDEN DUM Not Available [facility] 4 14:21:08 Cough 62183708 Completed 201105/29/2014 IMPRESSI ON: FORM URI NO DRIVING ON COUGH MED, USE NEEDED; RECORDED 10/31/20 12 10:53AM BY JAMARI PERALTA MA, ANNOTATI ON/ADDEN DUM Not Available [facility] 4 14:21:08 Screenin g for malignan t neoplasm of breast Completed 201106/18/2014 RECORDED 10/31/20 12 10:53AM BY JAMARI PERALTA MA, ANNOTATI ON/ADDEN DUM Jodi Villagomez MA null, [facility] 7 14:47:40 Screenin g for malignan t neoplasm of cervix Completed 201106/18/2014 RECORDED 10/31/20 12 10:53AM BY JAMARI PERALTA MA, ANNOTATI ON/ADDEN DUM Not Available [facility] 4 06:40:19 Cough 80876815 Completed 201106/18/2014 IMPRESSI ON: FORM URI NO DRIVING ON COUGH MED, USE NEEDED; RECORDED 10/31/20 12 10:53AM BY JAMARI PERALTA MA, ANNOTATI ON/ADDEN DUM Not Available [facility] 4 06:40:19 Bronchit is 82415365 Completed 201205/29/2014 RECORDED 11/25/19 13 10:25AM BY JAMARI PERALTA MA, ANNOTATI ON/ADDEN DUM Not Available [facility] 4 14:21:08 Bronchit is 41844595 Completed 201206/18/2014 RECORDED 11/25/19 13 10:25AM BY JAMARI PERALTA MA, ESTEFANIAATI ON/ADDEN DUM Not Available [facility] 4 06:40:19 Acute pharyngi tis 525269953 Completed 201205/29/2014 IMPRESSI ON: VIRAL. CEPACOL LOZENGES ; RECORDED 01/07/20 13 2:53PM BY ESTEFANIA DARLINGATI ON/ADDEN DUM Not Available [facility] 4 14:21:08 Acute pharyngi tis 928362409 Completed 201206/18/2014 IMPRESSI ON: VIRAL. CEPACOL LOZENGES ; RECORDED 01/07/20 13 2:53PM BY ERMA DARLING ON/ADDEN DUM Not Available [facility] 4 06:40:19 Influenz a vaccine needed 76858036955 06 Completed 201205/29/2014 RECORDED 07/20/20 13 4:12PM BY JODI VILLAGOMEZ, OFFICE VISIT Not Available [facility] 4 14:21:09 Influenz a vaccine needed 38557698999 06 Completed 201206/18/2014 RECORDED 07/20/20 13 4:12PM BY JODI VILLAGOMEZ, OFFICE VISIT Not Available [facility] 4 06:40:19 Patient status finding [id number] Completed 201205/29/2014 RECORDED 10/02/20 13 9:41AM BY ANA CONTE MA, ANNOTMARTINEZ ON/ADDEN DUM DAVID Darling [facility] 6 11:32:19 Malaise and fatigue 786513476 Completed 201205/29/2014 IMPRESSI ON: WILL RULE OUT SLEEP APNEA, PT WITH DAYTIME FATIGUE, PT WILL MAKE APPT; RECORDED 10/02/20 13 9:41AM BY ANA CONTE MA, ERMA ON/ADDEN DUM Not Available [facility] 4 14:21:09 Adult health examinat ion Completed 201205/29/2014 IMPRESSI ON: PAP AND MAMMO UTD, WILL GET MORE ACTIVE, IS WORKING ON WEIGHT LOSS; RECORDED 10/02/20 13 9:41AM BY ANA CONTE MA, ANNOTATI ON/ADDEN DUM Not Available [facility] 4 14:21:09 Benign neoplasm of skin 39438644 Completed 201205/29/2014 IMPRESSI ON: ONEO N BACK THAT NEEDS A CHECK, PT UNDERSTA NDS IT IS IMPORTAN T TO GET IT CHECKED; RECORDED 10/02/20 13 9:42AM BY ANA CONTE MA, ANNOTATI ON/ADDEN DUM Not Available [facility] 4 14:21:09 Patient status finding [id number] Completed 201206/18/2014 RECORDED 10/02/20 13 9:41AM BY ANA CONTE MA, ANNOTATI ON/ADDEN DUM DAVID Darling, DAVID [facility] 6 11:32:19 Malaise and fatigue 950111179 Completed 201206/18/2014 IMPRESSI ON: WILL RULE OUT SLEEP APNEA, PT WITH DAYTIME FATIGUE, PT WILL MAKE APPT; RECORDED 10/02/20 13 9:41AM BY ANA CONTE MA, ANNOTATI ON/ADDEN DUM Not Available [facility] 4 06:40:19 Adult health examinat ion Completed 201206/18/2014 IMPRESSI ON: PAP AND MAMMO UTD, WILL GET MORE ACTIVE, IS WORKING ON WEIGHT LOSS; RECORDED 10/02/20 13 9:41AM BY ANA CONTE MA, ANNOTATI ON/ADDEN DUM Not Available [facility] 4 06:40:19 Benign neoplasm of skin 82556496 Completed 201206/18/2014 IMPRESSI ON: ONEO N BACK THAT NEEDS A CHECK, PT UNDERSTA NDS IT IS IMPORTAN T TO GET IT CHECKED; RECORDED 10/02/20 13 9:42AM BY ANA CONTE MA, ANNOTATI ON/ADDEN DUM Not Available [facility] 4 06:40:19 Acute pancreat itis 060693209 Completed 201312/30/2017 IMPRESSI ON: RESOLVED , HAD GB OUT; RECORDED 01/11/20 14 2:01PM BY JODI VILLAGOMEZ, OFFICE VISIT Oli mckeon [facility] 8 11:31:38 Pure hypercho lesterol emia 110014412 Completed 201308/18/2019 IMPRESSI ON: RANDOM WAS HIGH, CHECK FASTING; RECORDED 01/11/20 14 2:01PM BY JODI VILLAGOMEZ, OFFICE VISIT Oli mckeon [facility] 9 13:08:17 Essentia l hyperten caesar 09488470 Completed 201301/27/2017 IMPRESSI ON: BP IS GREAT CONTINUE MEDS; RECORDED 01/11/20 14 2:06PM BY JODI VILLAGOMEZ, OFFICE VISIT DAVID Espinal, [facility] 0 14:15:40 Otitis media 49554314 Completed 201312/21/2016 RECORDED 01/11/20 14 2:01PM BY JODI VILLAGOMEZ, OFFICE VISIT DAVID Darling, [facility] 7 10:22:32 Patient status finding [id number] Completed 201309/25/2016 RECORDED 01/11/20 14 2:06PM BY JODI VILLAGOMEZ, OFFICE VISIT DAVID Draling, [facility] 6 11:32:19 Obesity 748616815 Completed 201309/25/2016 IMPRESSI ON: ON ADIPEX AND SEES DR LAWRENCE; RECORDED 01/11/20 14 2:35PM BY OLI Quinteros MD, OFFICE VISIT DAVID Darling, [facility] 6 11:32:40 Psoriasi s 1960386 Active 2013 Not Available [facility] 2 18:23:52 Postproc edural state finding Completed 201312/21/2016 IMPRESSI ON: GALLSTON E PANCREAT ITIS, HAD GB OUT, HELAING WELL, NEEDS MROE DILAUDID , WILL DANIEL MOTRIN IS NOT BAD PAIN AND NEEDS WORK NOTE; RECORDED 01/11/20 14 2:01PM BY JODI VILLAGOMEZ, OFFICE VISIT DAVID Darling, [facility] 7 10:22:25 Screenin g for malignan t neoplasm of breast Completed 201301/27/2017 RECORDED 04/11/20 14 10:37AM BY ARTHUR NATH, HISTORIC AL SUMMARY DAVID Darling, [facility] 7 14:47:40 Genital lichen sclerosu s 545549919 Active 2017 Not Available [facility] 2 18:23:52 Sleep apnea 67480066 Active 2017 Not Available [facility] 2 18:23:52 Severe obesity 00171473677 104 Completed 201808/18/2019 Oli mckeon [facility] 9 13:08:25 Uncontro lled type 2 diabetes mellitus 482643998 Completed 201808/18/2019 Oli mckeon [facility] 9 13:08:32 Depressi ve disorder 31469476 Completed 201803/15/2019 Oli mckeon [facility] 1 10:25:57 Essentia l hyperten caesar 68343193 Active 2018 Not Available [facility] 2 18:23:52 Chronic depressi on 833796177 Completed 201808/18/2019 Oli mckeon [facility] 9 13:08:10 Hyperpar athyroid ism 94025171 Active 2019 seen by meredith recinos PA-C [address] [facility] [address], [place], [address] , [facility] 3 12:51:42 Depressi ve disorder 08859315 Completed 202002/07/2021 Oli mckeon [facility] 1 10:25:57 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 2 18:23:52 History of appendec ray 002684292 Active 2021 Oli crawford null, [facility] 2 13:56:06 COVID-19 654635770 Completed 202104/06/2023 Júnior Navarro MA null, [facility] 3 11:18:22 Low back pain 605485798 Active 2022 Margo Gonzales PA-C [address], [place], [address] , [facility] 3 12:54:55 Angiolip haley 700924736 Completed 202304/25/2024 1.1 cm L. renal mass Removal Reason: removed Margo WILBURN-Guru [address], [place], [address] , [facility] 4 11:06:56 Steatoti c liver disease 442073787 Active 2023 Margo GRAYC [address], [place], [address] , [facility] 4 10:13:09 Body mass index 30+ - obesity 922251074 Active 2024 Marog WILBURN-C [address], [place], [address] , [facility] 5 15:04:55 Type 2 diabetes mellitus 87126174 Active 2024 Margo GRAYC [address], [place], [address] , [facility] 5 09:11:09 Type 2 diabetes mellitus without complica tion 407571659 Active 2024 Ce Gigi mckeon [facility] 5 09:37:40 Non-scar ring alopecia 076524703 Active 2024 Ce Gigi mckeon, [facility] 5 09:41:20 Eye / vision finding 819603872 Active 2024 Ce mckeon [facility] 5 09:42:25 Blurring of visual image 604651235 Active 2024 Ce Gigi linda [facility] 5 09:42:43 Problem Notes None recorded. Procedures Surgical History Date Name Laterality Status Provider Name and Address Organization Details Recorded Time 07/31/20 25 Most Recent Mammogram completed Tova Bassett [facility] 08/03/2025 11:00:59 07/31/20 25 Mammogram screening completed Tova Bassett [facility] 08/03/2025 11:00:45 07/04/20 25 diabetic retinopathy screening completed Millicent Whitman [facility] 07/06/2025 14:48:43 04/25/20 24 Diabetic Foot Exam (Monofilament) completed Margo Gonzales PA-C [address] [facility] [address] [facility], [place], [address], [facility] 04/25/2024 11:23:19 01/25/20 24 Diabetic Foot Exam (Monofilament) completed filipe hamlin [facility] 01/25/2024 14:31:46 06/23/20 23 Date of Last Pap Smear completed Ivon Lieberman [facility] 07/05/2023 09:29:37 11/10/19 23 diabetic retinal eye exam completed Ivon Lieberman [facility] 11/13/2022 12:23:23 09/01/20 22 laparoscopic emergency appendectomy completed Darren Gonzales PA-C [address], [place], [address], [facility] 10/06/2022 09:30:08 09/01/20 22 Appendectomy completed Júnior Navarro MA [facility] 04/06/2023 11:21:03 09/01/20 22 Appendectomy completed Jodi Villagomez MA [facility] 10/25/2023 10:30:05 05/01/20 21 Date of Last Colonoscopy completed Maral Vega [facility] 05/08/2021 15:21:09 05/01/20 21 Colonoscopy completed Mackenzie Bustillos LPN [facility] 08/29/2024 14:11:09 Cholecystectomy completed Jodi Villagomez MA [facility] 07/10/2015 14:53:08 Hysterectomy completed Júnior Navarro MA [facility] 04/06/2023 11:19:53 Imaging Results None recorded. Procedure Notes None recorded. Medical Equipment None Reported. Allergies Allergen ID Allergen Name Allergen Category Reaction Reaction Severity Criticality Documentation Date Start Date Code Code System Note Provider Name and Address Organization Details Recorded Time 9248 lisinopri l medicatio n cough Not available Not available 05/22/20142013 89738 RxNorm Not Available [facility] 2 18:23:51 9249 acetamino phen / oxycodone medicatio n hives Not available Not available 05/22/20142013 30652 3 RxNorm Not Available [facility] 2 18:23:51 Medications Name Sig Start Date Stop Date Status Note LastModified by Organization Details LastModified Time losartan 50 mg tablet TAKE 1/2 TABLET BY MOUTH EVERY DAY active Not Available Not Available No t Available Hydromet 5 mg-1.5 mg/5 mL oral solution 07/31 completed Not Available Not Available Not Available cyclobenz aprine 10 mg tablet TAKE 1 TABLET BY MOUTH AT BEDTIME NEEDED active Not Available Not Available No t Available atorvasta tin 40 mg tablet TAKE 1 TABLET DAILY (DOSE INCREASE ) 2024 active Not Available Not Available Not Avai lable metformin 500 mg tablet TAKE 1 TABLET BY MOUTH EVERY NIGHT AT BEDTIME 10/25 completed low A1c. Not Available Not Available Not Available atorvasta tin 20 mg tablet TAKE 1 TABLET BY MOUTH DAILY 10/27 completed Not Available Not Available Not Available leuprolid e 3.75 mg intramusc ular syringe kit MONTHLY active RECORDED 08/09/20 09 4:00PM BY OLI Quinteros MD, ANNOTATI ON/ADDEN DUM; Not Available Not Available Not Available polyethyl melonie glycol 3350 17 gram oral powder packet DISSOLVE 1 PACKET IN 8 [employer]. DO 7 PACKETS ON 06/27/24 AND 7 PACKETS ON 06/28/24 DIRECTED 08/29 completed Not Available Not Available Not Available azithromy chalino 250 mg tablet QD 12/21 completed Not Available Not Available Not Available ibuprofen 800 mg tablet Q 6HRS PRN PAIN 05/02 completed RECORDED 05/20/20 11 3:56PM BY OLI Quinteros MD, MEDICATI ON AUTO-KIMMIE CTIVATIO N; Not Available Not Available Not Available nystatin 100,000 unit/gram topical ointment apply thin layer 01/10 completed Not Available Not Available Not Available fluconazo le 150 mg tablet 11/16 completed Not Available Not Available Not Available benzonata te 200 mg capsule TID PRN COUGH 11/13 completed RECORDED 11/25/19 13 10:24AM BY OLI Quinteros MD, MEDICATI ON AUTO-KIMMIE CTIVATIO N; Not Available Not Available Not Available sucralfat e 100 mg/mL oral suspensio n SHAKE LIQUID AND TAKE 10 ML BY MOUTH TWICE DAILY 10/13 completed Not Available Not Available Not Available ondansetr on HCl 4 mg tablet TAKE 1 TABLET BY MOUTH EVERY 6 HOURS NEEDED FOR NAUSEA OR VOMITING 08/29 completed Not Available Not Available Not Available prednison e 20 mg tablet 12/21 completed Not Available Not Available Not Available sertralin e 100 mg tablet TAKE 1 TABLET DAILY 2024 active Not Available Not Available Not Avai lable valsartan 80 mg tablet Take 2 tablets every day by oral route for 90 days. 05/25 completed Not Available Not Available Not Available metronida zole 500 mg tablet TAKE 1 TABLET BY MOUTH THREE TIMES DAILY FOR 5 DAYS 09/09 completed Not Available Not Available Not Available phentermi ne 37.5 mg tablet QD 2013 active RECORDED 01/11/20 14 2:23PM BY OLI Quinteros MD, OFFICE VISIT; Not Available Not Available Not Available amlodipin e 5 mg tablet TAKE 1 TABLET BY MOUTH EVERY DAY DIRECTED 04/06 completed Not Available Not Available Not Available peg-elect rolyte solution 420 gram oral solution MIX AND DRINK 8 OUNCES BY MOUTH DIRECTED . FOLLOW DIRECTIO NS GIVEN BY DOCTORS OFFICE 06/10 completed Not Available Not Available Not Available glyburide 2.5 mg-metfor min 500 mg tablet Take 1 tablet twice a day by oral route for 30 days. 03/15 completed Not Available Not Available Not Available nystatin- triamcino lone 100,000 unit/gram -0.1 % topical ointment apply thin layer prn 11/25 completed Not Available Not Available Not Available vitamin A 3,000 mcg (10,000 unit) capsule TAKE 1 CAPSULE BY MOUTH EVERY DAY active Not Available Not Available No t Available ciproflox acin 0.3 % eye drops 11/16 completed Not Available Not Available Not Available amlodipin e 10 mg tablet TAKE 1 TABLET DAILY 08/29 completed 08/29/24 - has been off per surgeon/ sleeve sean Not Available Not Available Not Available benzonata te 100 mg capsule TAKE 1 CAPSULE BY MOUTH THREE TIMES DAILY FOR 10 DAYS 10/27 completed Not Available Not Available Not Available desoximet asone 0.25 % topical ointment APPLY TO HAND RASH TWICE DAILY. NOT TO EXCEED 2 WEEKS AT A TIMD active Not Available Not Available No t Available pantopraz ole 40 mg tablet,de layed release TAKE 1 TABLET BY MOUTH DAILY 10/13 completed Not Available Not Available Not Available nystatin 100,000 unit/gram topical cream 11/16 completed Not Available Not Available Not Available losartan 25 mg tablet TAKE 3 TABLETS DAILY DIRECTED 11/13 completed Not Available Not Available Not Available mometason e 50 mcg/actua tion nasal spray [place] 2 sprays every day by intranas al route for 30 days. 12/21 completed Not Available Not Available Not Available gabapenti n 300 mg capsule Take 1 capsule twice a day by oral route for 30 days. 03/15 completed Not Available Not Available Not Available clobetaso l 0.05 % topical ointment apply thin layer 01/10 completed Not Available Not Available Not Available irbesarta n 150 mg tablet TAKE 1 TABLET BY MOUTH EVERY DAY 12/02 completed Not Available Not Available Not Available lorazepam 1 mg tablet one po Q HS PRN INSOMNIA 05/20 completed Not Available Not Available Not Available ibuprofen 600 mg tablet FOUR TIMES DAILY, NEEDED SORE THROAT 12/02 completed RECORDED 01/07/20 13 2:51PM BY AKILA NYE, MEDICATI ON AUTO-KIMMIE CTIVATIO N; Not Available Not Available Not Available fluocinon dawson 0.05 % topical solution APPLY TOPICALL Y TO THE SCALP RASH 1 TO 2 TIMES DAILY NEEDED FOR RASH active Not Available Not Available No t Available levofloxa chalino 750 mg tablet TAKE 1 TABLET BY MOUTH EVERY 24 HOURS FOR 5 DAYS 09/09 completed Not Available Not Available Not Available Vitamin B-1 100 mg tablet TAKE 1 TABLET BY MOUTH DAILY 06/30 completed Per [place] [facility] summary Not Available Not Available Not Available betametha sone dipropion ate 0.05 % topical ointment BERTRAND THIN LAYER EXT AA QD 02/06 completed Not Available Not Available Not Available cefdinir 300 mg capsule 07/31 completed Not Available Not Available Not Available losartan 100 mg tablet TAKE 1 TABLET BY MOUTH EVERY DAY.. 10/13 completed 08/29/24 - has been off per surgeon sleeve sean Not Available Not Available Not Available sertralin e 50 mg tablet 10/25 completed Not Available Not Available Not Available cholecalc iferol (vitamin D3) 125 mcg (5,000 unit) capsule TAKE ONE CAPSULE BY MOUTH EVERY DAY 06/30 completed Per [place] d/c summary Not Available Not Available Not Available phentermi ne 37.5 mg capsule Take 1 capsule every day by oral route. 06/[address] ed [address] Lazaro. Not Available Not Available Not Available amoxicill in 875 mg-potass ium clavulana te 125 mg tablet TWO TIMES DAILY 10/12 completed RECORDED 01/11/20 14 2:00PM BY VALERIE ACOSTA PA-C, MEDICATI ON AUTO-KIMMIE CTIVATIO N; Not Available Not Available Not Available valsartan 160 mg tablet TAKE 1 TABLET BY MOUTH EVERY DAY 12/30 completed Not Available Not Available Not Available valsartan 160 mg-hydroc hlorothia zide 25 mg tablet TAKE 1 TABLET DAILY 09/24 completed Not Available Not Available Not Available dietary supplemen t capsule Take 1 capsule every day by oral route. 01/29 completed Isotonic drink Not Available Not Available Not Available azithromy chalino 500 mg tablet DAILY 12/27 completed RECORDED 01/04/20 09 1:49PM BY JÚNIOR ZULETA MD, MEDICATI ON AUTO-KIMMIE CTIVATIO N; Not Available Not Available Not Available codeine-g uaifenesi n oral syrup Q 8HRS PRN COUGH 10/31 completed RECORDED 10/31/20 12 11:02AM BY JAMARI PERALTA MA, OFFICE VISIT;DO NOT TAEK ADN DRIVE Not Available Not Available Not Available metformin ER 750 mg tablet,ex tended release 24 hr TK 1 T PO QD 06/26 completed Not Available Not Available Not Available bupropion HCl XL 300 mg 24 hr tablet, extended release TAKE 1 TABLET BY MOUTH EVERY DAY 2024 active Not Available Not Available Not Avai lable bupropion HCl XL 150 mg 24 hr tablet, extended release TAKE 1 TABLET BY MOUTH EVERY DAY active Not Available Not Available No t Available fluocinol one 0.01 % scalp oil and shower cap APPLY TO DAMP SCALP EVERY NIGHT AT BEDTIME. WASH OUT EVERY MORNING. MAY USE ON EARS NEEDED active Not Available Not Available No t Available hydromorp damion Q 8HRS PRN PAIN 04/09 completed RECORDED 04/13/20 11 1:48PM BY OLI Quinteros MD, MEDICATI ON AUTO-KIMMIE CTIVATIO N; Not Available Not Available Not Available Guiatuss AT BEDTIME 11/07 completed RECORDED 11/25/19 13 10:24AM BY OLI Quinteros MD, MEDICATI ON AUTO-KIMMIE CTIVATIO N; Not Available Not Available Not Available ProAir HFA 90 mcg/actua tion aerosol inhaler 2 puffs inhalati on q 4 hours 01/27 completed Not Available Not Available Not Available cholecalc iferol (vitamin D3) 50 mcg (2,000 unit) capsule TAKE 1 CAPSULE BY MOUTH DAILY active Not Available Not Available No t Available ProChambe r 01/27 completed Not Available Not Available Not Available Virtussin AC 10 mg-100 mg/5 mL oral liquid Take 10 mL every 4 hours by oral route as needed for 10 days. 01/27 completed Not Available Not Available Not Available Fluzone Quad (PF) 60 mcg (15 mcg x 4)/0.5 mL IM syringe active Not Available Not Available Not Available Trulicity 1.5 mg/0.5 mL subcutane ous pen injector 01/19 completed Not Available Not Available Not Available Trulicity 0.75 mg/0.5 mL subcutane ous pen injector Inject 0.5 mL every week by subcutan eous route for 30 days. 09/24 completed Not Available Not Available Not Available Fluvirin 6950-3265 (PF) 45 mcg(15 mcg x3)/0.5 mL intramusc ular syringe 12/30 completed Not Available Not Available Not Available Ozempic 0.25 mg or 0.5 mg (2 mg/1.5 mL) subcutane ous pen injector INJECT 0.5MG EVERY WEEK BY SUBCUTAN EOUS ROUTE 06/19 completed Not Available Not Available Not Available Afluria Quad (PF) 60 mcg (15 mcg x 4)/0.5 mL IM syringe 11/16 completed Not Available Not Available Not Available FreeStyle Regino 2 Sensor kit 1 sensor for every 2 weeks. E11.09 active Not Available Not Available No t Available Trulicity 3 mg/0.5 mL subcutane ous pen injector INJECT 0.5 ML UNDER THE SKIN EVERY WEEK (DOSE INCREASE ) 11/13 completed Not Available Not Available Not Available Mounjaro 7.5 mg/0.5 mL subcutane ous pen injector 10/25 completed Not Available Not Available Not Available Mounjaro 5 mg/0.5 mL subcutane ous pen injector Inject 5 mg every week by subcutan eous route for 28 days. 02/25 completed wants 7.5mg Not Available Not Available Not Available Mounjaro 10 mg/0.5 mL subcutane ous pen injector Inject 10 mg every week by subcutan eous route for 90 days. 07/20 completed Not Available Not Available Not Available Mounjaro 12.5 mg/0.5 mL subcutane ous pen injector PLEASE UPDATE FOR ANY MEDICATI ON CHANGE 06/30 completed Per d/c summary summary [place] 06/30/22 04 Not Available Not Available Not Available FreeStyle Regino 3 Sensor device 01/24 completed Not Available Not Available Not Available Vitals Date Recorded Body height Body mass index (BMI) Body weight Heart rate Oxygen saturation Oxygen saturation in Arterial blood by Pulse oximetry Body temperature Systolic And Diastolic Provider Name and Address Organization Details Last Updated DateTime 5 158.75 cm 37.3 kg/m2 64391.7 2 g 70 /min 98 % 98 % 98.2 [degF] 135/77 mm[Hg] Mackenzie Bustillos LPN [facility] 5 14:40:42 Date Recorded Body height Body mass index (BMI) Body weight Oxygen saturation Oxygen saturation in Arterial blood by Pulse oximetry Heart rate Body temperature Systolic And Diastolic Provider Name and Address Organization Details Last Updated DateTime 5 158.75 cm 36.6 kg/m2 08065.0 5 g 99 % 99 % 61 /min 97.7 [degF] 125/75 mm[Hg] Jodi Villagomez MA [facility] 5 08:33:36 Date Recorded Systolic And Diastolic Provider Name and Address Organization Details Last Updated DateTime 08/29/2024 144/86 mm[Hg] Margo Gonzales PA-C [address] [address], [place], [address], [facility] 08/29/2024 14:49:56 Date Recorded Body height Body mass index (BMI) Body weight Heart rate Oxygen saturation Oxygen saturation in Arterial blood by Pulse oximetry Body temperature Systolic And Diastolic Provider Name and Address Organization Details Last Updated DateTime 4 158.75 cm 38.2 kg/m2 01547.3 8 g 66 /min 97 % 97 % 98.3 [degF] 148/76 mm[Hg] Mackenzie Bustillos LPN [facility] 4 14:10:52 Date Recorded Body height Body mass index (BMI) Body weight Heart rate Oxygen saturation Oxygen saturation in Arterial blood by Pulse oximetry Body temperature Systolic And Diastolic Provider Name and Address Organization Details Last Updated DateTime 4 158.75 cm 37.3 kg/m2 29892.6 2 g 77 /min 98 % 98 % 98.2 [degF] 133/77 mm[Hg] Ro Alcantar MA [facility] 4 11:06:05 Social History Question Answer Notes LastModified by Organizat ion Details LastModified Time Tobacco Smoking Status Never Smoker DAVID Darling, [facility] 07/10/2015 14:55:58 Do You Have An Advance Directive? No Information not available 10/25/2023 Is Blood Transfusion Acceptable In An Emergency? Yes [email or web address] Information not available 07/10/2015 What Is Your Level Of Caffeine Consumption? Occasional Information not available 09/24/2017 How Much Tobacco Do You Chew? None Information not available 04/23/2020 In The 14 Days Before Symptom Onset, Have You Had Close Contact With A Laboratory-confir med COVID-19 While That Case Was Ill? No Information not available 10/25/2023 In The 14 Days Before Symptom Onset, Have You Had Close Contact With A Person Who Is Under Investigation For COVID-19 While That Person Was Ill? No Information not available 10/25/2023 Have You Been To An Area Known To Be High Risk For COVID-19? Yes Information not available 10/25/2023 What Type Of Diet Are You Following? REGULAR [email or web address] Information not available 07/10/2015 Which Illicit Or Recreational Drugs Have You Used? None Information not available 09/24/2017 Live Alone Or With Others? Alone Information not available 10/25/2023 Do You Take Precautions To Prevent Distracted Driving? Yes [email or web address] Information not available 07/10/2015 How Often Do You Need To Have Someone Help You When You Read Instructions, Pamphlets, Or Other Written Material From Your Doctor Or Pharmacy? Never [email or web address] Information not available 08/11/2021 Have You Served In The ? No Information not available 07/31/2016 Have You Or Anyone In Your Household Had Any Of The Following Symptoms In The Last 14 Days: Sore Throat, Cough, Chills, Body Aches For Unknown Reasons, Shortness Of Breath For Unknown Reasons, Loss Of Smell, Loss Of Taste, Fever At Or Greater Than 100 Degrees Fahrenheit? No [email or web address] Information not available 05/28/2020 Are You Or Anyone In Your Household A Health Care Provider Or Emergency Responder? No [email or web address] Information not available 05/28/2020 To The Best Of Your Knowledge Have You Been In Close Proximity To Any Individual Who Tested Positive For COVID-19? No [email or web address] Information not available 05/28/2020 Have You Recently Traveled To A COVID-19 High Risk Area Or Gathering In The Last 10 Days? No Information not available 01/29/2021 What Was The Date Of Your Most Recent Tobacco Screening? 04/27/2025 [email or web address] Information not available 04/27/2025 How Many Children Do You Have? 0 [email or web address] Information not available 02/25/2022 Do You Use Your Seat Belt Or Car Seat Routinely? No [email or web address] Information not available 02/25/2022 Seat Belts Used Routinely Yes Information not available 10/25/2023 Are You Sexually Active? No Information not available 09/24/2017 Smoke Alarm In Home Yes Information not available 10/25/2023 Do You Have Smoke And Carbon Monoxide Detectors In Your Home? Yes [email or web address] Information not available 02/25/2022 At What Age Did You Start Smoking Tobacco? 0 Information not available 08/11/2021 Are You Passively Exposed To Smoke? No Information no t available 04/23/2020 How Much Tobacco Do You Smoke? No Information not available 04/23/2020 Do You Use Sunscreen Routinely? Yes [email or web address] Information not available 07/10/2015 How Many Years Have You Smoked Tobacco? 0 Information not available 08/11/2021 Sex: Unknown Functional Status Question Answer Note LastModified by Organizat ion Details LastModified Time Do you use any illicit or recreational drugs? No Information not available 10/25/2023 What is your level of alcohol consumption? Occasional [email or web address] Information not available 07/10/2015 Do you or have you ever used smokeless tobacco? Never used smokeless tobacco [email or web address] Information not available 11/24/2019 Are you currently employed? Yes [email or web address] Information not available 07/10/2015 Are you able to walk independently without assistance or assistive devices? [email or web address] Information not available 10/25/2023 Are you able to care for yourself independently? 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 Never used electronic cigarettes Information not available 10/25/2023 What is your exercise level? Occasional [email or web address] Information not available 02/25/2022 Mental Status None recorded. Family History Relationship Description Onset Age of this Age Resolved Age Notes LastModified by Organization Details LastModified Time Mother Hypertensive disorder [email or web address] Not available 07/10 14:54:24 Mother Sleep disorder Not available 2020 15:29:13 Father Hypertensive disorder [email or web address] Not available 02/25 09:04:10 Brother Sleep disorder Not available 2020 15:29:13 Notes:No FH of breast or col on cancer Medical History Condition Response Gout N Other N Kidney Stones N Blood Diseases N Hyperthyroidism N Breast Cancer N Hypothyroidism N Lung Disease N Depression Y COPD N Defects or Inherited Disease N Anesthesia Complications N Headaches/Migraines N Anxiety Disorder N Varicose Veins N Obesity Y Vision or Eye Problems N Arthritis N Head Injury/Concussion N Infertility N Polyps N Congenital Anomalies N Acid Reflux (GERD) N Cancer N Stroke N ADHD N Endometriosis N High Cholesterol N Liver Disease N Fibromyalgia N Kidney Disease N Heart Problems N Ear or Hearing Problems N Hospitalizations N Thyroid Problems N GI Problems N Acne N Eating Disorder N Skin Problems N Anemia N Constipation N Bladder Problems N Mental Illness N Diabetes Y Ovarian Cancer N Blood Transfusions N Seizures/Epilepsy N Tuberculosis N AIDS/HIV N Congestive Heart Failure (CHF) N Eczema N Abuse/Domestic Violence N Diverticulitis N Asthma N Allergies N Reflux/GERD N Hepatitis N Pulmonary Embolism N Hypertension Y Chicken Pox N Autism Spectrum Disorder (ASD) N Osteoporosis N Gynecological History Statement/Question Response Date of Last Pap Smear 06/23/2023 Date of Last Colonoscopy 05/01/2021 Most Recent Mammogram 07/31/2025 Obstetrics History GPAL:G 0 P 0 0 0 0 Immunizations Vaccine Type Date Status Note Provider Nam e and Address Organization Details Recorded Time Influenza, split virus, trivalent, PF 8 completed Not Available [facility] 07/27/2022 18:23:52 COVID-19, mRNA, LNP-S, PF, 100 mcg/0.5mL dose or 50 mcg/0.25mL dose 1 completed Not Available [facility] 07/27/2022 18:23:52 COVID-19, mRNA, LNP-S, PF, 100 mcg/0.5mL dose or 50 mcg/0.25mL dose 1 completed Not Available [facility] 07/27/2022 18:23:52 Influenza, split virus, quadrivalent, PF 5 completed Not Available [facility] 11/25/2019 02:22:02 Influenza, split virus, quadrivalent, PF 8 completed Not Available [facility] 07/27/2022 18:23:52 COVID-19, mRNA, LNP-S, PF, 100 mcg/0.5mL dose or 50 mcg/0.25mL dose 1 completed Not Available [facility] 07/27/2022 18:23:52 Influenza, MDCK, quadrivalent, PF 2 completed Júnior Navarro MA [facility] 09/09/2022 09:03:17 Influenza, split virus, quadrivalent, PF 6 completed Not Available [facility] 11/25/2019 02:22:04 Tdap 8 completed Not Available [facility] 11/25/2019 02:21:48 Influenza, split virus, quadrivalent, PF 9 completed Not Available [facility] 11/25/2019 02:22:10 Influenza, split virus, quadrivalent, PF 0 completed Oli mckeon, [facility] 09/04/2020 16:04:26 Influenza, split virus, quadrivalent, PF 1 completed DAVID Darling, [facility] 08/15/2021 10:46:14 Influenza, split virus, quadrivalent, PF 3 completed Margo Gonzales PA-C [address] [address], [place], [address], [facility] 07/20/2023 12:05:35 Influenza, split virus, trivalent, preservative 6 completed Not Available [facility] 07/27/2022 18:23:52 Tdap 8 completed Not Available [facility] 07/27/2022 18:23:52 Influenza, split virus, trivalent, preservative 0 completed Not Available [facility] 07/27/2022 18:23:52 influenza, seasonal, intradermal, preservative free 3 completed Not Available [facility] 07/27/2022 18:23:52 influenza, seasonal, intradermal, preservative free 3 completed Not Available [facility] 07/27/2022 18:23:52 Influenza, split virus, trivalent, PF 4 completed Margo Gonzales PA-C [address] [address], [place], [address], [facility] 08/29/2024 16:46:24 Past Encounters Encounter ID Performer Location Encounter Start Date Encounter Closed Date Diagnosis/Indication Diagnosis SNOMED-CT Code Diagnosis ICD10 Code Diagnosis IMO Codes Diagnosis Note [id number] [facility] [address] [facility] [place] [address] 06/01/2007 00:00:00 [id number] autoEComm erce [address] [facility], [address] [place] [address] 09/01/2007 00:00:00 [id number] autoEComm erce [address] [facility] [address] [place] [address] 12/14/2007 00:00:00 [id number] autoEComm erce [address] [facility] [place] [address] 02/21/2008 00:00:00 [id number] autoEComm erce [address] [place] [address] 07/04/2008 00:00:00 [id number] autoEComm erce [address] [facility],[address] [place] [address] 11/23/2008 00:00:00 [id number] autoEComm erce [address] [facility],[address] [place] [address] 12/22/2008 00:00:00 [id number] autoEComm erce [address] [facility],[address] [place] [address] 01/04/2009 00:00:00 [id number] autoEComm erce [address] [facility] [place] [address] 08/09/2009 00:00:00 [id number] autoEComm erce [address] [facility],[address] [place] [address] 12/11/2009 00:00:00 [id number] autoEComm erce [address] [facility],[address] [place] [address] 04/10/2010 00:00:00 [id number] autoEComm erce [address] [facility],[address] [place] [address] 08/14/2010 00:00:00 [id number] autoEComm erce [address] [facility],[address] [place] [address] 12/05/2010 00:00:00 [id number] autoEComm erce [address] [facility],[address] [place] [address] 01/20/2011 00:00:00 [id number] autoEComm erce [address] [facility],[address] [place] [address] 04/02/2011 00:00:00 [id number] autoEComm erce [address] [facility],[address] [place] [address] 05/20/2011 00:00:00 [id number] autoEComm erce [address] [facility],[address] [place] [address] 12/14/2011 00:00:00 [id number] autoEComm erce [address] [facility],[address] [place] [address] 04/14/2012 00:00:00 [id number] autoEComm erce [address] [facility],[address] [place] [address] 10/31/2012 00:00:00 [id number] autoEComm erce [address] [facility],[address] [place] [address] 11/25/2012 00:00:00 [id number] autoEComm erce [address] [facility],[address] [place] [address] 01/06/2013 00:00:00 [id number] autoEComm erce [address] [facility],[address] [place] [address] 07/20/2013 00:00:00 [id number] autoEComm erce [address] [facility],[address] [place] [address] 10/02/2013 00:00:00 [id number] autoEComm erce [address] [place] [address],[address] [place] [address] 01/10/2014 00:00:00 [id number] Oli crawford MD Main Office [address] [place] [address] 07/10/2015 14:19:32 07/10/2015 15:35:13 Adult health examination [id number] all screening is utd, needs to work on diet and get active. Hypertensive disorder 73632645 well controlled check labs Backache [id number] flexeri l prn Body mass index 40+ - severely obese 865978217 Needs infl uenza immunization 864394300 Hypercholesterolemia 12454985 high in the past, check fasting [id number] Oli crawford MD Main Office [address] [facility] [address] [place] [address] 07/31/2016 14:23:11 07/31/2016 15:16:57 Adult health examination 738558532 Z00.00 all screening is utd, needs to work on diet and get active. 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, moderate 440515427 F32.1 pt is depressed, wellbutrin really helped int he past, restart 2 month followup, up the dose then [id number] Oli crawford MD Main Office [address] [address] [place] [address] 09/25/2016 11:19:35 09/25/2016 12:01:26 Major depression single episode, in partial remission 00359170 F32.4 much better on wellbutrin , very responsive to med continue, pt feels dose is good for now Posterior rhinorrhea 758 75751 R09.82 nasal steroid Cough 12738389 R05 from pnd, tx with robitussin AC to help get good sleep and an accurate sleep study [id number] Oli crawford MD Main Office [address] [address] [place] [address] 12/21/2016 10:19:43 12/21/2016 11:37:15 Cough 16056337 R05 post infectious , I will refill cough med withc odeine Wheezing 77768089 R06.2 nl spirometry , less cough with UD, pt to use ventolin at home with spacer to pt today Morbid obesity 544181881 E66.01 no need for more prednisone , pt to work on exercise, weight los [id number] Oli crawford MD Main Office [address] [facility] [address] [place] [address] 01/27/2017 14:40:00 01/27/2017 15:37:30 Hypertensive disorder 28755761 I10 well controlled check labs Major depr ession single episode, in partial remission 28931576 F32.4 feeling bit better but would like to increase dose, not fully treated increase to 300mg a day Body mass index 40+ - severely obese 616192324 Z68.43 lost some weight, keep at it Obesity 493405543 E66.9 [id number] Oli crawford MD Main Office [address] [facility] 207 [facility] [place] [address] 05/07/2017 12:45:23 05/07/2017 13:37:08 Major depression single episode, in partial remission 35920151 F32.4 much better on 300mg of wellbutrin and side effectsl essening, will message me if not feeling the side effects resolve, otherwise stay on Sleep apnea 43170418 G47 .30 trying the cpap but nly 2 hours at at time, will see sleep medicine folks in 06/24 Hypertensive disorder 38 818173 I10 well controlled check labs Body mass index 40+ - severely obese 970634637 Z68.43 lost some weight, keep at it [id number] Oli crawford MD Main Office [address] [facility] 207 [place] [address] 09/24/2017 13:49:08 09/24/2017 14:59:30 Adult health examination 105095033 Z00.00 all screening is utd, needs to work on diet and get active. Single stephan or depressive episode, in full remission 449539969 F32.5 continue wellbutrin , helps pt, had some blurry vision bilaterall y but it resolved, no vision concerns or eye pain Insomnia 653639142 G47.0 0 trial of prn lorazepam, pt with very poor sleep quality, up every hour, really working on CPAP trial of lorazepam Skin lesion 45176850 L98 .9 on back, pt to set up derm appt [id number] Oli crawford MD Main Office [address] 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 [address] [place] [address] 05/20/2018 12:51:52 05/20/2018 13:43:26 Hypertensive disorder 32112983 I10 BP is well controlled on 160mg a day, will stay on this dose Low back pain 856915201 M54.5 pt with low back pain, uses flexeril as needed at night, should avoid doing any restraint training or physical restraints due to her back pain. Administra tion of viral vaccine 55728921 Z23 Major depr ession in remission 71486706 F32.5 mood well treted on meds, continue Sleep apnea 80842294 G47 .30 CPAP is better, is staying on [id number] Oli crawford MD Main Office [address] 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 [address] [place] [address] 11/25/2018 15:12:32 11/25/2018 16:39:44 Uncontrolled type 2 diabetes mellitus 628032724 E11.65 Total time spent teaching and coordinati ng diabetic care 45 minutes. Basic physiology of Type II Diabetes Mellitus was reviewed. Glucose records were reviewed. Pt. was instructed on use of new glucose monitor device , [employer] Regino system Goal for fasting glucose is 80-130 and 1-2 hrs after the meal under 180. Pt. was instructed on 1500 jaja ADA diet and given 7 day sample menus to use at home. Pt. will be seeing Dr. Larose for weight management . Pt. was advised to start exercise activity by walking 30 min at least 3 times weekly and increase weekly or by weekly to 4-6 day per week. If unable to walk , pt. should use other exercise modalities /equipment that is stationary at home or in the gym for that amount of time weekly or water exercises. Start Glyburide metfromin 2.5-500 mg BID with food. Possible side effects of medication were reviewed. F/u with log in 4 weeks. Plan on starting GLP-1 hormone which was also discussed today. Body mass index 30+ - obesity 027319713 Z68.42 Severe obesity 497564329 1 9104 E66.01 [id number] Oli crawford MD Main Office [address] [facility] 207 [facility] [place] [address] 01/10/2019 13:17:08 01/10/2019 14:18:39 Uncontrolled type 2 diabetes mellitus 294973761 E11.65 Much improved overall diabetic control. Continue current meds, testing via Regino CGM personal system and continue weight management program. Repeat labs. PT. is advised to test BP at and let me know if over 140/90. Consider starting ACEI. F/u 3 m. [id number] Oli crawford MD Main Office [address] [facility] [address] [place] [address] 03/15/2019 13:23:52 03/15/2019 14:01:12 Hypertensive disorder 86518944 I10 BP well controlled ocntinue meds Body mass index 40+ - severely obese 919644658 Z68.42 lost some weight, keep at it Uncontroll ed type 2 diabetes mellitus 928397369 E11.65 A1C down to 7.9, had been in 13 range, weight loss has stopped for a bit, pt is very disappoint ed with not losing weight, I explained the pathophysi ology and she understood why her weight was stable. followup with Margo, stay on metformin Major depr ession single episode, in partial remission 38920345 F32.4 some depression flared since holidays, pt to consider adding a second med, may call to add med if not improving Severe obesity 838961398 1 9104 E66.01 [id number] Pradeep Villareal MD Main Office [address] [facility] [address] [place] [address] 04/12/2019 12:51:39 04/12/2019 14:08:20 Uncontrolled type 2 diabetes mellitus 909179911 E11.65 Much improved overall diabetic control. A1c is 6.3%. Continue current meds, testing via [employer] CGM 2 weeks on and 2 weeks off personal system and continue weight management program. F/u 3-4 m. Essential hypertension 28123645 I10 Start ARB as directed. Check BP weekly at wk and return for f/u with BP log in 4-6 weeks. Repeat BMP prior to the office visit. Body mass index 30+ - obesity 304355374 Z68.42 Severe obesity 596263553 1 9104 E66.01 [id number] Pradeep Villareal MD Main Office [address] [address] [place] [address] 05/29/2019 13:19:13 05/29/2019 14:11:47 Type 2 diabetes mellitus without complication 676208764 E11.9 excellent diabetic control. Continue exercise and diet and metformin. Continue CGM use. F/u as scheduled. [id number] Oli crawford MD Main Office [address] [facility] [address] [place] [address] 08/18/2019 12:35:31 08/18/2019 13:21:50 Essential hypertension 31872275 I10 well controlled . Needs infl uenza immunization 708750627 Z23 Hypercholesterolemia 136 99446 E78.00 check fasting, goal for LDL is less than 100, pt is open to meds if needed Sleep apnea 48562771 G47 .30 using CPAP, it disrupts sleep but she knows important to use Type 2 joe betes mellitus without complication 240334358 E11.9 followed by Margo, good control Body mass index 40+ - severely obese 269183922 E66.01 Z68.42 lost some weight, keep at it is going to try hypnosis Major depr ession single episode, in partial remission 69746062 F32.4 mood pretty stable, more worry Anxiety 05292706 F41.9 excessive worry, add sertraline [id number] Pradeep Villareal MD Main Office [address] [facility] 207 [facility] [place] [address] 10/27/2019 12:52:11 10/27/2019 13:37:12 Type 2 diabetes mellitus without complication 939635915 E11.9 excellent diabetic control. Continue exercise and diet and metformin. Continue CGM use. F/u as scheduled. Morbid obesity 871440360 E66.01 Body mass index 40+ - severely obese 682358225 Z68.41 continue hypnosis and no carb diet and exercise. [id number] Oli crawford MD Main Office [address] 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 Essential hypertension 58839688 I10 well controlled . Type 2 joe betes mellitus without complication 641120314 E11.9 followed by Margo, good control Sleep apnea 19832694 G47 .30 using CPAP, it disrupts sleep but she knows important to use Hypercholesterolemia 136 36596 E78.00 check fasting, goal for LDL is less than 100, pt is open to meds if needed Screening for malignant neoplasm of breast 988419757 Z12.39 pt to arrange Screening for malignant neoplasm of colon 355959341 Z12.11 pt to set up first appt Major depr ession single episode, in partial remission 03828619 F32.4 better increase to 75mg, pt thinks it really helped [id number] Pradeep Villareal MD Main Office [address] [address] [place] [address] 02/19/2020 13:12:46 02/19/2020 14:48:41 Type 2 diabetes mellitus without complication 723225892 E11.9 excellent diabetic control. Continue exercise and diet and metformin. Continue CGM use. If A1c is under 6, we will lower metformin ER to 500 mg daily. F/u as scheduled. F/u 3 m. Repeat nonfasting labs. [id number] Pradeep Villareal MD Main Office [address] [address] [place] [address] 02/26/2020 09:24:11 02/26/2020 09:41:30 [id number] Oli crawford MD [facility] [address] [address] [place] [address] 04/23/2020 12:54:04 04/23/2020 15:46:30 Essential hypertension 79880804 I10 one episode of low BP, sounds related to poor hydration, pt will hydrate cut down coffee, if low BP or dizziness again will stop norvasc and keep losartan o help with renal protection for DM Low back pain 125585028 M54.5 upper and lower back pain. use meds as needed Type 2 joe betes mellitus without complication 091236899 E11.9 followed by Margo, good control, on losartan for renal protection Insomnia 495075617 G47.0 0 reduce coffee. was up to 4 cups [id number] Pradeep Villareal MD Main Office [address] [address] [place] [address] 05/28/2020 14:47:31 05/28/2020 16:00:49 Type 2 diabetes mellitus without complication 466748153 E11.9 excellent diabetic control. Continue exercise and diet and metformin. Continue CGM use 2 weeks out of the month. F/u 4-6 m. repeat labs. Weight gain 1486310 R63. 5 we will check thyroid again. Pt. continues with hypnosis for weight loss. Hyperlipidemia 10658313 E78.5 [id number] Oli crawford MD Main Office [address] [address] [place] [address] 06/26/2020 15:43:28 06/26/2020 16:24:18 Essential hypertension 12107524 I10 BP is elevated today, will increase losartan to 75mg a day from 50mg and recheck in 6 weeks Sleep apnea 21111617 G47 .30 using CPAP, it disrupts sleep but she knows important to use Type 2 joe betes mellitus without complication 627999843 E11.9 followed by Margo, good control, on losartan for renal protection , not losing weight though A1C is 5.6 Body mass index 40+ - severely obese 141729204 Z68.41 did hypnosis refresher, A1C down but weight is not going down, pt states she is eating very strict, pt will discuss [facility] Lawrence Morbid obesity 345054449 E66.01 [id number] Luis Daniel Bucio MD Main Office [address] [facility] [address] [place], [place] [address] 06/28/2020 13:28:18 06/28/2020 15:25:28 [id number] Luis Daniel Bucio MD Main Office [address] [facility] [address] [place] [address] 07/29/2020 10:37:57 07/29/2020 10:40:07 [id number] Pradeep Villareal MD Main Office [address] [facility] [address] [place] [address] 08/28/2020 09:30:18 08/28/2020 09:32:40 [id number] Oli crawford MD Main Office [address] 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 Continue exercise and diet. Continue CGM use 2 weeks out of the month. f/u 4 m. Continue with hypnosis and weight management . Hypercholesterolemia 136 29391 E78.00 start atorvastat in 20 mg and repeat labs fasting in 6 weeks. [id number] Iggy Montague MD Main Office [address] [place] [address] 09/30/2020 14:29:57 09/30/2020 15:23:24 [id number] Margo Gonzales PA-C [facility] [address] [place] [address] 01/29/2021 11:37:39 01/29/2021 13:37:31 Type 2 diabetes mellitus without complication 700283861 E11.9 excellent diabetic control. Continue exercise and diet. Continue CGM use 2 weeks out of the month. f/u 4 m. Continue weight management . Morbid obesity 992428060 E66.01 Pt. is advised to discuss with weight management use of GLP-1 in addition or w/o phentermin e. Also, consider counseling for bariatric surgery. Body mass index 40+ - severely obese 015917321 Z68.42 [id number] Oli crawford MD Main Office [address] [place] [address] 02/07/2021 09:13:21 02/07/2021 10:10:08 Adult health examination 837154020 Z00.00 due for colonoscop y, info give to pt again, mammo and pap to be arranged by pt, continue exercise. Essential hypertension 98429392 I10 well controlled Hypercholesterolemia 136 22615 E78.00 excellent control Screening for malignant neoplasm of colon 389363534 Z12.11 pt to set up first appt Major depr ession single episode, in partial remission 00328789 F32.4 better increase to 75mg, pt thinks it really helped Type 2 joe betes mellitus without complication 653827542 E11.9 followed by Margo, good control, on losartan for renal protection , not losing weight though A1C is 5.6 Perimenopa usal disorder 044105138 N95.9 hot flashes and brain fog [id number] Trever Marks MD Main Office [address] [address] [place] [address] 06/10/2021 08:41:56 06/10/2021 09:28:50 Type 2 diabetes mellitus without complication 444960428 E11.9 Continue CGM use 2 weeks out of the month. WE will try GLP-1 ozempic at 0.25 mg weekly for 2-4 weeks, then 0.5 mg. Possible side effects reviewed. F/u 6 weeks. If pt. tolerates Ozempic , in 4 weeks we will stop metfromin. Body mass index 40+ - severely obese 121597571 Z68.42 refer to bariatric program. Morbid obesity 708659915 E66.01 [id number] Iggy Montague MD [facility] [address] [address] [place] [address] 08/11/2021 13:49:40 08/12/2021 09:34:26 Type 2 diabetes mellitus without complication 258252493 E11.9 Continue CGM use 2 weeks out of the month. Increase trulicity to 1.5 mg weekly. D/c metformin to avoid GI upset. Repeat A1c. F/u 3 m. [id number] Oli crawford MD Main Office [address] [address] [place] [address] 08/15/2021 10:26:24 08/15/2021 11:03:06 Essential hypertension 45305235 I10 well controlled continue meds Needs infl uenza immunization 517884848 Z23 Major depr ession single episode, in partial remission 43062308 F32.4 better with increase to 75mg, pt thinks it really helped Type 2 joe betes mellitus without complication 351385825 E11.9 followed by Margo, good control, on losartan for renal protection , not losing weight though A1C is 5.6 new on Trulicity Sleep apnea 47788522 G47 .30 using CPAP, it disrupts sleep but she knows important to use Low back pain 203935672 M54.59 Body mass index 40+ - severely obese 766385307 E66.01 Z68.41 on Trulicity and really hoping pt gets weight loss results, talked about using my fitness pal [id number] Trever Marks MD [facility] [address] [facility] [address] [place] [place] [address] 01/19/2022 08:47:21 01/22/2022 11:11:06 Type 2 diabetes mellitus without complication 143972582 E11.9 Recommend to continue current meds, but return to diabetic portion control and better choice of foods and exercise activity. Repeat labs fasting . If A1c is elevated, we will revisit in 6 weeks , otherwise 3 m. Recommend to use CGM 2 weeks out of the month at least. Hypercholesterolemia 136 87709 E78.00 start atorvastat in 20 mg and repeat labs fasting in 6 weeks. [id number] Oli crawford MD Main Office [address] [facility] [address] [place] [address] 02/25/2022 09:03:53 02/25/2022 09:54:22 Adult health examination 087405461 Z00.00 utd on colonoscop y, imammo utd and pap to be arranged by pt, continue exercise. Essential hypertension 89986252 I10 well controlled continue meds Major depr ession single episode, in partial remission 58063860 F32.4 well treated [id number] Trever Marks MD Main Office [address] [facility] [address] [place] [place] [address] 07/07/2022 10:52:54 07/07/2022 11:53:03 Type 2 diabetes mellitus without complication 066213800 E11.9 Recommend to continue Trulicity 3mg/0.5mL and metformin 500mg, but return to diabetic portion control and better choice of foods and exercise activity. Repeat labs after next visit. F/u 4 m. Essential hypertension 38045106 I10 Blood pressure is well controlled , will continue with amLODIPine 5mg and follow up in 4m. [id number] Oli crawford MD Main Office [address] [facility] [address] [place] [address] 09/04/2022 10:01:23 09/04/2022 12:07:58 [id number] Oli crawford MD [facility] [address] [facility] 207 [facility] [place] [address] 09/09/2022 08:46:20 09/10/2022 10:38:45 History of appendectomy 796291857 Z90.49 off abx, drain out, much improved, f/u with surgeon if needed Essential hypertension 95973773 I10 well controlled continue meds Major depr ession single episode, in partial remission 19586458 F32.4 stress with surgery, doing better. [id number] Iggy Montague MD [facility] [address] [facility] 207 [facility] [address] 10/06/2022 08:03:18 10/06/2022 10:07:18 COVID-19 253134044 U07.1 pt already feeling better in general - no willis, sob, myalgias, f/c - so doubt paxlovid would be of any further benefit here 5-6 days into sxs --- see below re: cough, and rec. vit D for a few days to help boost her immune system Counseling 751816530 Z71 .9 Health advice, education or counseling done for COVID 19 Cough 72891205 R05.9 cough is most likely d/t pnd since has nasal congestion /runny nose and no chest congestion /sob - rec ns spray, steam from teapot, and prn tessalon to help as a cough suppressan t - sara d/t pain in area of recent appy which hurts from coughing [id number] Margo Gonzales PA-C Main Office [address] [facility] [address] [place] [address] 10/27/2022 09:23:35 10/27/2022 10:15:10 Type 2 diabetes mellitus without complication 252840137 E11.9 stable diabetes, but weight is going up. WE will replace Trulicity 3 mg with mounjaro at starting dose 2.5 mg weekly. Increase to 5 mg after the first month if tolerated. F/u 6 weeks. Essential hypertension 58299478 I10 BP is elevated today , unclear if runs above norm at home. Pt. is advised to test at home and has bertrand with PCP in November. Hypercholesterolemia 136 48435 E78.00 increase atorvastat in to 40 mg and repeat labs fasting in 6 weeks. [id number] Oli crawford MD Main Office [address] [facility] [address] [place] [address] 11/13/2022 09:00:49 11/13/2022 10:03:06 Major depression single episode, in partial remission 53165739 F32.4 on meds and doing ok. Essential hypertension 27657481 I10 well controlled continue meds Type 2 joe betes mellitus without complication 439597877 E11.9 followed by Margo, good control, on losartan for renal protection , not losing weight though A1C is in 6.2 range Body mass index 40+ - severely obese 172783523 E66.01 Z68.41 on Trulicity and really hoping pt gets weight loss results, [id number] Trever Marks MD Main Office [address] [address] [place] [address] 12/08/2022 14:09:41 12/08/2022 14:14:35 [id number] Trever Marks MD [facility] [address] [address] [place] [address] 01/04/2023 14:08:30 01/04/2023 16:20:33 Type 2 diabetes mellitus without complication 135409273 E11.9 stable diabetes but weight is going down slowly. We should increase mounjaro to 7.5 mg weekly and continue low calorie diet and increase exercise activity. Repeat all labs and urine. Hypercholesterolemia 136 44233 E78.00 continue atorvastat in to 40 mg and repeat lipids Essential hypertension 81943390 I10 BP is elevated at home and was above norm in office in November. Advise to increase amlodipine to 10 mg daily and continue losartan. Watch for dependent edema, lower sodium and fluids. Continue testing bp at home few time weekly. [id number] Trever Marks MD Main Office [address] [address] [place] [address] 01/19/2023 10:42:11 01/19/2023 10:46:22 [id number] Trever Marks MD Main Office [address] [address] [place] [address] 03/02/2023 09:08:15 03/02/2023 09:10:20 [id number] Trever Marks MD Main Office [address] [facility] [address] [place] [address] 04/06/2023 10:46:28 04/06/2023 12:07:38 Adult health examination [id number] Z00.00 vaccines are up to date. Refer to [facility] and for mammogram. Low back pain 088975455 M54.50 uses muscle relaxants PRN for muscle spasms. Type 2 joe betes mellitus without complication 221570654 E11.9 stable diabetes but weight is going down slowly. We should increase mounjaro to 10 mg weekly and continue low calorie diet and increase exercise activity. Repeat all labs and urine. F/u 3-4 m. Essential hypertension 01378316 I10 Stable HTN on meds. continue low sodium diet. Hypercholesterolemia 136 52763 E78.00 continue atorvastat in and low fat diet. Major depr ession single episode, in partial remission 85476522 F32.4 stable , but anxiety is still in mild range. Increase to 100 mg daily on sertraline . Psoriasis 1923351 L40.9 stable. Sleep apnea 63393554 G47 .30 continue nightly CPAP. Body mass index 40+ - severely obese 487469828 Z68.42 conitnue MOUnjaro, exercise daily and continue low jaja diet. Screening for malignant neoplasm of breast 054487642 Z12.39 Screening for malignant neoplasm of cervix 606283712 Z12.4 Bertrand scheduled for June. Morbid obesity 732586781 E66.01 [id number] Trever Marks MD Main Office [address] [facility] [address] [place] [address] 04/13/2023 13:52:49 04/13/2023 14:23:13 [id number] Margo Gonzales PA-C Main Office [address] [facility] [address] [place] [place] [address] 07/20/2023 09:54:50 07/20/2023 10:37:43 Type 2 diabetes mellitus without complication 991891618 E11.9 stable diabetes but weight is going down slowly. We will increase mounjaro to 12.5 mg weekly and continue low calorie diet and increase exercise activity. Repeat A1c.F/u 3 m Essential hypertension 72763735 I10 Stable HTN on meds. continue low sodium diet. Needs infl uenza immunization 540610616 Z28.39 [id number] Trever Marks MD Telehealt [address] [place] [address] 10/25/2023 10:29:20 10/25/2023 11:04:04 Type 2 diabetes mellitus without complication 965084752 E11.9 stable diabetes but weight is going down slowly. At this point , I would suggest to discontinu e metfromin er 500 mg and continue on mounjaro at 12.5 mg weekly. WE will restart remote uploads every 2 months . Repeat labs prior to next visit fasting. F/u 3-4 m. Essential hypertension 41313981 I10 Stable HTN on meds. continue low sodium diet. Major depr ession single episode, in partial remission 98910001 F32.4 Worsening of anxiety due to personal stress. Continue sertraline 100 , but recommend therapy as well. F/u 3 m or sooner. [id number] Trever Marks MD Main Office [address] [place] [address] 12/28/2023 11:10:43 12/28/2023 12:43:54 [id number] Margo Gonzales PA-C Main Office [address] [place] [address] 01/25/2024 13:49:01 01/25/2024 15:06:23 Type 2 diabetes mellitus without complication 751570007 E11.9 A1C is 5.6% today. Pt using CGM with last upload in December with target range of 99%. 1 episode of hypoglycem ia that she was not symptomati c for. Average glucose is 113. Continue Mounjaro 12.5 mg. Repeat labs prior to next follow up. Pt overdue for diabetic eye exam. Referral sent. Diabetic foot exam completed today. F/u 3-4 m. Low back pain 392307524 M54.50 uses muscle relaxants PRN for muscle spasms. Pt needs refill as she lifted heavy child yesterday and is having pain Hypercholesterolemia 136 41122 E78.00 continue atorvastat in and low fat diet. Body mass index 40+ - severely obese 590213121 Z68.42 Refer pt to bariatrics Morbid obesity 171455114 E66.01 Mounjaro working well for pts diabetes however she is not losing weight. Refer pt to bariatrics [id number] KEN CLARK MD Main Office [address] [facility] [address] [facility] [place], [place] [address] 02/22/2024 08:11:38 02/22/2024 08:15:08 [id number] Iggy Montague MD Main Office [address] [facility] [address] [place], [place] [address] 04/19/2024 08:29:20 04/19/2024 08:33:50 [id number] Iggy Montague MD Main Office [address] [facility] [address] [place], [place] [address] 04/25/2024 10:21:36 04/25/2024 11:23:28 Adult health examination 414765528 Z00.00 vaccines are up to date. Refer to [facility] and for mammogram. Essential hypertension 83924182 I10 Stable HTN on meds. continue low sodium diet. Hypercholesterolemia 136 54746 E78.00 continue atorvastat in and low fat diet. Hyperparathyroidism 6699 9008 E21.3 stable Major depr ession single episode, in partial remission 88804925 F32.4 Stable on current meds. Sleep apnea 32682609 G47 .30 continue nightly CPAP. Steatotic liver disease 338545432 K76.0 Pt. is loosing weight with mounjaro. continue weight management through [facility] bariatric program. Pt. is planning gastric sleeve procedure in June if all pre evaluation is normal. Type 2 joe betes mellitus without complication 428851433 E11.9 A1C is 5.6% in January. , repeated by bariatrics yesterday. Pt using CGM with every 6 week uploads. . Continue Mounjaro 12.5 mg. F/u 4 m. Genital li coker sclerosus 330222267 L90.0 stable. Body mass index 40+ - severely obese 987084664 Z68.42 Seen by bariatric program in [place] and being evaluated to have gastric sleeve in June. Morbid obesity 887909360 E66.01 [id number] Iggy Montague MD Main Office [address] [facility] [address] [place] [address] 06/16/2024 08:07:08 06/16/2024 08:11:44 [id number] Iggy Montague MD Main Office [address] [facility] [address] [place] [address] 07/03/2024 10:04:19 07/03/2024 12:36:35 [id number] Iggy Montague MD Main Office [address] [facility] [address] [place] [address] 08/15/2024 09:08:36 08/15/2024 09:12:56 [id number] Iggy Montague MD Main Office [address] [place] [address] [place] [address] 08/29/2024 13:40:59 08/29/2024 15:10:23 Type 2 diabetes mellitus without complication 536276254 E11.9 A1C is 5.2% today. PT. lost 60 lbs post bariatric surgery 2 months ago. Recom to continue periodic glucose testing via fingerstic ks, diabetic diet and exercise. F/u 4 m. Needs infl uenza immunization 496999728 Z23 19 YEARS AND OLDER ONLY Essential hypertension 81463071 I10 elevated blood pressure due to discontinu ation of meds post bariatric procedure. Recom to restart losartan at 25 mg daily for now and test bp at home. Continue low sodium diet. Major depr ession single episode, in partial remission 90829554 F32.4 Increased PHQ score due to grieving. WE will increase sertraline to 150 mg daily and recom griev counseling . Low back pain 808368852 M54.50 uses muscle relaxants PRN for muscle spasms. Pt needs refill as she lifted heavy child yesterday and is having pain [id number] Iggy Montague MD Main Office [address] [facility] [address] [place] [address] 10/13/2024 10:47:13 10/13/2024 11:40:55 Major depression single episode, in partial remission 27630693 F32.4 Increased PHQ score moderate to severely elevated at 16 with secondary insomnia. Pt. lost er mom in July and just lost her cousin a week ago. WE will increase bupropion XL to 450 mg daily nad sertraline continue at 150 mg. Repeat EKG. Pt. denies palpitatio ns, dizziness. F/u 6 weeks. Psychophys iologic insomnia 097068152 F51.04 see above. Add melatonin at dinner 5 mg. [id number] Iggy Montague MD Main Office [address] [place] [address] 11/15/2024 14:28:17 11/15/2024 15:11:24 Type 2 diabetes mellitus without complication 311485779 E11.9 A1C is 5.4% today. Pt. lost 70 lbs since January of last year,. Had bariatric procedure in June and is doing very well. Continue diabetic diet and exercise. Check glucose on to twice weekly by fingerstic ks. F/u 4-5 m. Repeat fasting labs. Essential hypertension 58146641 I10 Blood pressure is borderline elevated. PT. was advised to continue losartan 50 mg and restart bp testing at home. Continue low sodium diet. F/u 3-5 m. Body mass index 30+ - obesity 120408378 E66.01 Z68.37 Continue loosing weight post bariatric procedure. History of bariatric surgical procedure 152096604 Z98.84 PT. had procedure in June. Total weight loss since January of 2024 is 72 lbs. F/u with bariatric. Hypercholesterolemia 136 27866 E78.00 continue atorvastat in and low fat diet. [id number] Iggy Montague MD Main Office [address] [place] [address] 04/27/2025 08:17:36 04/27/2025 09:35:23 Adult health examination 286573069 Z00.00 vaccines are up to date. F/u with social sciences department chair for mammo and pap. Essential hypertension 46724729 I10 Blood pressure is stable, taking meds. Does not follow low sodium diet (eats protein bars, protein smoothie, meat and vegetables - prescribed by bariatric surgeon). Exercises 3x/week.Co ntinue losartan and test bp at home weekly. Type 2 joe betes mellitus 06290324 E11.9 95409574 A1C is 5.1% today. Pt. lost 75 lbs since bariatric surgery in June of 2024. Continue current management . F/u 6 m. Steatotic liver disease 068337692 K76.0 Stable liver function tests. Sleep apnea 54766202 G47 .30 No longer wears cpap since weight loss. Psoriasis 1221631 L40.9 elbows and scalp is worse and uses topical desoximeta sone. Followed by derm w/ f/u scheduled in 2 m. Major depr ession single episode, in partial remission 53624315 F32.4 PHQ-9 11 and SHAUN 7, inc life stressors with the recent of her mother. Counseling apt scheduled for this afternoon. Takes bupropion 150 XR and sertraline 100 mg. Cont counseling , meds, and weekly exercise. Hyperparathyroidism 6699 9008 E21.3 stable Hypercholesterolemia 136 68544 E78.00 continue atorvastat in and low fat diet. Lipids done 2 months ago are on target. Repeat in 1 year. Body mass index 30+ - obesity 734929693 E66.01 Z68.37 Continue losing weight post bariatric procedure. Genital li coker sclerosus 962713203 L90.0 stable. Non-scarring alopecia 23 8983499 L65.9 6108794 Pt reports significan t hair loss in shower and hair thinning since October 2024. Labs are all stable including TSH and CBC. It's likely related to significan t post bariatric surgery weight , loss. Rec daily supplement like Nutrafol, keratin shampoo, and topical minoxidil. F/u in 6 m. Health Concerns Section Related Observation LastModified by Organization Detai ls LastModified Time None Recorded Concern Status LastModified by Organization Details LastModified Time None Recorded Advance Directives Directive N: Payers Insurance Date Sequence Insurance Name Policy Number Policy Peoples Covered Member ID Peoples Member ID Guarantor Name 05/08/2025 1 [place]: [facility] [id number] Kamini Rodriguez [id number] Kamini Rodriguez Notes Date Note Type Note Provider Name and Address Organization Details Recorded Time 4 text/html Hypertension F/UReported by PatientHPIFor lifestyle, patient reportsnot exercising regularlybut reportslimiting/avoiding salt. For associated symptoms, patient reportsno dizziness,no lightheadedness,no chest pain,no shortness of breath,no palpitations,no edema, andno calf pain with exertion. For medications, patient reportstaking medications as directed,no side effects from medication, andchecks blood pressure at home, range:.BP is elevated in office today. PT. is off her bp meds for 1 months post bariatric surgery. Diabetes F/UReported by PatientHPIFor context, patient reportsnot taking aspirin dailybut reportsnormal range of home blood sugars (in the low 100s),seeing eye doctor regularly, andchecking feet regularly. For associated symptoms, patient reportsweight loss (51 lbs)but reportsno dizziness,no sweats,no headaches,no confusion,no increased thirst,no increased appetite,no increased urination,no blurred vision,no numbness of feet, andno calluses on feet.HgA1c is 5.2% today. Pt. is off GLP-1 post bariatric procedure in June. Pt. was on mounjaro at 12 mg weekly and lost sign amount of weight preprocedure.Had diabetic eye exam in April.Pt does not see podiatry. Denies numbness or tingling. ROS as noted in the HPI 54 year old female for f/u on DM. Pt .is s/p gastric sleep done at [facility] end of June. Lost over 60 lbs so far. Pt. was gradually taken off her both antihypertensive meds, amlodipine 10 mg and losartan 100 mg. Her blood pressure today is elevated on 2 checks. She has not been monitoring it at home, but reports increased stress . She recently lost her mother and is actively grieving. Feels down, tearful a lot. PHQ score is 9 on today's visit. Pt.is on sertraline 100 mg. Margo Gonzales PA-C [address] [facility] [address], [place], [address], [facility] 08/29/2024 16:57:23 4 text/html ROS as noted in the HPI Patient has had the of both mother and cousin recently causing worsening of depression symptoms. PHQ today is 16 , SHAUN 7. PT. is not sleeping well. Current meds: bupropion XL 300 mg and sertraline 150 mg daily. Pt has bertrand with new therapist next week. Margo Gonzales PA-C [address] [facility] [address], [place], [address], [facility] 10/13/2024 12:06:19 5 text/html Hypertension F/UReported by PatientHPIFor lifestyle, patient reportsnot exercising regularlybut reportslimiting/avoiding salt. For associated symptoms, patient reportsno dizziness,no lightheadedness,no chest pain,no shortness of breath,no palpitations,no edema, andno calf pain with exertion. For medications, patient reportstaking medications as directed,no side effects from medication, andchecks blood pressure at home, range:.Blood pressure is borderline elevated today. Pt. was restarted on losartan at 50 mg dose. Has not been testing bp at home. Keeps healthy low sodium diet. Diabetes F/UReported by PatientHPIFor context, patient reportsnot taking aspirin dailybut reportsnormal range of home blood sugars (in the low 100s),seeing eye doctor regularly, andchecking feet regularly. For associated symptoms, patient reportsweight loss (51 lbs)but reportsno dizziness,no sweats,no headaches,no confusion,no increased thirst,no increased appetite,no increased urination,no blurred vision,no numbness of feet, andno calluses on feet.HgA1c is 5.4% today. Pt. is off GLP-1 post bariatric procedure in June. Pt. was on mounjaro at 12 mg weekly and lost sign amount of weight preprocedure. Lost total of 72 lbs since January of last year.Had diabetic eye exam in April.Pt does not see podiatry. Denies numbness or tingling. Anxiety/DepressionReporte d by PatientHPIFor quality, patient reportssymptoms improved. For severity, patient reportsable to maintain relationshipsanddoes not interfere with activities of daily living. For context, patient reportsno major life stressors(bereavement). For modifying factors, patient reportscounselling,social support, andmedications as directed(wellbutrin was increased to 450 mg. pt. felt relief almost right away in few days.). For associated symptoms, patient reportsmood good,no anxiety,sleeping well,appetite good,energy good,no apathy, andmaintaining functionality.ROS as noted in the HPI 54 year old female for f/u. Margo Gonzales PA-C [address] [facility] [address], [place], [address], [facility], [place] 11/15/2024 15:16:19 5 text/html Generic [facility] TemplateReported by [id number] year old female for annual PE.Stable type II diabetes , A1c was 5.1% 2 months ago. Complete labs done by bariatrics and were all stable including lipids, chemistry , TSH, insulin level. Pt. does not wear CGM any longer. Weight loss 75 lbs from bariatric surgery since June of 2024.HTN is stable on meds.Hyperlipidemia treated and stable on meds.BMI is 36.6.No longer wears CPAP since losing 75 lbs.PHQ score is 11, SHAUN is 7. Pt. is on 100 mg of sertraline and bupropion XL 450 mg and seeing therapist.Mammogram is due in 2 months. PapSmear is up to date. Colonoscopy normal in 2020 with 10 year recall.Vaccines are up to date.New complaints of hair loss in October (taking supplemental Vitamin A and Vitamin D and noticed some improvement). Notices hair loss in shower without scarring. Requesting minoxidil prescription.Reports vision is worsening even with glasses, diagnosed with astigmatism.ROS as noted in the HPI Margo Gonzales PA-C [address] [facility] [address], [place], [address], [facility], [place] 04/27/2025 10:28:45 OBGyn Episode No OBEpisode recorded.
== END 2025-08-22 12:25 | disposition home or self-care (01) ==
LOC: HO.HBS 12:24
PROVIDERS: PCP Physician Assistant Medical; Visit Provider Physician Assistant Surgical
DX: E66.9 Obesity, unspecified (principal); Z68.35 Body mass index [BMI] 35.0-35.9, adult; Z90.3 Acquired absence of stomach [part of]; Z98.84 Bariatric surgery status
CPT/HCPCS: 98967